=== PATIENT | female | born 1975 | race Caucasian/White ===

== ENCOUNTER 2021-09-19 08:34 | Outpatient (CLI) | payer BC, SELFPAY ==
[2021-09-19 09:16] LABS: Hematocrit 28.3 % (37.0-47.0); Hemoglobin 7.5 g/dL (12.0-15.0)
== END 2021-09-19 08:35 | disposition home or self-care (01) ==
LOC: ANHSURGERY 08:40
PROVIDERS: PCP Family Medicine; Visit Provider Student in an Organized Health Care Education/Training Program
DX: Z01.812 Encounter for preprocedural laboratory examination (principal); N92.0 Excessive and frequent menstruation with regular cycle
CPT/HCPCS: 36415; 85014; 85018

== ENCOUNTER 2021-09-23 00:15 | Day surgery (SDC) | payer BC, SELFPAY ==
[2021-09-17 14:37] VITALS: BMI 23.9
--- NOTE | 2021-09-17 14:47 | PC.NURSE ---
Report to the Outpatient Waiting Room, entrance under the green pavilion located off [facility], at time 11:00 on date 09/23/21. OR Time: 1:00. - You and your visitor will be asked a series of questions to screen for COVID 19 for your protection. - Only one visitor is allowed at this time. - The patient visitor is requested to leave or wait in car when not with patient. - A mask is required within the hospital. Patients may have clear liquids (water, carbonated beverages, clear teas, apple juice) until 3 hours prior to surgery (10:00) with a maximum of 20 ounces. - No food from midnight until time of surgery Take the following medications with a SIP of water the morning of surgery: NONE Medications to discontinue per physician: N/A Date to take last dose: N/A Please no make-up, nail venezuelan, hairspray, perfume, deodorant, or body powder the day of surgery. No jewelry (including any body piercings) or valuables the day of surgery, leave them at home. Please take a shower or bath the night before, or the morning of, surgery with an antibacterial soap. Wear comfortable, loose fitting clothing. - Jewelry must be removed prior to entering the operating room. Rings and piercings that are not removed may be cut off. - The hospital will not accept responsibility for valuables. - Please leave all valuables, including medications, at home the day of surgery. If you are going home after surgery, a licensed limo driver must drive you home. - NO public transportation without another adult. - We recommend that an adult stay with you for 24 hours following discharge. - We also recommend that you do not drive, make important decision, drink alcoholic beverages, or take any drugs that were not prescribed by your health care provider for at least 24 hours after your discharge time. Follow any additional instructions given to you from your surgeon. If you or anyone in your household have experienced Covid symptoms in the past week, please notify your surgeon or the nurse liaison at the phone number below for possible testing. Telephone instructions given to PT - KATE ROSSI and asked if any additional questions and then verbalized understanding. Patient advised to call surgeon office or pre surgery nurse liaison [phone] if any additional questions.
--- NOTE | 2021-09-23 08:00 | PM.IMHP ---
H&P: HPI History of Present Illness Date/Time: 09/23/21 08:00 Chief Complaint: Abnormal uterine bleeding Narrative: 46 yo who presents for hysteroscopy, D&C, endometrial ablation for abnormal uterine bleeding. Pt was complaining of heavy menses. Hgb found to be 7.5. She refused hormonal contraceptives and requested surgical management via ablation. Review of Systems Cardiovascular: Cardiovascular: Denies chest pain, Denies leg edema, Denies palpitations, Denies dyspnea and Denies dyspnea on exertion Respiratory: Respiratory: Denies cough, Denies dyspnea and Denies dyspnea on exertion Gastrointestinal: Gastrointestinal: Denies abdominal pain, Denies constipation, Denies diarrhea, Denies nausea and Denies vomiting Genitourinary: Genitourinary: Denies hematuria, Denies urinary frequency, Denies dysuria, Denies pelvic pain, Denies urinary incontinence and Denies vaginal discharge Neurologic: Reports system reviewed and no additional complaints, except as documented Psychiatric: Psychiatric: Reports no additional psychiatric complaints Endocrine: Endocrine: Denies palpitations [facility] Past Medical History Medical History Chronic insomnia Crohn's disease Labral tear of right hip joint Surgical History Surgical History History of delivery Social History Social History (Updated 03/16/20 @ 10:05 by Maria R Norman NP) Smoking status: Never smoker Alcohol intake: current Drinks per week: 1 Alcohol use details: One to two drinks per month Substance use: never Substance use type: does not use Living arrangements: with family Spiritual care concerns: No Meds Home Medications and Allergies Home Medications Medication Instructions Recorded Confirmed Type Low Dose Testosterone 1 applic transdermal DAILY 09/17/21 09/17/21 History Allergies Allergy/AdvReac Type Severity Reaction Status Date / Time erythromycin base AdvReac Nausea Verified 09/17/21 14:35 Exam Const: General: no acute distress Eyes: EOM: EOMs intact bilaterally Neck: Neck: supple Thyroid: thyroid normal Chest: Breast/axilla inspection: normal inspection of the breasts Breast/axilla palpation: normal palpation of the breasts, normal palpation of the axillae and no axillary lymphadenopathy Resp: Effort & Inspection: normal respiratory effort Auscultation: clear to auscultation bilaterally Cardio: Rate: regular rate Rhythm: regular rhythm GI: Inspection: non-distended GI Palp: Yes Soft to palpation, No Tenderness to palpation present (GI) and No Guarding due to palpation present (GI) Auscultation: normal bowel sounds : General: No bladder normal to palpation External Female Exam: normal external appearance Speculum Exam - Vagina: normal vaginal discharge and No vaginal bleeding Speculum Exam - Cervix: nontender Bimanual exam- vagina & uterus: No bladder normal to palpation and No Cervical tenderness present OB/external & speculum: No vaginal bleeding Skin: General skin exam: normal color and no rashes or lesions noted Neuro: Cognition (Neuro): normal cognition Speech: normal speech Extrem: General: normal to inspection and no edema Psych: Mental Status: mental status grossly normal Affect: normal affect Assessment and Plan Assessment and plan (1) Abnormal uterine bleeding (AUB): Code(s): N93.9 - Abnormal uterine and vaginal bleeding, unspecified Status: Acute Assessment and Plan: Pt having heavy menses hgb 7.5, will repeat prior to surgery pt declined hormonal contraceptives pelvic US shows normal myometrium and endometrial cavity plan for hysteroscopy, D&C, endometrial ablation
--- NOTE | 2021-09-23 08:03 | WPDHPUPDATE1 ---
History and Physical Update Update Date/Time: 09/23/21 08:03 History and Physical has been reviewed, including an updated exam of the patient. There are NO changes in the patient's condition. Risks, benefits, and alternatives have been discussed and questions answered. Patient agrees to proceed with procedure.
[2021-09-23 11:22] VITALS: BP 114/71; PULSE 79; RESP 16; TEMP 36.9; O2SAT 100
[2021-09-23] MEDS: LACTATED RINGERS 1,000 ML 30 ML IV CONT ×2 (12:00→13:58)
[2021-09-23 12:12] LABS: Hemoglobin 7.3 g/dL (12.0-15.0)
--- NOTE | 2021-09-23 12:31 | SUR.PREOP ---
per chaparro vincent rn talked with dr velasquez and aware of current H&H ,no orders given.
--- NOTE | 2021-09-23 12:34 | P.PNAN_ITS ---
Anes - Initial Pre Proc Eval Procedure: Operation Date: 09/23/21 13:00 Proposed Procedures p Hysteroscopy Dilation and Curettage, Summer Endometrial Ablation - Raman Ponce MD Date/Time: 09/23/21 12:34 Surgeon: Raman Ponce MD Pre Op Diagnosis: Heavy Bleeding Patient Data Age: 46 Gender: F Height: 1.6 m Weight: 65.1 kg Last Vital Signs Temp 36.9 C 09/23/21 11:22 Pulse 79 09/23/21 11:22 Resp 16 09/23/21 11:22 BP 114/71 09/23/21 11:22 Pulse Ox 100 09/23/21 11:22 O2 Del Method Room Air 09/23/21 11:22 Allergies Allergy/AdvReac Type Severity Reaction Status Date / Time erythromycin base AdvReac Nausea Verified 09/23/21 12:13 Home Medications Medication Instructions Recorded Confirmed Type Low Dose Testosterone 1 applic transdermal DAILY 09/17/21 09/17/21 History Laboratory Tests 09/23/21 11:56 Hgb 7.3 g/dL L g/dL (12.0-15.0) Hct 27.0 % L % (37.0-47.0) Patient hx anesthesia problems: none Family hx anesthesia problems: none Results Review: All pre-operative results and documents have been reviewed as part of the pre-op erative evaluation. [facility] Past Medical History Medical History Chronic insomnia Crohn's disease Labral tear of right hip joint Surgical History Surgical History History of delivery Social History Social History Smoking status: Never smoker Alcohol intake: current Drinks per week: 1 Alcohol use details: One to two drinks per month Substance use: never Substance use type: does not use Living arrangements: with family Spiritual care concerns: No Anes - Eval Final PreProcedure Day of Procedure 09/23/21 12:34 Heart: regular rate and rhythm Lungs: clear to auscultation Airway: Mallampati scale class II Neurological: alert and oriented Last oral intake: >/= 8 hours ASA classification: II Emergent: no Anesthetic plan: proceed Anesthesia type and monitoring: general GIVS and standard monitoring Results Review: All pre-operative results and documents have been reviewed as part of the pre- operative evaluation. Informed Consent: The patient's anesthetic plan and its attendant risks and benefits were discussed with the patient/family/POA. Questions were solicited and answers provided to the satisfaction of the patient/family/POA.
[2021-09-23] MEDS: LIDOCAINE HCL 1% PF 30 ML VIAL 10 ML INFILTRATE (13:14)
--- NOTE | 2021-09-23 13:43 | W.PM.PROC2 ---
Procedure Note - Detailed Date of Procedure 09/23/21 Pre-op Diagnosis Heavy Bleeding Post-op Diagnosis Same Procedure Performed paracervical block hysteroscopy dilation & curettage endometrial ablation Surgeon Raman Ponce MD Indications abnormal uterine bleeding Findings normal appearing intrauterine cavity. Normal tubal ostia bilaterally Description of Procedure Kiersten Mix presents for the above procedure for AUB. She was counseled as to the indications, risks, benefits, and alternatives to surgery, with the risks including bleeding, infection, damage to surrounding organs, VTE, and complications of anesthesia. Her verbal and written consent was obtained. PROCEDURE: The patient was taken to the OR and general anesthesia induced. She was prepped and draped in Lucas stirrups with support of the back and bilateral lower extremities. I/O catheterization performed of the bladder. The above findings were noted. Infiltration with 1% lidocaine at the 3 and 9 o'clock cervical positions was performed. A single tooth tenaculum was placed on the anterior lip of the cervix. The uterus sounded to 8.5 cm. The cervix was dilated with sequential Yvonne dilators. Hysteroscopy, using a normal saline medium, was performed and showed the above findings. Sharp uterine curettage was then performed and tissue placed on Telfa. The Summer device was set to a depth of 6 cm. The device was inserted into the uterus and deployed. Good fit was reassured by the device indicator. The cervical balloon was insufflated to ensure a good seal. Uterine integrity test was performed by the Summer device and was successful. The device was then activated. The entire ablation procedure lasted 120 seconds. The cervical balloon was desufflated and the device was removed from the uterus. The hysteroscope was re-introduced to ensure adequate tissue ablation. The tenaculum was removed and hemostasis was observed. The patient tolerated the procedure well. Sponge, lap, and needle counts were correct. The patient was taken to the recovery room in stable condition. Estimated Blood Loss 25 Urine Output 200 Drains No Packing No Pathology Yes (endometrial curettings ) Complications No immediate complications Condition Stable Disposition PACU
[2021-09-23 13:58] VITALS: BP 107/76; PULSE 61; RESP 20; O2SAT 100
[2021-09-23 14:25] VITALS: BP 117/80; PULSE 61; RESP 20
[2021-09-23] MEDS: oxyCODONE HCL (*CRX) 5 MG TAB IR PO (14:26)
[2021-09-23] MEDS: fentaNYL CITRATE INJ (*CRX) 100 MCG/2 ML VIAL 25 MCG IV PUSH ×2 (14:49→14:55)
[2021-09-23 14:55] VITALS: BP 132/64; PULSE 83; RESP 20
[2021-09-23] MEDS: KETOROLAC 15 MG/ML VIAL (*BKC) IV PUSH (15:17)
[2021-09-23 15:25] VITALS: BP 114/75; PULSE 68; RESP 20
[2021-09-23 15:45] VITALS: BP 104/71; PULSE 72; RESP 20
== END 2021-09-23 15:50 | disposition home or self-care (01) ==
PROVIDERS: PCP Family Medicine; Visit Provider Student in an Organized Health Care Education/Training Program
PROC: 0U5B8ZZ Destruction of Endometrium, Via Natural or Artificial Opening Endoscopic (ICD-10-PCS; CPT 58563; principal; 2021-09-23 13:00)
DX: N93.9 Abnormal uterine and vaginal bleeding, unspecified (principal); N92.0 Excessive and frequent menstruation with regular cycle
CPT/HCPCS: 58563; 36415; 85014; 85018; 88305; A9270; J1885; J2250; J2704; J3010; J7030; J7120

== ENCOUNTER 2021-10-17 16:49 | Outpatient (CLI) | payer BC, SELFPAY ==
--- NOTE | ~2021-10-17 | MM_ITS ---
EXAMINATION: MM screening frank BI w itzel HISTORY: Screening mammogram TECHNIQUE: Craniocaudal and mediolateral oblique 3-D tomosynthesis images were obtained and synthetic 2-D images were generated. CAD analysis was submitted and interpreted. COMPARISON: No prior mammogram is available for comparison at this institution. BREAST PARENCHYMAL COMPOSITION: The breasts are extremely dense, which lowers the sensitivity of mamm ography. FINDINGS: There is no suspicious mass, calcification, or architectural distortion to suggest malignan cy in either breast. IMPRESSION: 1. No mammographic evidence of malignancy. 2. Recommend routine screening mammography in one year. BI-RADS Category 1: Negative Reviewed, dictated and finalized at location A.
== END 2021-10-17 16:50 | disposition home or self-care (01) ==
PROVIDERS: PCP Family Medicine; Visit Provider Student in an Organized Health Care Education/Training Program
DX: Z12.31 Encounter for screening mammogram for malignant neoplasm of breast (principal)
CPT/HCPCS: 77063; 77067

== ENCOUNTER 2022-02-13 08:57 | Outpatient (CLI) | payer BC, SELFPAY ==
[2022-02-13 10:00] LABS: Basophils Absolute Auto 0.1 K/mm3 (0.0-0.1); Basophils Percent Auto 0.7 % (0.2-1.2); Eosinophils Absolute Auto 0.2 K/mm3 (0-0.3); Eosinophils Percent Auto 3.2 % (0-4.4); Hemoglobin 13.5 g/dL (12.0-15.0); Immature Granulocyte Absolute 0.01 K/mm3 (0.00-0.031); Immature Granulocyte Percent A 0.1 % (0-0.5); Lymphocytes Absolute Auto 1.14 K/mm3 (0.9-3.2); Lymphocytes Percent Auto 16.5 % (18.3-44.2); Mean Corpuscular HGB Conc 32.1 g/dl (32-36); Mean Corpuscular Hemoglobin 28.2 pg (26-34); Mean Corpuscular Volume 87.7 fl (80-100); Mean Platelet Volume 10.1 fl (7.4-10.4); Monocytes Absolute Auto 0.5 K/mm3 (0.1-0.6); Monocytes Percent Auto 7.2 % (2.6-8.5); Neutrophils Percent Auto 72.3 % (45.5-73.1); Platelet Count Result 408 k/mm3 (150-375); Red Blood Count 4.79 M/mm3 (4.2-5.4); Red Cell Distribution Width 14.2 % (11.5-14.5); White Blood Count 6.9 K/mm3 (4.5-10.0)
== END 2022-02-13 08:58 | disposition home or self-care (01) ==
PROVIDERS: PCP Family Medicine; Visit Provider Obstetrics & Gynecology
DX: N93.9 Abnormal uterine and vaginal bleeding, unspecified (principal); Z01.818 Encounter for other preprocedural examination
CPT/HCPCS: 36415; 85025; 86850; 86900; 86901

== ENCOUNTER 2022-02-21 01:20 | Day surgery (SDC) | payer BC, SELFPAY ==
[2022-02-07 08:12] VITALS: BMI 24.8
--- NOTE | 2022-02-07 08:13 | PC.NURSE ---
Report to the Outpatient Waiting Room, entrance under the green pavilion located off [facility], at time _0930_ on date _[id number]_. Planned Procedure Time: _1130_. Time changes happen often and if your time is changed the preop area will call you the afternoon before. - You and your visitor will be asked to self-screen and do not enter if you have any COVID symptoms. - Only one visitor is requested with a max of two and NO children visitors are allowed at this time. - The patient visitor may be requested to leave or wait in car when not with patient due to distancing restrictions. - A mask is optional within the hospital. Patients may have clear liquids (water, carbonated beverages, clear teas, apple juice) until 3 hours prior to surgery with a maximum of 20 ounces. - No food from midnight until time of surgery Take the following medications with a SIP of water the morning of surgery: ___None Medications to discontinue per physician Multivitamin and probiotic Date to take last [phone] Please no make-up, nail mohawk, hairspray, perfume, deodorant, or body powder the day of surgery. No jewelry (including any body piercings) or valuables the day of surgery, leave them at home. Please take a shower or bath the night before, or the morning of, surgery with an antibacterial soap. Wear comfortable, loose fitting clothing. - Jewelry must be removed prior to entering the operating room. Rings and piercings that are not removed may be cut off. - The hospital will not accept responsibility for valuables. - Please leave all valuables, including medications, at home the day of surgery. If you are going home after surgery, a licensed short haul driver must drive you home. - NO public transportation without another adult if you receive anesthesia. - We recommend that an adult stay with you for 24 hours following discharge. - We also recommend that you do not drive, make important decision, drink alcoholic beverages, or take any drugs that were not prescribed by your health care provider for at least 24 hours after your discharge time. Follow any additional instructions given to you from your surgeon. If you or anyone in your household have experienced Covid symptoms in the past week, please notify your surgeon or the nurse liaison at the phone number below for possible testing. Telephone instructions given to __Patient___and asked if any additional questions and then verbalized understanding. Patient advised to call surgeon office or pre surgery nurse liaison [phone] if any additional questions.
--- NOTE | 2022-02-19 07:51 | PM.IMHP ---
H&P: HPI History of Present Illness Date/Time: 02/19/22 07:51 Chief Complaint: Bleeding refractory to medical therapy/pelvic pain Narrative: This is a 46-year-old female status post ablation who continues to have heavy bleeding has been prolonged and uncomfortable. She also has an enlarged uterus. Risks and benefits including not exclusive of , aspiration pneumonia, bleeding, transfusion, perforation injury to bowel, bladder, ureters, or other internal organs with need for open laparotomy secondary to robotic hysterectomy bilateral salpingectomy reviewed. She had all questions answered. She received the [employer] handout entitled hysterectomy as well as the de [place]etta handout. She had all questions answered and asked to proceed PMFSH Past Medical History Medical History Chronic insomnia Crohn's disease Labral tear of right hip joint Surgical History Surgical History H/O prior ablation treatment (~09/2021) History of delivery Social History Social History Smoking status: Never smoker Alcohol intake: current Drinks per week: 1 Alcohol use details: One to two drinks per month Substance use: never Substance use type: does not use Lack of Transportation: No Lack of Food: Never True Current Housing: I Have Housing Concerned About Future Housing: No Difficulty Paying Gas/Electric Bills: No Difficulty Paying for Meds: No Currently Unemployed: No Education: Master's Degree or Higher Difficulty w/ Childcare or Family Care: No Spiritual care concerns: No Meds Home Medications and Allergies Home Medications Medication Instructions Recorded Confirmed Type acetaminophen 500 mg capsule 500 mg PO Q6H PRN pain #30 caps 09/23/21 02/18/22 Rx ibuprofen 600 mg tablet 600 mg PO Q6H PRN pain #30 tabs 09/23/21 02/18/22 Rx lactobacillus comb no.10 20 20,000 mmu cells PO DAILY 02/07/22 02/18/22 History billion cell capsule (Probiotic) multivitamin 1 tablet PO DAILY 02/07/22 02/18/22 History Low Dose Testosterone 1 applic transdermal 3XW 02/14/22 02/18/22 History Allergies Allergy/AdvReac Type Severity Reaction Status Date / Time erythromycin base AdvReac Nausea Verified 02/14/22 08:55 Exam Const: General: cooperative, healthy appearing, comfortable and average body habitus Orientation/consciousness: oriented to person, oriented to place and oriented to time HENMT: Head: normal to inspection Resp: Effort & Inspection: normal respiratory effort Cardio: Rate: regular rate Rhythm: regular rhythm Heart sounds: S1 normal heart sound present and S2 normal heart sound present GI: Inspection: normal to inspection : External Female Exam: normal external appearance Speculum Exam - Vagina: normal appearance of the vagina Speculum Exam - Cervix: normal appearance of the cervix and Cervical os open Bimanual exam- vagina & uterus: enlarged Bimanual Exam- Adnexa, other: normal adnexae Assessment and Plan Assessment and plan (1) Dysmenorrhea: Code(s): N94.6 - Dysmenorrhea, unspecified Status: Acute (2) Enlarged uterus: Code(s): N85.2 - Hypertrophy of uterus Status: Acute Plan Robotic total vaginal hysterectomy and bilateral salpingectomy
--- NOTE | 2022-02-20 12:09 | WPDANESEPPF ---
Anes - Initial Pre Proc Eval Procedure: Operation Date: 02/21/22 11:30 Proposed Procedures p Robotic Assisted Total Vaginal Hysterectomy with Bilateral Salpingectomy - Juan Dumont MD Date/Time: 02/20/22 12:09 Surgeon: Juan Dumont MD Pre Op Diagnosis: Prolong Uterine Bleed, Fail Ablat Enlarge Uterus Patient Data Age: 46 Gender: F Height: 1.6 m Weight: 63.6 kg Allergies Allergy/AdvReac Type Severity Reaction Status Date / Time erythromycin base AdvReac Nausea Verified 02/14/22 08:55 Home Medications Medication Instructions Recorded Confirmed Type acetaminophen 500 mg capsule 500 mg PO Q6H PRN pain #30 caps 09/23/21 02/21/22 Rx ibuprofen 600 mg tablet 600 mg PO Q6H PRN pain #30 tabs 09/23/21 02/21/22 Rx lactobacillus comb no.10 20 20,000 mmu cells PO DAILY 02/07/22 02/21/22 History billion cell capsule (Probiotic) multivitamin 1 tablet PO DAILY 02/07/22 02/21/22 History Low Dose Testosterone 1 applic transdermal 3XW 02/14/22 02/18/22 History hydrocodone 5 mg-acetaminophen 325 1 tablet PO Q4H PRN pain #30 tabs 02/21/22 Rx mg tablet Patient hx anesthesia problems: none Family hx anesthesia problems: none Results Review: All pre-operative results and documents have been reviewed as part of the pre-operative evaluation. [facility] Past Medical History Medical History (Updated 02/19/22 @ 07:53 by Juan Dumont MD) Chronic insomnia Crohn's disease Labral tear of right hip joint Surgical History Surgical History (Updated 02/20/22 @ 12:09 by Phillip Marquez DO) H/O prior ablation treatment (~09/2021) History of delivery History of tonsillectomy Social History Social History Smoking status: Never smoker Alcohol intake: current Drinks per week: 1 Alcohol use details: One to two drinks per month Substance use: never Substance use type: does not use Lack of Transportation: No Lack of Food: Never True Current Housing: I Have Housing Concerned About Future Housing: No Difficulty Paying Gas/Electric Bills: No Difficulty Paying for Meds: No Currently Unemployed: No Education: Master's Degree or Higher Difficulty w/ Childcare or Family Care: No Living arrangements: with family Spiritual care concerns: No Anes - Eval Final PreProcedure Day of Procedure 02/20/22 12:09 Patient weight: normal Heart: regular rate and rhythm Lungs: clear to auscultation and normal air movement Airway: Mallampati scale class II Neurological: alert and oriented Last oral intake: >/= 8 hours ASA classification: II Emergent: no Anesthetic plan: proceed Anesthesia type and monitoring: general ETT and standard monitoring Results Review: All pre-operative results and documents have been reviewed as part of the pre-operative evaluation. Informed Consent: The patient's anesthetic plan and its attendant risks and benefits were discussed with the patient/family/POA. Questions were solicited and answers provided to the satisfaction of the patient/family/POA.
[2022-02-21] VITALS (11 sets, daily range): BP systolic 90–110; BP diastolic 50–75; PULSE 56–85; RESP 11–16; TEMP 36.4–37.1; O2SAT 97–100
--- NOTE | 2022-02-21 06:17 | WPDHPUPDATE1 ---
History and Physical Update Update Date/Time: 02/21/22 06:17 History and Physical has been reviewed, including an updated exam of the patient. There are NO changes in the patient's condition. Risks, benefits, and alternatives have been discussed and questions answered. Patient agrees to proceed with procedure.
[2022-02-21] MEDS: ACETAMINOPHEN 500 MG TABLET 1000 MG PO (09:52)
[2022-02-21] MEDS: KETOROLAC 15 MG/ML VIAL (*BKC) IV PUSH (10:16)
[2022-02-21] MEDS: LACTATED RINGERS 1,000 ML 30 ML IV CONT ×3 (10:16→14:16)
[2022-02-21] MEDS: ceFAZolin 2 GM/D5W 50 ML 2 GM/50 ML BAG IVPB (10:45)
--- NOTE | 2022-02-21 12:20 | W.PM.PROC2 ---
Procedure Note - Detailed Date of Procedure 02/21/22 Pre-op Diagnosis Prolong Uterine Bleed, Fail Ablat Enlarge Uterus Post-op Diagnosis Other (Multiple adhesions) Procedure Performed robotic total hysterectomy salpingectomy with extensive lysis of Surgeon Juan Dumont MD Anesthesia General Indications is a 46-year-old female with continued heavy bleeding pelvic pain and findings imaging with enlarged uterus. Findings The uterus was completely adherent to the anterior abdominal wall. Multiple adhesions were seen the ovaries appeared within normal limits the tubes were normal. Description of Procedure Patient was prepped draped in normal sterile fashion placed in dorsal lithotomy position. Under excellent general trach anesthesia weighted speculum placed posterior fornix vagina. Anterior lip of the cervix grasped with a single-tooth tenaculum. The uterus was sounded to 12cm. Serial dilatation with fragmented dilators performed followed by passes the 10. LUCIANO and the 3. Cold cup. Next the 16 [place] catheter was placed in the bladder and bladder drained clear urine. Weighted speculum and single-tooth removed the gloves were changed. Supra umbilical incision made the Veress needle passed in the abdomen. Abdomen filled with CO2 gas to 15 made the 8mm trocar advanced the abdomen downside visualized under seen. Gas reattached the patient placed in Trendelenburg right left lateral quadrant incisions made 8mm trocars advanced under direct visualization assuring no injury. The right upper quadrant incision made the 8mm trocar advanced under direct visualization. The robot was docked. Attention was turned to the console. Multiple adhesions were seen anteriorly the uterus was difficult was difficult to see due to add omental adhesions these were sharply dissected until the uterus could be seen. The uterus was sharply adhesed to the anterior abdominal wall and using sharpDissection with cautery this was serially brought off the anterior abdominal. The left round ligament was then grasped, burned, cut. The right round ligament was grasped, cut, burned. The fallopian tube on the left was markedly adherent to the left lateral sidewall this was sharply dissected away and dissected away from the ovarian complex and left attached to uterine origin. The right fallopian tube was dissected away from the right ovary and the left attached to the uterine origin to be the removed with the specimen. Anteriorly space by spaced the uterus was from the anterior abdominal wall until what appeared to be the bladder could be seen. This involved 35minutes of dissection by going cell layer by cell layer. A bladder flap was then formed and the bladder portion laterally and caudally away from cervix and uterus. The utero-ovarian ligament on the left was skeletonized clamping burning cutting and conserving the left ovary. The right ovary was conserved by clamping burning and cutting the utero-ovarian ligament right and this was brought to the round ligament. The cardinal broad ligaments on the left were then serially skeletonized clamping burning cutting and 3 these down lateral edge to large tortuous uterine vessels could be seen laps were clamped, burned, cut. In like fashion the cardinal broad ligaments on the right were serially skeletonized clamping burning cutting and down the lateral edge of uterus and cervix to the uterine vessels could be seen right. These were individually clamped, burned, cut. A colpotomy incision was made the cervix uterus and tubes removed through the vagina. Hemostasis was assured. Vagina closed with continuous running 0V lock from lateral edge to lateral edge back to the midline. Irrigation undertaken to clear and hemostasis was assured. The robot was undocked. The gas removed from the abdomen. The incisions closed with 4-0 Monocryl and glue. The patient awakened went recovery in satisfactory condition. All sponge, ne
[2022-02-21] MEDS: fentaNYL CITRATE INJ (*CRX) 100 MCG/2 ML VIAL 25 MCG IV PUSH ×8 (12:55→14:06)
--- NOTE | 2022-02-21 14:30 | ADMGEN ---
This patient, Kiersten Mix, was admitted to OB 2nd Floor Room 292-00. Patient/family oriented to hospital policies and general routines including ID bracelet, bed and alarms, visiting hours, pain management, procedures, bathroom and other care routines, personal items, smoking policy, room service/diet, and visiting hours. Information on how to activate the Rapid Response Team has been discussed. Patient/Family are encouraged to report perceived risks to care and to ask questions if they do not understand what they are told or what they should do.
[2022-02-21] MEDS: DEXTROSE 5%/LACTATED RINGERS 1,000 ML 125 ML IV CONT ×2 (14:54→22:49)
[2022-02-21] MEDS: KETOROLAC 30 MG/ML VIAL (*BKC) IV PUSH ×2 (15:49→21:00)
[2022-02-21] MEDS: HYDROcodone/acetaminophen (*CRX) 10-325 MG TABLET 1 TAB PO ×3 (16:31→22:00)
[2022-02-21] MEDS: DOCUSATE SODIUM 100 MG CAPSULE PO (16:31)
[2022-02-21] MEDS: ONDANSETRON INJ 4 MG/2 ML VIAL IV PUSH (19:00)
[2022-02-21] MEDS: SIMETHICONE 80 MG TAB.CHEW PO (21:07)
[2022-02-22 00:20] VITALS: BP 95/58; PULSE 72; RESP 16; TEMP 36.8; O2SAT 98
[2022-02-22] MEDS: SIMETHICONE 80 MG TAB.CHEW PO ×2 (00:30→10:17)
[2022-02-22] MEDS: HYDROcodone/acetaminophen (*CRX) 10-325 MG TABLET 1 TAB PO ×3 (00:30→11:20)
[2022-02-22] MEDS: ONDANSETRON INJ 4 MG/2 ML VIAL IV PUSH ×2 (01:04→07:03)
[2022-02-22] MEDS: KETOROLAC 30 MG/ML VIAL (*BKC) IV PUSH ×2 (01:04→07:01)
[2022-02-22 04:30] VITALS: BP 100/58; PULSE 68; RESP 16; TEMP 36.8
[2022-02-22 04:54] LABS: Basophils Percent Auto 0.4 % (0.2-1.2); Eosinophils Absolute Auto 0.1 K/mm3 (0-0.3); Eosinophils Percent Auto 0.9 % (0-4.4); Hematocrit 32.3 % (37.0-47.0); Hemoglobin 10.5 g/dL (12.0-15.0); Immature Granulocyte Absolute 0.02 K/mm3 (0.00-0.031); Immature Granulocyte Percent A 0.2 % (0-0.5); Lymphocytes Absolute Auto 0.69 K/mm3 (0.9-3.2); Lymphocytes Percent Auto 8.1 % (18.3-44.2); Mean Corpuscular HGB Conc 32.5 g/dl (32-36); Mean Corpuscular Hemoglobin 28.7 pg (26-34); Mean Corpuscular Volume 88.3 fl (80-100); Mean Platelet Volume 10.1 fl (7.4-10.4); Monocytes Absolute Auto 0.7 K/mm3 (0.1-0.6); Neutrophils Percent Auto 82.4 % (45.5-73.1); Platelet Count Result 286 k/mm3 (150-375); Red Blood Count 3.66 M/mm3 (4.2-5.4); Red Cell Distribution Width 14.1 % (11.5-14.5); White Blood Count 8.5 K/mm3 (4.5-10.0)
[2022-02-22] MEDS: DEXTROSE 5%/LACTATED RINGERS 1,000 ML 125 ML IV CONT (06:59)
[2022-02-22 07:00] VITALS: BP 93/57; PULSE 74; RESP 18; TEMP 37.3; O2SAT 96
--- NOTE | 2022-02-22 09:43 | PM.GYNPNOP ---
WATER SYSTEMS ENGINEER - A/P Assessment and plan (1) Enlarged uterus: Code(s): N85.2 - Hypertrophy of uterus Status: Acute Assessment and Plan: A: POD#1, s/p robotic assisted TVHBS, doing well. P: Home to f/u 2 weeks in office. (2) Dysmenorrhea: Code(s): N94.6 - Dysmenorrhea, unspecified Status: Acute (3) Abnormal uterine bleeding (AUB): Code(s): N93.9 - Abnormal uterine and vaginal bleeding, unspecified Status: Acute Postoperative Procedures: Procedures Operation Date: 02/21/22 11:30 Actual Procedure Side Surgeon p Robotic Assisted Total Vaginal Hysterectomy with Bilateral Salpingectomy, Extensive Lysis of Adhesions Juan Dumont MD Postoperative day: 1 Time Spent With Patient Time with patient: less than 15 minutes WATER SYSTEMS ENGINEER- PN:Subj Post-Op Subjective Date/time seen: 02/22/22 09:43 Interval history: Pain OK. Tolerating diet. Voiding. Would like to go home. Exam Narrative: AVSS I/O OK ABD soft, nontender. Incisions c/d/i. EXT nontender WATER SYSTEMS ENGINEER - PN: Obj Data Vital Signs Vital Signs: Vital Signs - 24 hr 02/21/22 10:01 02/21/22 12:35 02/21/22 12:50 Temperature 37.1 C 36.4 C Pulse Rate 85 60 71 Respiratory Rate 16 11 L 12 Blood Pressure 110/71 97/62 L 98/69 L Pulse Oximetry 99 97 100 Oxygen Delivery Room Air Simple Face Mask Simple Face Mask Oxygen Flow Rate 6 6 02/21/22 13:05 02/21/22 13:10 02/21/22 13:20 Temperature Pulse Rate 66 56 L Respiratory Rate 14 12 Blood Pressure 96/65 L 98/63 L Pulse Oximetry 100 97 Oxygen Delivery Simple Face Mask Room Air Room Air Oxygen Flow Rate 6 02/21/22 13:35 02/21/22 13:50 02/21/22 14:05 Temperature Pulse Rate 66 57 L 65 Respiratory Rate 12 12 12 Blood Pressure 95/61 L 90/59 L 93/61 L Pulse Oximetry 98 97 99 Oxygen Delivery Room Air Room Air Room Air Oxygen Flow Rate 02/21/22 14:20 02/21/22 14:45 02/21/22 14:45 Temperature 36.5 C 36.7 C Pulse Rate 76 66 Respiratory Rate 14 16 Blood Pressure 96/63 L 98/50 L Pulse Oximetry 98 97 Oxygen Delivery Room Air Room Air Oxygen Flow Rate 02/21/22 19:05 02/21/22 19:05 02/22/22 00:20 Temperature 36.7 C 36.8 C Pulse Rate 84 72 Respiratory Rate 16 16 Blood Pressure 106/75 95/58 L Pulse Oximetry 99 98 Oxygen Delivery Room Air Oxygen Flow Rate 02/22/22 00:20 02/22/22 04:30 02/22/22 04:30 Temperature 36.8 C Pulse Rate 68 Respiratory Rate 16 Blood Pressure 100/58 L Pulse Oximetry Oxygen Delivery Room Air Room Air Oxygen Flow Rate 02/22/22 07:00 Temperature 37.3 C Pulse Rate 74 Respiratory Rate 18 Blood Pressure 93/57 L Pulse Oximetry 96 Oxygen Delivery Oxygen Flow Rate Intake/Output Intake/Output: Intake & Output 02/19/22 02/20/22 02/21/22 02/22/22 23:59 23:59 23:59 23:59 Intake Total 2800 1700 Output Total 484 1050 Balance 2316 650 Meds/Results Medications: Active Medications Generic Name Dose Route Start Last Admin Trade Name Freq PRN Reason Stop Dose Admin Hydrocodone Bitart/Acetaminophen 1 tab 02/21/22 14:26 Hydrocodone/Acetaminophen (*Crx) 5-325 Mg Tablet PO Q3H PRN Pain Rated 5 or Less Hydrocodone Bitart/Acetaminophen 1 tab 02/21/22 14:26 02/22/22 05:32 Hydrocodone/Acetaminophen (*Crx) 10-325 Mg Tablet PO 1 tab Q3H PRN Administration Pain Rated 6 or Greater Docusate Sodium 100 mg 02/21/22 17:00 02/21/22 16:31 Docusate Sodium 100 Mg Capsule PO 100 mg BID EMEKA Administration Enoxaparin Sodium 40 mg 02/22/22 09:00 Enoxaparin 40 Mg/0.4 Ml Syringe SUB-Q DAILY EMEKA Dextrose/Lactated Ringer's 1,000 mls @ 125 mls/hr 02/21/22 14:26 02/22/22 09:39 Dextrose 5%/Lactated Ringers IV CONT Infused .Q8H EMEKA Infusion Ibuprofen 600 mg 02/21/22 14:26 Ibuprofen 600 Mg Tablet PO Q6H PRN Cramping Ketorolac Tromethamine 30 mg 02/21/22 14:26 02/22/22 07:01 Ketorolac 30 Mg/Ml Vial (*Bk) IV
--- NOTE | 2022-02-22 09:44 | PM.DS ---
DS: Admitting Diagnosis Discharge Date 02/22/22 Admitting Diagnosis Pelvic pain Vaginal bleeding DS: Discharge Diagnosis Discharge Diagnosis (1) Enlarged uterus: Code(s): N85.2 - Hypertrophy of uterus Status: Acute (2) Dysmenorrhea: Code(s): N94.6 - Dysmenorrhea, unspecified Status: Acute (3) Abnormal uterine bleeding (AUB): Code(s): N93.9 - Abnormal uterine and vaginal bleeding, unspecified Status: Acute DS: Summary Hospital Course Hospital Course: Admitted on date of scheduled surgery. Did well postoperatively and was sent home on POD#1. Time Spent with Patient Time attestation: Total time spent providing and/or coordinating discharge services: DS: Data Data Completed and Pending Pending studies at discharge: Pending at discharge 02/21/22 11:19 Surgical [PTH] Routine Labs on day of discharge: Labs from last 24 hours 02/22/22 04:24 WBC 8.5 RBC 3.66 L Hgb 10.5 L D Hct 32.3 L MCV 88.3 MCH 28.7 MCHC 32.5 RDW 14.1 Plt Count 286 MPV 10.1 Immature Gran % (Auto) 0.2 Neut % (Auto) 82.4 H Lymph % (Auto) 8.1 L [place] % (Auto) 8.0 Eos % (Auto) 0.9 Baso % (Auto) 0.4 Lymph # (Auto) 0.69 L [place] # (Auto) 0.7 H Eos # (Auto) 0.1 Baso # (Auto) 0.0 Abs Immat Gran (auto) 0.02 Absolute Neuts (auto) 7.0 H Absolute Nucleated RBC 0.0 Nucleated RBC % 0.0 Discharge Plan Discharge Patient Disposition: Home, Self-Care Discharge Instructions: Nothing in vagina for six weeks. Call or return if temperature above 100.4? F, increased abdominal pain, increased vaginal bleeding or any new problems. Stand Alone Forms: General Discharge Instructions Follow-up/Referrals: Juan Keita MD [Physician] - 2 Weeks Discharge Medications: New hydrocodone-acetaminophen 5-325 mg tablet 1 tablet PO Q4H PRN (Reason: pain) Qty: 30 0RF Continued acetaminophen 500 mg capsule 500 mg PO Q6H PRN (Reason: pain) Qty: 30 0RF ibuprofen 600 mg tablet 600 mg PO Q6H PRN (Reason: pain) Qty: 30 0RF Low Dose Testosterone 1 applic transdermal 3XW multivitamin Tablet 1 tablet PO DAILY Probiotic 20 billion cell Capsule 20,000 mmu cells PO DAILY Rx Instructions: administer with a meal
[2022-02-22] MEDS: DOCUSATE SODIUM 100 MG CAPSULE PO (10:16)
[2022-02-22] MEDS: ENOXAPARIN 40 MG/0.4 ML SYRINGE SUB-Q (10:17)
--- NOTE | 2022-02-22 10:58 | P.PNAN_ITS ---
Anes - Prog Note Post-Op Date/Time: 02/22/22 10:58 Cardiovascular status: normal Respiratory status: normal Airway patency: baseline Mental status: baseline Post-Op hydration status: normal Vital Signs: Last Vital Signs Temp 37.3 C 02/22/22 07:00 Pulse 74 02/22/22 07:00 Resp 18 02/22/22 07:00 BP 93/57 L 02/22/22 07:00 Pulse Ox 96 02/22/22 07:00 O2 Del Method Room Air 02/22/22 04:30 O2 Flow Rate 6 02/21/22 13:05 Pain Score (VAS): 0 I/O: Intake & Output 02/21/22 02/22/22 02/22/22 23:59 07:59 15:59 Intake Total 1550 1400 300 Output Total 459 1050 Balance 1091 350 300 Laboratory Tests 02/22/22 04:24 02/22/22 04:24 WBC 8.5 RBC 3.66 L Hgb 10.5 L D Hct 32.3 L MCV 88.3 MCH 28.7 MCHC 32.5 RDW 14.1 Plt Count 286 MPV 10.1 Immature Gran % (Auto) 0.2 Neut % (Auto) 82.4 H Lymph % (Auto) 8.1 L [place] % (Auto) 8.0 Eos % (Auto) 0.9 Baso % (Auto) 0.4 Lymph # (Auto) 0.69 L [place] # (Auto) 0.7 H Eos # (Auto) 0.1 Baso # (Auto) 0.0 Abs Immat Gran (auto) 0.02 Absolute Neuts (auto) 7.0 H Absolute Nucleated RBC 0.0 Nucleated RBC % 0.0 Post-procedural complaints: nausea Patient Feedback: Patient satisfied with anesthetic care.
--- NOTE | 2022-02-22 10:59 | PC.NURSE ---
Luis Miguel Brar RN has looked over and approved patient's charting that Ann Clark, Student RN, has completed.
== END 2022-02-22 11:24 | disposition home or self-care (01) ==
LOC: ANHSURGERY 09:46 → ANHOB2 14:29
PROVIDERS: PCP Family Medicine; Visit Provider Obstetrics & Gynecology
PROC: (CPT 58552; principal; 2022-02-21 11:30)
DX: N93.9 Abnormal uterine and vaginal bleeding, unspecified (principal); N94.6 Dysmenorrhea, unspecified; N83.8 Other noninflammatory disorders of ovary, fallopian tube and broad ligament; N80.203 Endometriosis of bilateral fallopian tubes, unspecified depth
CPT/HCPCS: 58552; S2900; 36415; 85025; 88307; 99199; A9270; J0330; J0690; J1100; J1650; J1885; J2250; J2370; J2405; J2704; J2710; J3010; J7030; J7120; J7121

== ENCOUNTER 2022-05-14 11:30 | Outpatient (CLI) | payer BC, SELFPAY ==
[2022-05-20 10:20] LABS: Kit Draw Collected
== END 2022-05-14 11:31 | disposition home or self-care (01) ==
LOC: ANHGOSHLAB 11:31
PROVIDERS: PCP Family Medicine; Visit Provider Nurse Practitioner
DX: R53.83 Other fatigue (principal); R63.5 Abnormal weight gain
CPT/HCPCS: 36415

== ENCOUNTER 2022-05-15 12:41 | Outpatient (CLI) | payer BC, SELFPAY ==
--- NOTE | ~2022-05-15 | US_ITS ---
EXAMINATION: US thyroid DATE: 05/15/2022 12:53 INDICATION: Nontoxic goiter. TECHNIQUE: Multiple ultrasound images of the thyroid were obtained. COMPARISON: None. FINDINGS: The right thyroid lobe measures 4.5 x 2.0 x 1.9 cm. The left thyroid lobe measures 4.2 x 1.8 x 1.4 c m. In the right thyroid lobe, there is a 9 mm solid, hypoechoic, wider than tall nodule with periphe ral calcifications (TI-RADS TR4). IMPRESSION: 1. Small thyroid nodule, likely not clinically significant. No follow-up is needed. Reviewed, dictated and finalized at location A. IMPRESSION: 1. Small thyroid nodule, likely not clinically significant. No follow-up is nee ded.
== END 2022-05-15 12:42 ==
LOC: GOSHIMG 12:41
PROVIDERS: PCP Family Medicine; Visit Provider Nurse Practitioner
DX: E04.1 Nontoxic single thyroid nodule (principal)
CPT/HCPCS: 76536

== ENCOUNTER 2022-06-18 02:08 | Day surgery (SDC) | payer BC, SELFPAY ==
[2022-06-06 15:13] VITALS: BMI 26.5
--- NOTE | 2022-06-18 07:48 | WPDANESEPPF ---
Anes - Initial Pre Proc Eval Procedure: Operation Date: 06/18/22 10:30 Proposed Procedures p Screening Colonoscopy - Koby Ojeda MD Date/Time: 06/18/22 07:48 Surgeon: Kboy Ojeda MD Pre Op Diagnosis: neoplasm screening Patient Data Age: 46 Gender: F Height: 1.6 m Weight: 68 kg Allergies Allergy/AdvReac Type Severity Reaction Status Date / Time erythromycin base AdvReac Nausea Verified 06/18/22 09:22 Home Medications Medication Instructions Recorded Confirmed Type lactobacillus comb no.10 20 20,000 mmu cells PO DAILY 02/07/22 06/18/22 History billion cell capsule (Probiotic) multivitamin 1 tablet PO DAILY 02/07/22 06/18/22 History estradiol 0.5 mg tablet 0.5 mg PO DAILY 05/14/22 06/18/22 History omeprazole 40 mg capsule,delayed 40 mg PO DAILY #30 caps 05/29/22 06/18/22 Rx release sucralfate 1 gram tablet 1 g PO BID #90 tabs 05/29/22 06/18/22 Rx Patient hx anesthesia problems: none Family hx anesthesia problems: none Results Review: All pre-operative results and documents have been reviewed as part of the pre-operative evaluation. [facility] Past Medical History Medical History Chronic insomnia Crohn's disease Labral tear of right hip joint Surgical History Surgical History H/O prior ablation treatment (~09/2021) History of delivery History of tonsillectomy Social History Social History Smoking status: Never smoker Alcohol intake: current Drinks per week: 1 Alcohol use details: one or two month Substance use: never Substance use type: does not use Lack of Transportation: No Lack of Food: Never True Current Housing: I Have Housing Concerned About Future Housing: No Difficulty Paying Gas/Electric Bills: No Difficulty Paying for Meds: No Currently Unemployed: No Education: Master's Degree or Higher Difficulty w/ Childcare or Family Care: No Living arrangements: with family Spiritual care concerns: No Anes - Eval Final PreProcedure Day of Procedure 06/18/22 07:48 Patient weight: normal Heart: regular rate and rhythm Lungs: clear to auscultation and normal air movement Airway: Mallampati scale class II Neurological: alert and oriented Last oral intake: >/= 8 hours ASA classification: II Emergent: no Anesthetic plan: proceed Anesthesia type and monitoring: general GIVS and standard monitoring Results Review: All pre-operative results and documents have been reviewed as part of the pre-operative evaluation. Informed Consent: The patient's anesthetic plan and its attendant risks and benefits were discussed with the patient/family/POA. Questions were solicited and answers provided to the satisfaction of the patient/family/POA.
[2022-06-18 09:18] VITALS: BP 129/79; PULSE 66; RESP 16; TEMP 36.1; O2SAT 99; BMI 27.0
[2022-06-18] MEDS: LACTATED RINGERS 1,000 ML 150 ML IV CONT (09:28)
--- NOTE | 2022-06-18 09:36 | PM.HPGS ---
History of Present Illness History of Present Illness Consent: Risks, benefits, and alternatives have been discussed and questions answered. Patient agrees to proceed with procedure. Chief complaint: neoplasm screening Narrative: Kiersten Mix is a 46 year old female who was diagnosed with crohn's when had colonoscopy about 10 years ago, treated with steroids for few months. She is not on any medication, only diet change but last 2 months with intermittent abdominal pain. Omeprazole and carafate did not help Review of Systems Constitutional: Constitutional: Denies headache(s) and Denies weakness Eyes: Eyes: Denies blurry vision ENT: Reports Normal hearing present, Denies headache(s) and Denies neck pain Cardiovascular: Cardiovascular: Denies chest pain and Denies dyspnea Respiratory: Respiratory: Denies dyspnea Gastrointestinal: Gastrointestinal: Reports no additional gastrointestinal complaints Genitourinary: Genitourinary: Denies dysuria Musculoskeletal: Musculoskeletal: Denies neck pain Integumentary/Breasts: Skin/Breast: Denies dry skin Neurologic: Reports Normal hearing present, Denies headache(s) and Denies weakness Psychiatric: Psychiatric: Denies anxiety Endocrine: Endocrine: Denies change in body appearance Hematologic/Lymphatic: Hematologic/Lymphatic: Denies easy bleeding Allergic/Immunologic: Allergic/Immunologic: Denies urticaria PMFSH Past Medical History Medical History (Updated 06/18/22 @ 09:38 by Koby Ojeda MD) Chronic insomnia Colon cancer screening Crohn's disease Labral tear of right hip joint Lower abdominal pain Surgical History Surgical History H/O prior ablation treatment (~09/2021) History of delivery History of tonsillectomy Social History Social History Smoking status: Never smoker Alcohol intake: current Drinks per week: 1 Alcohol use details: one or two month Substance use: never Substance use type: does not use Lack of Transportation: No Lack of Food: Never True Current Housing: I Have Housing Concerned About Future Housing: No Difficulty Paying Gas/Electric Bills: No Difficulty Paying for Meds: No Currently Unemployed: No Education: Master's Degree or Higher Difficulty w/ Childcare or Family Care: No Living arrangements: with family Spiritual care concerns: No Meds Home Medications and Allergies Home Medications Medication Instructions Recorded Confirmed Type lactobacillus comb no.10 20 20,000 mmu cells PO DAILY 02/07/22 06/18/22 History billion cell capsule (Probiotic) multivitamin 1 tablet PO DAILY 02/07/22 06/18/22 History estradiol 0.5 mg tablet 0.5 mg PO DAILY 05/14/22 06/18/22 History omeprazole 40 mg capsule,delayed 40 mg PO DAILY #30 caps 05/29/22 06/18/22 Rx release sucralfate 1 gram tablet 1 g PO BID #90 tabs 05/29/22 06/18/22 Rx Allergies Allergy/AdvReac Type Severity Reaction Status Date / Time erythromycin base AdvReac Nausea Verified 06/18/22 09:22 Exam Const: General: comfortable and no acute distress HENMT: Face/Nose/Sinus: Normal nares present Eyes: General: appearance normal, both eyes and all related structures Neck: Neck: no JVD Resp: Auscultation: clear to auscultation bilaterally Cardio: Rate: regular rate Rhythm: regular rhythm GI: Inspection: non-distended GI Palp: Yes Soft to palpation Skin: General skin exam: normal color Neuro: General: gait normal Speech: normal speech Extrem: General: normal to inspection Psych: Mental Status: mental status grossly normal Assessment and Plan Assessment and plan (1) Lower abdominal pain: Code(s): R10.30 - Lower abdominal pain, unspecified Status: Acute Assessment and Plan: colonoscopy ? crohn's disease may need biopsies based on findings (2) Colon cancer scre
[2022-06-18 10:27] VITALS: BP 107/66; PULSE 77; RESP 24; O2SAT 98
[2022-06-18 10:37] VITALS: BP 104/71; PULSE 72; RESP 20; O2SAT 99
[2022-06-18 10:47] VITALS: BP 115/79; PULSE 64; RESP 22; O2SAT 99
== END 2022-06-18 11:05 | disposition home or self-care (01) ==
PROVIDERS: PCP Family Medicine; Visit Provider Internal Medicine Gastroenterology
PROC: 0DJD8ZZ Inspection of Lower Intestinal Tract, Via Natural or Artificial Opening Endoscopic (ICD-10-PCS; CPT 45378; principal; 2022-06-18 10:30)
DX: Z12.11 Encounter for screening for malignant neoplasm of colon (principal); K56.609 Unspecified intestinal obstruction, unspecified as to partial versus complete obstruction; K52.9 Noninfective gastroenteritis and colitis, unspecified; K64.8 Other hemorrhoids
CPT/HCPCS: 45380; 88305; J2704; J7120

== ENCOUNTER 2022-06-18 11:19 | Outpatient (CLI) | payer BC, SELFPAY ==
[2022-06-18 12:03] LABS: Hematocrit 40.7 % (37.0-47.0); Hemoglobin 12.8 g/dL (12.0-15.0); Mean Corpuscular HGB Conc 31.4 g/dl (32-36); Mean Corpuscular Hemoglobin 27.4 pg (26-34); Mean Platelet Volume 9.4 fl (7.4-10.4); Platelet Count Result 451 k/mm3 (150-375); Red Blood Count 4.68 M/mm3 (4.2-5.4); Red Cell Distribution Width 13.1 % (11.5-14.5); White Blood Count 6.6 K/mm3 (4.5-10.0)
[2022-06-18 12:16] LABS: Rheumatoid Factor < 12.0 IU/ML (<12)
[2022-06-18 12:17] LABS: Alanine Aminotransferase 26 U/L (6-35); Albumin Level 4.3 g/dL (3.5-5.1); Alkaline Phosphatase 135 U/L (38-126); Anion Gap 6 mmol/L (8-16); Aspartate Amino Transferase 21 U/L (14-36); Bilirubin,Total 0.5 mg/dL (0.2-1.3); Blood Urea Nitrogen 7 mg/dL (7-17); CRP 3.6 mg/dL (<1.0); Calcium 8.9 mg/dL (8.4-10.2); Carbon Dioxide 31 mmol/L (22-30); Chloride 102 mmol/L (98-107); Estimated Glomerular Filt Rate > 60; Glucose 92 mg/dL (65-110); Potassium 3.9 mmol/L (3.4-5.0); Sodium 139 mmol/L (137-145)
[2022-06-18 13:58] LABS: Hepatitis B Core IgM Result Negative (Negative)
[2022-06-18 14:11] LABS: Hepatitis B Surface Anti Res Negative
[2022-06-18 14:12] LABS: Hepatitis B Surface Antigen Negative (Negative)
[2022-06-18 14:39] LABS: Erythrocyte Sedimentation Rate 25 mm/hr (0-20)
[2022-06-20 16:49] LABS: NIL 0.03 IU/mL; Quantiferon TB Plus, 1T NEGATIVE (NEGATIVE); TB1-NIL <0.00 IU/mL; TB2-NIL <0.00 IU/mL
== END 2022-06-18 11:20 | disposition home or self-care (01) ==
PROVIDERS: PCP Family Medicine; Visit Provider Internal Medicine Gastroenterology
DX: R10.30 Lower abdominal pain, unspecified (principal); K50.90 Crohn's disease, unspecified, without complications
CPT/HCPCS: 36415; 80053; 85027; 85652; 86140; 86430; 86480; 86705; 86706; 87340

== ENCOUNTER 2022-06-23 07:45 | Outpatient (CLI) | payer BC, SELFPAY ==
--- NOTE | ~2022-06-23 | CT_ITS ---
EXAMINATION: CT abdomen pelvis w con DATE: 06/23/2022 08:11 INDICATION: Low abdominal pain. TECHNIQUE: Computed tomography (CT) of the abdomen and pelvis was performed with 100 mL Omnipaque 350 intravenous contrast. Automated exposure control and iterative reconstruction technique were employe d. The dose-length product was 472.46 mGy-cm. COMPARISON: None. FINDINGS: The visualized portions of the lung bases demonstrate minimal atelectasis. No pleural effus ion. The heart size is normal. No pericardial effusion. The liver demonstrates focal steatosis adjace nt to the fossa ligament. The gallbladder, spleen, pancreas, adrenal glands, and right kidney are nor mal. There is a 9 mm mass of fat in left kidney, consistent with an angiomyolipoma. There is a 5 mm c yst in left kidney. There is an umbilical hernia containing fat. There is wall thickening of the cecu m and 20 cm of terminal ileum. There are fistulas between adjacent loops of ileum and the sigmoid col on and bladder wall. The appendix is not visualized. There is a 14 x 11 mm abscess adjacent to the te rminal ileum. A short segment of the terminal ileum is dilated. There are no pathologically enlarged lymph nodes. There is physiologic fluid in the pelvis. There is mild lumbar spondylosis. IMPRESSION: 1. Crohn disease. Reviewed, dictated and finalized at location A. IMPRESSION: 1. Crohn disease.
== END 2022-06-23 07:46 | disposition home or self-care (01) ==
PROVIDERS: PCP Family Medicine; Visit Provider Internal Medicine Gastroenterology
DX: R10.30 Lower abdominal pain, unspecified (principal); K50.90 Crohn's disease, unspecified, without complications
CPT/HCPCS: 74177; Q9967

== ENCOUNTER 2022-06-24 09:21 | Outpatient (CLI) | payer BC, SELFPAY ==
--- NOTE | 2022-06-29 13:52 | WPDHOMESLEEP ---
Sleep Study - Home Unattended Date of Study: 06/24/22 Ordering Provider: Maria R Norman NP Interpreting Provider: Khushbu Harman MD [facility] Type: Watch PAT Height: 1.6 m Weight: 68.039 kg Body Mass Index: 26.5 Neck Circumference (inches): 13.5 Distant: 8 Reason for Sleep Study Hypersomnia Sleep History Kiersten Duke is a 46-year-old woman with episodes of waking during the middle of the night with her mind racing. She can not get back to sleep for 1-2 hours. This is been going on for longer than 2 years. These episodes occur 2-3 times per week. She has used short term sleep initiating medications which have not helped much. She does not awaken from sleep feeling short of breath. She does not awaken at night with heartburn, belching or coughing. She does not snore and other people do not tell her that she snores. She does not have trouble sleeping with a cold. She does not wake up gasping for breath at night. She rarely sweats excessively at night. She does not notice her heart pounding or beating irregularly at night. She does not fall asleep during the day, does not fall asleep involuntarily or while driving. She does not have loss of muscle tone with strong emotion. She occasionally has problems related to excessive daytime sleepiness. She works as an manager culinary. She does not feel paralyzed on waking or falling asleep. She does not have vivid dreamlike scenes upon awakening or falling asleep. She is not afraid to go to sleep. She does not have nightmares. She rarely remembers her dreams. She constantly has racing thoughts. She does not have feelings of sadness or depression. She frequently feels anxiety. She occasionally has muscular tension. She rarely notices parts of her body jerking. She does not kick at night. She does not have crawling or aching feelings in her legs. She has left-sided sciatic pain which bothers her at night. She does not have morning jaw pain and she does not grind her teeth at night. She occasionally is bothered by pain during the day. She rarely is awakened by pain at night. She rarely wakes up feeling stiff in the morning. She does not wake up with sore achy muscles. She rarely wakes up with pain in the neck and spine. Normal bedtime is 9:00 p.m. falling asleep within an hour and a half. Typically she wakes up 1-2 times during the night. When this happens she will tried 8 return to sleep. Sometimes she listens to a Sleep meditation podcast. Her wake time is 6:00 a.m.. On weekends, bedtime is later, 10:30 p.m. and wake time is 7:00 a.m.. She occasionally takes a nap in the afternoon or evening. A short nap lasting 10 or 15 minutes is not refreshing. She is drowsy in the morning for 2 hours. She feels better in the morning compared to other times of day. she reports a 12 lb weight gain in the last year. She has occasional problems with memory and concentration. Habits: Never smoked tobacco. No caffeine. Alcohol 1 or 2 beverages per month. No recreational substances. [facility] Past Medical History Medical History (Updated 06/29/22 @ 13:57 by Khushbu Harman MD) Chronic insomnia Colon cancer screening Crohn's disease Labral tear of right hip joint Lower abdominal pain Thyroid disease Surgical History Surgical History H/O prior ablation treatment (~09/2021) History of delivery History of tonsillectomy Social History Social History Smoking status: Never smoker Alcohol intake: current Drinks per week: 1 Alcohol use details: one or two month Substance use: never Substance use type: does not use Lack of Transportation: No Lack of Food: Never True Current Housing: I Have Housing Concerned About Future Housing: No Difficulty Paying Gas/Electric Bills: No Difficulty Paying for Meds: No Currently Unemployed: No Education: [employer]
[2022-06-29 16:10] VITALS: BMI 26.5
== END 2022-06-25 13:26 | disposition home or self-care (01) ==
LOC: ANHCSM 09:23
PROVIDERS: PCP Family Medicine; Visit Provider Nurse Practitioner
DX: R53.83 Other fatigue (principal); G47.10 Hypersomnia, unspecified; F51.04 Psychophysiologic insomnia
CPT/HCPCS: 95800

== ENCOUNTER 2022-07-01 07:58 | Outpatient (CLI) | payer BC, SELFPAY ==
--- NOTE | ~2022-07-01 | XR_ITS ---
EXAMINATION: XR small bowel follow through DATE: 07/01/2022 09:32 INDICATION: Low abdominal pain. Crohn disease. TECHNIQUE: Oral contrast was administered, and a time course of radiographs of the abdomen was obtain ed. Fluoroscopy of the small bowel was performed. Fluoroscopy exposure time was 0.4 minutes. The tota l number of images was 13. COMPARISON: CT abdomen and pelvis 06/23/2022 FINDINGS: There is fold thickening and intermittent stricture involving approximately 20 cm of the terminal ile um with fistulas between adjacent segments of ileum and involving the cecum, consistent with Crohn di sease. Transit time from the stomach to proximal colon was approximately 30 minutes. IMPRESSION: 1. Crohn disease. Reviewed, dictated and finalized at location A. IMPRESSION: 1. Crohn disease.
== END 2022-07-01 07:59 | disposition home or self-care (01) ==
PROVIDERS: PCP Family Medicine; Visit Provider Internal Medicine Gastroenterology
DX: R10.30 Lower abdominal pain, unspecified (principal); K50.90 Crohn's disease, unspecified, without complications
CPT/HCPCS: 74250

== ENCOUNTER 2022-09-16 07:38 | Outpatient (CLI) | payer BC, SELFPAY ==
--- NOTE | ~2022-09-16 | CT_ITS ---
CT of the Abdomen and Pelvis: Indication: Crohn's disease, abscess Technique: 2.5 mm axial scans were obtained through the abdomen and pelvis following intravenous adm inistration of 100 cc of Omnipaque 350. Dose reduction technique was used on this scan by utilizing a utomated exposure control and iterative reconstruction technique. The dose-length product (DLP) was 6 10.84 mGy-cm. COMPARISON: 06/23/2022 Findings: Scans through the lung bases are unremarkable. The liver, spleen, pancreas, gallbladder, adrenals and right kidney are within normal limits. Small l eft renal angiomyolipoma noted. No evidence of aortic aneurysm. No lymphadenopathy. There is wall thickening of the distal and terminal ileum, with surrounding inflammatory change, cons istent with history of Crohn's disease. Questionable enterocolonic fistula from distal ileum to sigmo id colon. There is mild distention of the distal ileum just proximal to the areas of wall thickening. No definite abscess identified. Images through the pelvis were performed. Urinary bladder unremarkable. No definite adnexal mass seen . Minimal pelvic ascites present. 3 cm cystic structure in the right lower quadrant probably represen ts an ovarian cyst with any somewhat laterally located right ovary (axial image 125). Impression: Wall thickening and inflammatory change of the distal and terminal ileum, consistent with history of Crohn's disease. No definite abscess. Questionable enterocolonic fistula from distal into sigmoid col on. Mild distention of distal ileum just proximal to the areas of wall thickening. 3 cm right ovarian cysts, as detailed above. Minimal pelvic ascites. Reviewed, dictated and finalized at location . Impression: Wall thickening and inflammatory change of the distal and terminal ileum, consi stent with history of Crohn's disease. No definite abscess. Questionable entero colonic fistula from distal into sigmoid colon. Mild distention of distal ileum just proximal to the areas of wall thickening. 3 cm right ovarian cysts, as detailed above. Minimal pelvic ascites.
== END 2022-09-16 07:39 | disposition home or self-care (01) ==
PROVIDERS: PCP Family Medicine; Visit Provider Nurse Practitioner
DX: K21.9 Gastro-esophageal reflux disease without esophagitis (principal); K50.814 Crohn's disease of both small and large intestine with abscess; R10.33 Periumbilical pain; N83.201 Unspecified ovarian cyst, right side
CPT/HCPCS: 74177; Q9967

== ENCOUNTER 2023-03-27 09:36 | Outpatient (CLI) | payer BC, SELFPAY ==
[2023-03-27 12:13] LABS: Basophils Percent Auto 0.7 % (0.2-1.2); Eosinophils Absolute Auto 0.1 K/mm3 (0-0.3); Hematocrit 43.4 % (37.0-47.0); Hemoglobin 13.8 g/dL (12.0-15.0); Immature Granulocyte Absolute 0.01 K/mm3 (0.00-0.031); Immature Granulocyte Percent A 0.2 % (0-0.5); Lymphocytes Absolute Auto 0.87 K/mm3 (0.9-3.2); Lymphocytes Percent Auto 15.7 % (18.3-44.2); Mean Corpuscular HGB Conc 31.8 g/dl (32-36); Mean Corpuscular Hemoglobin 28.5 pg (26-34); Mean Corpuscular Volume 89.5 fl (80-100); Mean Platelet Volume 10.7 fl (7.4-10.4); Monocytes Absolute Auto 0.5 K/mm3 (0.1-0.6); Monocytes Percent Auto 9.6 % (2.6-8.5); Neutrophils Percent Auto 71.8 % (45.5-73.1); Platelet Count Result 315 k/mm3 (150-375); Red Blood Count 4.85 M/mm3 (4.2-5.4); Red Cell Distribution Width 13.1 % (11.5-14.5); White Blood Count 5.5 K/mm3 (4.5-10.0)
[2023-03-27 12:29] LABS: Alanine Aminotransferase 35 U/L (6-35); Albumin Level 4.6 g/dL (3.5-5.1); Alkaline Phosphatase 82 U/L (38-126); Anion Gap 7 mmol/L (8-16); Aspartate Amino Transferase 62 U/L (14-36); Bilirubin,Total 0.6 mg/dL (0.2-1.3); Blood Urea Nitrogen 17 mg/dL (7-17); Calcium 9.8 mg/dL (8.4-10.2); Carbon Dioxide 32 mmol/L (22-30); Chloride 103 mmol/L (98-107); Cholesterol 179 mg/dL (0-200); Estimated Glomerular Filt Rate > 60; Glucose 92 mg/dL (65-110); HDL Direct 60 mg/dL; Potassium 4.4 mmol/L (3.4-5.0); Sodium 142 mmol/L (137-145); Triglycerides 56 mg/dL (<150)
[2023-03-27 12:47] LABS: LDL Cholesterol Direct 88 mg/dL
[2023-03-27 12:52] LABS: Hemoglobin A1C 5.8 % (<5.7)
[2023-03-27 13:44] LABS: Vitamin D 25 Hydroxy 58.9 ng/mL
== END 2023-03-27 09:37 | disposition home or self-care (01) ==
LOC: ANHGOSHLAB 09:37
PROVIDERS: PCP Nurse Practitioner Family; Visit Provider Nurse Practitioner Family
DX: K50.80 Crohn's disease of both small and large intestine without complications (principal); R53.83 Other fatigue; Z00.00 Encounter for general adult medical examination without abnormal findings; Z13.29 Encounter for screening for other suspected endocrine disorder; E55.9 Vitamin D deficiency, unspecified; E53.8 Deficiency of other specified B group vitamins; E78.5 Hyperlipidemia, unspecified; R73.03 Prediabetes
CPT/HCPCS: 36415; 80053; 80061; 82306; 82607; 83036; 84443; 85025

== ENCOUNTER 2023-05-06 08:34 | Outpatient (CLI) | payer BC, SELFPAY ==
[2023-05-06 15:29] LABS: Thyroid Stimulating Hormone Reflex 0.816 uIU/mL (0.465-4.68)
== END 2023-05-06 08:35 | disposition home or self-care (01) ==
LOC: ANHGOSHLAB 08:35
PROVIDERS: PCP Nurse Practitioner Family; Visit Provider Nurse Practitioner Family
DX: E06.3 Autoimmune thyroiditis (principal)
CPT/HCPCS: 36415; 84443

== ENCOUNTER 2023-05-08 09:50 | Outpatient (CLI) | payer BC, SELFPAY ==
--- NOTE | ~2023-05-08 | CT_ITS ---
CT of the Abdomen and Pelvis: Indication: Suprapubic pulling sensation Technique: 2.5 mm axial scans were obtained through the abdomen and pelvis following intravenous adm inistration of 100 cc of Omnipaque 350. Dose reduction technique was used on this scan by utilizing a utomated exposure control and iterative reconstruction technique. The dose-length product (DLP) was 5 28.03 mGy-cm. COMPARISON: 09/16/2022 Findings: Scans through the lung bases are unremarkable. The liver, spleen, pancreas, gallbladder, adrenals and kidneys are within normal limits. No evidence of aortic aneurysm. No lymphadenopathy. Probable mild wall thickening of several distal ileal loops, which appears improved from prior exam. No bowel obstruction evident. No abscess evident. Images through the pelvis were performed. Urinary bladder unremarkable. There is a stable cystic mass in the right lower quadrant, measuring 2.7 cm in diameter. No ascites. Stable mild infiltrative warren ges in the pelvic fat planes, nonspecific. Impression: Mild wall thickening of several distal ileal small bowel loops, which appears improved from prior exa m. Stable mild infiltrative changes in pelvic fat planes. Findings are presumably related to history of Crohn's disease. No bowel obstruction or abscess evident. Stable 2.7 cm right lower quadrant cystic mass, possibly adnexal cyst. Reviewed, dictated and finalized at location M. Impression: Mild wall thickening of several distal ileal small bowel loops, which appears i mproved from prior exam. Stable mild infiltrative changes in pelvic fat planes. Findings are presumably related to history of Crohn's disease. No bowel obstru ction or abscess evident. Stable 2.7 cm right lower quadrant cystic mass, possibly adnexal cyst.
== END 2023-05-08 09:51 | disposition home or self-care (01) ==
PROVIDERS: PCP Nurse Practitioner Family; Visit Provider Nurse Practitioner
DX: R10.2 Pelvic and perineal pain (principal); K50.814 Crohn's disease of both small and large intestine with abscess
CPT/HCPCS: 74177; Q9967

== ENCOUNTER 2023-05-20 14:39 | Outpatient (CLI) | payer BC, SELFPAY ==
[2023-05-20 22:07] LABS: T4 Thyroxine 9.71 ug/dL (5.53-11.0)
[2023-05-20 22:23] LABS: Thyroid Stimulating Hormone Reflex 0.858 uIU/mL (0.465-4.68)
[2023-05-23 02:46] LABS: Thyroid Peroxidase Antibodies 46 IU/mL (<9)
[2023-05-24 06:58] LABS: Insulin Level Total 22.7 uIU/mL (<=18.4)
[2023-05-24 12:05] LABS: Testosterone Total 14 ng/dL (2-45)
[2023-05-27 21:54] LABS: Free Insulin 19.8 uIU/mL (1.5-14.9)
== END 2023-05-20 14:40 | disposition home or self-care (01) ==
LOC: ANHGOSHLAB 14:40
PROVIDERS: PCP Family Medicine; Visit Provider Nurse Practitioner Family
DX: E06.3 Autoimmune thyroiditis (principal); R53.83 Other fatigue; R63.5 Abnormal weight gain
CPT/HCPCS: 36415; 83525; 83527; 84403; 84436; 84443; 86376

== ENCOUNTER 2023-10-09 14:59 | Outpatient (CLI) | payer BC, SELFPAY ==
[2023-10-09 18:56] LABS: Hematocrit 40.1 % (37.0-47.0); Hemoglobin 12.6 g/dL (12.0-15.0); Mean Corpuscular HGB Conc 31.4 g/dl (32-36); Mean Corpuscular Hemoglobin 28.9 pg (26-34); Mean Platelet Volume 10.5 fl (7.4-10.4); Platelet Count Result 323 k/mm3 (150-375); Red Blood Count 4.36 M/mm3 (4.2-5.4); Red Cell Distribution Width 12.4 % (11.5-14.5); White Blood Count 7.2 K/mm3 (4.5-10.0)
[2023-10-09 19:06] LABS: Alanine Aminotransferase 19 U/L (6-35); Albumin Level 4.2 g/dL (3.5-5.1); Alkaline Phosphatase 66 U/L (38-126); Anion Gap 7 mmol/L (4-12); Aspartate Amino Transferase 56 U/L (14-36); Bilirubin,Total 0.5 mg/dL (0.2-1.3); Blood Urea Nitrogen 11 mg/dL (7-17); CRP < 0.5 mg/dL (<1.0); Calcium 9.4 mg/dL (8.4-10.2); Carbon Dioxide 31 mmol/L (22-30); Chloride 99 mmol/L (98-107); Estimated Glomerular Filt Rate > 60; Glucose 109 mg/dL (65-110); Sodium 137 mmol/L (137-145)
[2023-10-09 19:50] LABS: Erythrocyte Sedimentation Rate 12 mm/hr (0-20)
== END 2023-10-09 15:00 | disposition home or self-care (01) ==
LOC: ANHGOSHLAB 15:00
PROVIDERS: PCP Family Medicine; Visit Provider Nurse Practitioner
DX: K50.814 Crohn's disease of both small and large intestine with abscess (principal)
CPT/HCPCS: 36415; 80053; 85027; 85652; 86140

== ENCOUNTER 2024-02-29 08:14 | Outpatient (CLI) | payer BC, SELFPAY ==
[2024-02-29 14:41] LABS: Alanine Aminotransferase 19 U/L (6-35); Albumin Level 4.1 g/dL (3.5-5.1); Alkaline Phosphatase 63 U/L (38-126); Anion Gap 4 mmol/L (4-12); Aspartate Amino Transferase 35 U/L (14-36); Bilirubin,Total 0.6 mg/dL (0.2-1.3); Blood Urea Nitrogen 11 mg/dL (7-17); Calcium 9.5 mg/dL (8.4-10.2); Carbon Dioxide 31 mmol/L (22-30); Chloride 104 mmol/L (98-107); Cholesterol 216 mg/dL (0-200); Estimated Glomerular Filt Rate > 60; Glucose 64 mg/dL (65-110); HDL Direct 65 mg/dL; Potassium 5.1 mmol/L (3.4-5.0); Sodium 139 mmol/L (137-145); Triglycerides 118 mg/dL (<150)
[2024-02-29 14:52] LABS: Free T4 Free Thyroxine 1.27 ng/dL (0.78-2.19); LDL Cholesterol Direct 109 mg/dL
[2024-03-02 08:37] LABS: Thyroid Peroxidase Antibodies 43 IU/mL (<9)
== END 2024-02-29 08:15 | disposition home or self-care (01) ==
LOC: ANHGOSHLAB 08:15
PROVIDERS: PCP Family Medicine; Visit Provider Nurse Practitioner Family
DX: E06.3 Autoimmune thyroiditis (principal); Z79.899 Other long term (current) drug therapy; Z13.220 Encounter for screening for lipoid disorders; E55.9 Vitamin D deficiency, unspecified
CPT/HCPCS: 36415; 80053; 80061; 82306; 84439; 84443; 86376

== ENCOUNTER 2024-05-23 15:33 | Outpatient (CLI) | payer BC, SELFPAY ==
--- OUTSIDE RECORDS SUMMARY | 2024-05-23 17:34 | XMS_ITS | Clinical Summary ---
Author Organization [facility] Address [address] [place] [address] Phone Care Team Providers Care Conche Operator Name Role Phone SERAFIN BOLANOS, ZHANNA Ewing Unavailable [phone] EVERETTE WINTER MD Primary Care Provider [phone] Reason for Visit and Chief Complaint ANNUAL CERTIFIED SCRUB TECH EXAM Problems Includes: Problems addressed during this encounter and other active Problems All Visits Onset Date Resolved Date Provider Condition S tatus Dysmenorrhea 02/02/2017 ZHANNA BETANCOURT MD Activ e Last Documented On 02/02/2017 8:51AM ; [facility] Note: 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 ZHANNA BETANCOURT MD Active Last Documented On 3 7:56AM ; [facility] PAP SMEAR CERVIX W LGSIL 05/20/2012 ZHANNA PAEZ MD Active Last Documented On 3 7:56AM ; [facility] Plan of Treatment No Plan of Treatment Recorded Assessments Includes: Assessments from this encounter No Assessments Recorded Medical Equipment - Implanted Devices Includes: Current Devices No Medical Equipment Recorded Medications Includes: Medications discussed during this encounter and other current Medications Current Medications (continue as prescribed) Lunesta 3MG Oral Tablet 02/02/2017 Provider: Diagnosis: Last Documented On 7 8:06AM By PATIENCE HUDSON ; [facility] Daily Multiple Plus Iron Tablet 05/25/2015 Provi simran: Diagnosis: Last Documented On 6 8:28AM By PATIENCE HUDSON ; [facility] SM Fish Oil 1000 MG Capsule, conventional 05/25/2015 Provider: Diagnosis: qid Last Documented On 6 8:28AM By PATIENCE HUDSON ; [facility] Vitamin C 500 MG Tablet 05/25/2015 Provider: Diagnosis: Last Documented On 6 8:29AM By PATIENCE HUDSON ; [facility] Tylenol 325 MG Tablet 05/25/2015 Provider: Diagnosis: as needed Last Documented On 6 8:30AM By PATIENCE HUDSON ; [facility] Daily Value Multivitamin OR TABS 03/25/2012 Provider : Diagnosis: 1QD Last Documented On 03/25/2012 8:10AM By CLAYTON CARTER LPN ; [facility] Medications Administered Includes: Administered Medications from this encounter No Administered Medications Recorded Results Includes: Results discussed during this encounter No Results Recorded For Specified Dates History of Present Illness Includes: History of Present Illness from this encounter No History of Present Illness Recorded Social History No Social History Recorded - Smoking Status Unknown Medical History Includes: Medical History addressed during this encounter No Medical History Recorded Family History Includes: Family History addressed during this encounter No Family History Recorded Review of Systems Includes: Review of Systems from this encounter No Review of Systems Recorded Mental Status Includes: Mental Status from this encounter No Mental Status Recorded Functional Status Includes: Functional Status from this encounter No Functional Status Recorded Physical Exam Includes: Physical Exam from this encounter No Physical Exam Recorded Allergies Includes: Active Allergies Substance Type Reaction Onset Date Resolved Date Statu s Tomatoes Allergy 05/25/2015 Active Last Documented On 9 3:46PM ; [facility] Peppers Allergy 05/25/2015 Active Last Documented On 9 3:46PM ; [facility] Insurance Includes: Active Insurance Policies Plan Name Member ID Group # Subscriber Relationship Effect jimmie Dates 1 - [facility] [id number] MARCOS ROSSI Clinical Notes Includes: Clinical Notes from this encounter No Clinical Notes Recorded
--- OUTSIDE RECORDS SUMMARY | 2024-05-23 17:34 | XMS_ITS | Clinical Summary ---
Author Organization [facility] Address [address] [place] [address] Phone Care Team Providers Care Ep Tech Name Role Phone Unavailable Primary Care Provider Unavailabl e Medications azithromycin (ZITHROMAX) 250 mg tablet TAKE 2 TABLETS BY MOUTH A SINGLE DOSE ON DAY 1, THEN TAKE 1 TABLET ONCE DAILY ON DAYS 2 THRU 5. 6 Tablet 07/24/2023 11:23 AM CDT 4 Active semaglutide, weight loss, (Wegovy) 2.4 mg/0.75 mL Pen Injector Inject 0.75 mL (2.4 mg) by subcutaneous injection every 7 days. 3 mL 4 02/11/2024 12:13 PM DEVELOPMENT TEAM LEAD 4 Active FLUoxetine (PROzac) 20 mg capsule Take 1 Capsule (20 mg) by mouth daily. 90 Capsule 02/26/2024 7:41 PM DEVELOPMENT TEAM LEAD 5 Active omeprazole (PriLOSEC) 20 mg Capsule, Delayed Release(E.C.) Take 1 Capsule (20 mg) by mouth daily. 90 Capsule 02/26/2024 7:41 PM DEVELOPMENT TEAM LEAD 5 Active tirzepatide (Mounjaro) 2.5 mg/0.5 mL Pen Injector Inject 0.5 mL (2.5 mg) by subcutaneous injection every 7 days. 2 mL 5 Active traZODone (DESYREL) 50 mg tablet Take 1 Tablet (50 mg) by mouth nightly as needed for sleep. 90 Tablet 1 03/31/2024 3:13 PM DEVELOPMENT TEAM LEAD 5 Active predniSONE (DELTASONE) 5 mg tablet Take 8 tablets by mouth daily for 7 days, decreasing by 1 tablet every 7 days. (8 tablets, then 7, 6, 5, 4, 3, 2, 1) 252 Tablet 04/20/2024 7:25 PM DEVELOPMENT TEAM LEAD Active Encounters Date Type Department Care Team Description 05/04/2024 External Device Data [facility] Provider, Abstract 04/26/2024 External Device Data [facility] Provider, Abstract 04/26/2024 External Device Data [facility] Provider, Abstract 04/23/2024 External Device Data [facility] Provider, Abstract 04/22/2024 External Device Data [facility] Provider, Abstract 04/19/2024 External Device Data [facility] Provider, Abstract 04/05/2024 External Device Data [facility] Provider, Abstract 03/09/2024 External Device Data [facility] Provider, Abstract 03/08/2024 External Device Data [facility] Provider, Abstract 03/01/2024 External Device Data [facility] Provider, Abstract from Last 3 Months Social History Tobacco Use Types Packs/Day Years Used Date Smoking Tobacco: Never Assessed Comments Unknown Sex and Gender Information Value Date Recorded Sex Assigned at Not on file Legal Sex Female 12:14 PM CDT Gender Identity Not on file Sexual Orientation Not on file Plan of Treatment Health Maintenance Due Date Last Done Comments DTAP/TDAP/TD VACCINES (1 - Tdap) 1992 HEPATITIS B VACCINES (1 of 3 - 19+ 3-dose series) 04/1992 HPV/Cotest (21-29) 1994 PAP SMEAR 1994 CERVICAL CANCER SCREENING 09/19/2003 HPV/Cotest (30-65) 09/19/2003 PAP SMEAR 09/19/2003 BREAST CANCER SCREENING 2013 COLORECTAL SCREENING 2018 Colorectal Cancer Screening 2018 FIT-DNA Q 3 years 2018 FIT/FOBT Q 1 year 2018 Flex Sig/CT Colonography Q 5 years 2018 INFLUENZA VACCINE (#1) 2023 ZOSTER VACCINE (1 of 2) 09/19/2023 Insurance RX [facility]
--- OUTSIDE RECORDS SUMMARY | 2024-05-23 17:34 | XMS_ITS ---
Care Plan - [facility] Created on: May 23, 2024 KATE ROSSI : 1975 Sex: Female Author Organization [facility] Address [address] [place] [address] Phone Care Team Providers Care Director Hematology Name Role Phone SERAFIN BOLANOS, ZHANNA Ewing Unavailable [phone] MAGGY BOLANOS, EVERETTE Sutherland Primary Care Provider [phone]
--- OUTSIDE RECORDS SUMMARY | 2024-05-23 17:34 | XMS_ITS | Clinical Summary ---
Author Organization [facility] Address [address] [place] [address] Phone Care Team Providers Care Wash Oil Pump Operator Name Role Phone SERAFIN BOLANOS, ZHANNA Ewing Unavailable [phone] EVERETTE WINTER MD Primary Care Provider [phone] Reason for Visit and Chief Complaint The Chief Complaint is: Repap Problems Includes: Problems addressed during this encounter and other active Problems All Visits Onset Date Resolved Date Provider Condition S tatus Dysmenorrhea 02/02/2017 ZHANNA BETANCOURT MD Activ e Last Documented On 02/02/2017 8:51AM ; [facility] Note: 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 ZHANNA BETANCOURT MD Active Last Documented On 3 7:56AM ; [facility] PAP SMEAR CERVIX W LGSIL 05/20/2012 ZHANNA PAEZ MD Active Last Documented On 3 7:56AM ; [facility] Plan of Treatment No Plan of Treatment Recorded Assessments Includes: Assessments from this encounter Findings - Cervical Pap smear was satisfactory but lacked endocervical / transformation zone - Last Documented On 05/10/2018 4:28PM ; [facility] Medical Equipment - Implanted Devices Includes: Current Devices No Medical Equipment Recorded Medications Includes: Medications discussed during this encounter and other current Medications Current Medications (continue as prescribed) Lunesta 3MG Oral Tablet 02/02/2017 Provider: Diagnosis: Last Documented On 7 8:06AM By PATIENCE HUDSON ; [facility] Daily Multiple Plus Iron Tablet 05/25/2015 Provi simran: Diagnosis: Last Documented On 6 8:28AM By PATIENCE HUDSON ; [facility] SM Fish Oil 1000 MG Capsule, conventional 05/25/2015 Provider: Diagnosis: qid Last Documented On 6 8:28AM By PATIENCE HUDSON ; [facility] Vitamin C 500 MG Tablet 05/25/2015 Provider: Diagnosis: Last Documented On 6 8:29AM By PATIENCE HUDSON ; [facility] Tylenol 325 MG Tablet 05/25/2015 Provider: Diagnosis: as needed Last Documented On 6 8:30AM By PATIENCE HUDSON ; [facility] Daily Value Multivitamin OR TABS 03/25/2012 Provider : Diagnosis: 1QD Last Documented On 03/25/2012 8:10AM By CLAYTON CARTER LPN ; [facility] Medications Administered Includes: Administered Medications from this encounter No Administered Medications Recorded Vital Signs Includes: Vital Signs from this encounter Vital Name 05/10/2018 03:45P Blood Pressure Sitting (mmHg) 112/60 Height (in) 62.5 Weight (lb) 137 Body Mass Index (kg/m2) 24.7 Body Surface Area (m2) 1.6 Last Documented: On 05/10/2018 3:46PM ; [facility] Results Includes: Results discussed during this encounter No Results Recorded For Specified Dates History of Present Illness Includes: History of Present Illness from this encounter MICHELLE MIX is a 42 year old female. Discussed that pap was normal except for no endocervical cells present. There was HR HPV present. She previously had abn'l pap in 2012 and had colp with bx showing MICH I and it resolved on its own. Options for management are discussed and pt expresses understanding and wants to repeat at this time. Social History Description Last Updated Alcohol use socially, maybe once a month 02/02/2017 Last Documented On 9 3:41PM ; [facility] Marital history 02/02/2017 Last Documented On 9 3:41PM ; [facility] Sexually active with 1 partners in the l ast year 1 05/25/2015 Last Documented On 9 3:41PM ; [facility] Sexually active 12/07/2012 Last Documented On 9 3:41PM ; [facility] Non-smoker 04/14/2012 Last Documented On 9 3:41PM ; [facility] Smoking Status Unknown Procedures and Surgical History Surgical History Last Updated Previous colposcopy 3 with MICH I in the biopsy and the ECC negative 02/02/2017 Last Documented On 9 3:41PM ; [facility] Surgical / procedural histor y incisional hernia w/endometrosis 11-09-[address] Gomez at [facility] (no mesh used) 03/28/2013 Last Documented On 9 3:41PM ; [facility] Medical History Includes: Medical History addressed during this encounter Description Last Updated LMP: 04/26/2018 05/10/2018 Last Documented On 9 4:28PM ; [facility] Last mammogram date: 04/10/2018 9 Last Documented On 9 4:28PM ; [facility] Last pap smear date 03/23/2018 05/10/2018 Last Documented On 9 4:28PM ; [facility] Result: normal 02/02/2017 Last Documented On 9 3:41PM ; [facility] section x 3 05/25/2015 Last Documented On 9 3:41PM ; [facility] Sexually active 05/25/2015 Last Documented On 9 3:41PM ; [facility] A colonoscopy was performed 2009 016 Last Documented On 9 3:41PM ; [facility] History of a screening mammogram was per formed 201003/29/2014 Last Documented On 9 3:41PM ; [facility] Crohn's disease -- dx'd in 2008 ---manag es with diet 03/25/2012 Last Documented On 9 3:41PM ; [facility] Result: normal 03/25/2012 Last Documented On 9 3:41PM ; [facility] Partner with vasectomy 03/25/2012 Last Documented On 9 3:41PM ; [facility] IUD Mirena IUD placed april 2011 and it fell out 6 weeks later ([facility]) 03/25/2012 Last Documented On 9 3:41PM ; [facility] Aborta 1 03/25/2012 Last Documented On 9 3:41PM ; [facility] 4 03/25/2012 Last Documented On 9 3:41PM ; [facility] Para 3 03/25/2012 Last Documented On 9 3:41PM ; [facility] Family History Includes: Family History addressed during this encounter Description Last Updated Maternal history of diabetes mellitus mo m 05/25/2015 Last Documented On 9 3:41PM ; [facility] Maternal history of hypertension mom 09/2015 Last Documented On 9 3:41PM ; [facility] Spouse name: Marcos Mix 12/07/2012 Last Documented On 9 3:41PM ; [facility] Family history of diabetes mellitus mom 12/07/2012 Last Documented On 9 3:41PM ; [facility] Family history of hypertension mom 12/07 Last Documented On 9 3:41PM ; [facility] Family history of cancer negative for br east, uterine, ovarian, colon 03/25/2012 Last Documented On 9 3:41PM ; [facility] Review of Systems Includes: Review of Systems from this encounter No Review of Systems Recorded Mental Status Includes: Mental Status from this encounter No Mental Status Recorded Functional Status Includes: Functional Status from this encounter No Functional Status Recorded Physical Exam Includes: Physical Exam from this encounter Allergies Includes: Active Allergies Substance Type Reaction Onset Date Resolved Date Statu s Tomatoes Allergy 05/25/2015 Active Last Documented On 9 3:46PM ; [facility] Peppers Allergy 05/25/2015 Active Last Documented On 9 3:46PM ; [facility] Encounters Encounter Provider Location Date Check-In Time Check-Out Time Diagnosis RE-PAP ZHANNA BETANCOURT MD [facility] [employer]PERVIS[employer] 05/11/19 19 3:36PM 4:16PM Cerv Pap Smear Satisfactory But Lacking Endocerv / Transformation Zone Insurance Includes: Active Insurance Policies Plan Name Member ID Group # Subscriber Relationship Effect jimmie Dates 1 - [facility] [id number] MARCOS MIX Clinical Notes Includes: Clinical Notes from this encounter No Clinical Notes Recorded
--- OUTSIDE RECORDS SUMMARY | 2024-05-23 17:34 | XMS_ITS | Clinical Summary ---
Author Organization [facility] Address [address] [place] [address] Care Team Providers Care Restaurant Worker Name Role Phone Pawel Montoya MD Unavailable Source Comments [facility],non-owned Affiliates and Associated Physician Practices is amultiple site organization consisting of ambulatory clinics and hospital sitesin [place], [place], [place] and [place]. This disclosure is being madepursuant to the Care Everywhere program and may not contain all information available regarding this patient. Last updated 17.[facility] Allergies Active Allergy Reactions Criticality Noted Date Comments Erythromycin GI Discomfort Low 03/31/2011 GI distress Medications * Be aware that medications may not be up to date on this document. Alwaysverify current medications with the patient. Medication Sig Dispensed Refills Start Date End Date Status melatonin 3 MG tablet Take 1 Tab by mouth at bedtime. 30 Tab 1 04/12/2013 Active multivitamin daily (THERAGRAN) tablet Take 1 Tab by mouth daily with food. Active piroxicam (FELDENE) 20 MG capsuleIndications:Sc iatica of left side,Right foot pain Take 1 Cap by mouth daily with dinner. 30 Cap 0 10/19/2013 Active zolpidem (AMBIEN) 5 MG tablet Take 1 Tab by mouth nightly as needed. INSOMNIA 30 Tab 0 05/11/2014 Active mupirocin (BACTROBAN) 2 % ointmentIndications:I mpetigo Apply to affected area 3 times daily 22 g 07/21/2017 Active Active Problems Problem Noted Date Diagnosed Date Annual physical exam 10/19/2013 Sciatica of left side 10/19/2013 Right foot pain 10/19/2013 Irregular periods/menstrual cycles 10/19/2013 Overview (10/19/2013): Varying between 23-30 days. Sore throat 06/08/2013 Submandibular lymphadenopathy 06/08/2013 Insomnia 04/12/2013 Mood disorder 03/31/2011 Crohn's disease 03/31/2011 Immunizations Name Administration Dates Next Due TDAP (7yrs+) 08/31/2012 Family History Medical History Relation Name Comments Hypertension Father Diabetes Maternal Grandmother Diabetes Mother Hypercholesterolemia Mother Hypertension Mother Cancer Paternal Grandfather Lung ca ncer Relation Name Status Comments Father Alive obese Maternal Grandmother Mother Alive DM Paternal Grandfather Social History Tobacco Use Types Packs/Day Years Used Date Smoking Tobacco: Never Smokeless Tobacco: Never Alcohol Use Standard Drinks/Week Comments Yes 0.8 (1 standard drink = 0.6 oz p ure alcohol) rare alcohol intake Sex and Gender Information Value Date Recorded Sex Assigned at Not on file Gender Identity Not on file Sexual Orientation Not on file Last Filed Vital Signs Vital Sign Reading Time Taken Comments Blood Pressure 106/72 07/21/2017 2:19 PM CDT Pulse 78 07/21/2017 2:19 PM CDT Temperature 37.4 C (99.3 F) 07/21/2017 2:19 PM CDT Respiratory Rate 16 10/19/2013 9:13 AM CDT Oxygen Saturation 99% 11/09/2012 11:30 AM CDT Inhaled Oxygen Concentration - - Weight 59 kg (130 lb) 07/21/2017 2:19 PM CDT Height 160 cm (5' 3 ) 07/21/2017 2:19 PM CDT Body Mass Index 23.03 07/21/2017 2:19 PM CDT Plan of Treatment Health Maintenance Due Date Last Done Comments COLOGUARD (AGES 45-75) - COL ON CA SCREENING 1973 COLON MONITORING 1973 COLONOSCOPY - COLON CA SCREENING 1973 CT COLONOGRAPHY - COLON CA SCREENING 1973 Colorectal Cancer Screening 1973 FIT - COLON CA SCREENING 1973 FLEX SIG - COLON CA SCREENING 1973 HIV SCREENING 1988 HEPATITIS C SCREENING 09/14/1991 HEPATITIS B VACCINE (1 of 3 - 19+ 3-dose series) 1992 PAP SMEAR 09/17/2011 09/16/2010, 09/16/2010 MAMMOGRAM 04/07/2012 04/07/2011 LIPID TESTING 10/19/2018 10/19/2013 DTAP/TDAP/TD VACCINES (2 - T d or Tdap) 08/31/2022 08/31/2012 PNEUMOCOCCAL VACCINE 50+ (1 of 1 - PCV) 09/19/2023 ZOSTER VACCINE (1 of 2) 09/19/2023 COVID-19 VACCINE (1 - 2023-2 5 season) 2023 DEPRESSION SCREENING 02/17/2024 INFLUENZA VACCINE (Season Ended) 2024 HIB VACCINE Aged Out No longer eligi ble based on patient's age to complete this topic HPV VACCINE Aged Out No longer eligi ble based on patient's age to complete this topic MENINGOCOCCAL (Group B) VACCINE SHARED DECISION-MAKING Aged Out No longer eligible based on patient's age to complete this topic MENINGOCOCCAL GROUPS A/C/Y/W VACCINE Aged Out No longer eligible b ased on patient's age to complete this topic PNEUMOCOCCAL VACCINE Aged Out No long er eligible based on patient's age to complete this topic Procedures Procedure Name Priority Date/Time Associated Diagnosis Comments LIPID PROFILE W TCHOL/HDL Routine 10/19/2013 10:16 AM CDT Annual physical exam MAMMO BILAT SCREENING Routine 04/07/2011 2:02 PM PHYSIOGNOMIST Screening for breast cancer from Last 3 Months or Most Recently Relevant to Health Maintenance Results * LIPID PROFILE W TCHOL/HDL (PO REF LAB) (10/19/2013 10:16 AM CDT) Cholesterol 157 100 - 199 mg/dL [facility] ACCOUNT BILL Triglycerides 52 0 - 149 mg/dL [facility] ACCOUNT BILL HDL Cholesterol 57 >39 mg/dL [facility] ACCOUNT BILL Comment: According to ATP-III Guidelines, HDL-C >59 mg/dL is considered a negative risk factor for CHD. VLDL Calculated 10 5 - 40 mg/dL [facility] ACCOUNT BILL LDL Calculated 90 0 - 99 mg/dL [facility] ACCOUNT BILL Comment NOT NEEDED [facility] ACCOUNT BILL Comment:Ancillary determined the test is not needed Cholesterol/HDL Ratio 2.8 0.0 - 4.4 ratio units [facility] ACCOUNT BILL BLOOD SPECIMEN / Unknown 10/19/2013 10:16 AM CDT 10/19/2013 12:41 PM CDT Narrative Resulting Agency Comment [facility] [place] [id number] [facility] [id number] Tommy Marr DO LAB - CHEMISTRY ORD ERABLES [facility] ACCOUNT BILL * MAMMO SCREENING DIGITAL IMAGE BILAT (04/07/2011 2:02 PM PHYSIOGNOMIST) Anatomical Region Laterality Modality Breast Bilateral Mammography 04/07/2011 2:24 PM PHYSIOGNOMIST Narrative 04/07/2011 2:53 PM PHYSIOGNOMIST DIGITAL BILATERAL SCREENING MAMMOGRAMS WITH CAD CORRELATION DATE: 04/07/2011 PERTINENT HISTORY: Routine screening. Baseline TECHNIQUE: Bilateral craniocaudad (CC) and mediolateral oblique (MLO) views. These images were interpreted with the aid of the iCAD Second Look. TECHNOLOGIST: RT Magen(R)(M). TISSUE DENSITY: Dense, which lowers the sensitivity of mammography. FINDINGS: No discrete abnormality. ASSESSMENT: Negative, BIRADS 1. RECOMMENDATIONS: Routine follow-up per national guidelines. The above findings should be correlated with physical examination. A relatively nonspecific study should not preclude additional evaluation if suspicious findings are present clinically. An [employer]ified Facility Procedure Note Rober Muñoz MD - 04/07/2011 DIGITAL BILATERAL SCREENING MAMMOGRAMS WITH CAD CORRELATION DATE: 04/07/2011 PERTINENT HISTORY: Routine screening. Baseline TECHNIQUE: Bilateral craniocaudad (CC) and mediolateral oblique (MLO) views. These images were interpreted with the aid of the iCAD Second Look. TECHNOLOGIST: RT Magen(R)(M). TISSUE DENSITY: Dense, which lowers the sensitivity of mammography. FINDINGS: No discrete abnormality. ASSESSMENT: Negative, BIRADS 1. RECOMMENDATIONS: Routine follow-up per national guidelines. The above findings should be correlated with physical examination. A relatively nonspecific study should not preclude additional evaluation if suspicious findings are present clinically. An [employer] [facility] Matthew Adrian DO MAMMO ORDERABLES from Last 3 Months or Most Recently Relevant to Health Maintenance Care Teams Restaurant Worker Relationship Specialty Start Date End Date Pawel Montoya MD [address] [facility] [address] [id number] Obstetrics and Gynecology 10/19/13
--- OUTSIDE RECORDS SUMMARY | 2024-05-23 17:34 | XMS_ITS ---
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 ZHANNA BETANCOURT MD Active Last Documented On 3 7:56AM ; [facility] PAP SMEAR CERVIX W LGSIL 05/20/2012 ZHANNA PAEZ MD Active Last Documented On 3 7:56AM ; [facility] Plan of Treatment Findings Encounter Date She will let us know if she has other problems in the meantime ANNUAL SOFT IRON INSPECTOR EXAM with ZHANNA BETANCOURT MD 03/23/2018 Last Documented On 9 8:29AM ; [facility] Ordered follow-up visit 1 ye ar or as needed ANNUAL SOFT IRON INSPECTOR EXAM with ZHANNA BETANCOURT MD 03/23/2018 Last Documented On 9 8:29AM ; [facility] She will let us know if she has other problems in the mean time MANAGER DOCUMENT CONTROL EXAM with ZHANNA BETANCOURT MD 02/02/2017 Last Documented On 7 8:52AM ; [facility] Follow-up for re-examination for 3 months with a BP check and on OCP's MANAGER DOCUMENT CONTROL EXAM with ZHANNA BETANCOURT MD 02/02/2017 Last Documented On 7 8:52AM ; [facility] Ordered follow-up visit 1 ye ar or as needed MANAGER DOCUMENT CONTROL EXAM with ZHANNA BETANCOURT MD 02/02/2017 Last Documented On 7 8:52AM ; [facility] Ordered patient to call if paz gatica develops MANAGER DOCUMENT CONTROL EXAM with ZHANNA BETANCOURT MD 02/02/2017 Last Documented On 7 8:52AM ; [facility] She will keep a menstrual diary MANAGER DOCUMENT CONTROL EXAM with KIARA BETANCOURT MD 02/02/2017 Last Documented On 7 8:52AM ; [facility] She will let us know if she has other problems in the meantime ANNUAL SOFT IRON INSPECTOR EXAM with ZHANNA BETANCOURT MD 05/25/2015 Last Documented On 6 8:51AM ; [facility] Ordered follow-up visit 1 ye ar or as needed ANNUAL SOFT IRON INSPECTOR EXAM with ZHANNA BETANCOURT MD 05/25/2015 Last Documented On 6 8:51AM ; [facility] She will let us know if she has other problems in the meantime MANAGER DOCUMENT CONTROL EXAM with ZHANNA BETANCOURT MD 03/29/2014 Last Documented On 5 4:25PM ; [facility] Ordered follow-up visit 1 ye ar or as needed MANAGER DOCUMENT CONTROL EXAM with ZHANNA BETANCOURT MD 03/29/2014 Last Documented On 5 4:25PM ; [facility] Instructions to patient Instructions for patient : B reast Self Exam discussed Last Documented On 9 8:14AM ; [facility] Instructions for patient : B reast Self Exam discussed Last Documented On 7 8:20AM ; [facility] Instructions for patient : B reast Self Exam discussed Last Documented On 6 8:35AM ; [facility] Instructions for patient : B reast Self Exam discussed Last Documented On 5 4:03PM ; [facility] Instructions for patient : B reast Self Exam discussed and technique reviewed Last Documented On 4 3:07PM ; [facility] Instructions for patient : B reast Self Exam discussed and technique reviewed Last Documented On 3 8:23AM ; [facility] Education and Decision Aids were provided during visit for: STD screening offered and de clined Last Documented On 9 8:14AM ; [facility] Bone Mineral Density Screeni ng guidelines reviewed Last Documented On 9 8:14AM ; [facility] Patient Education: Daily valery cium and vitamin D Last Documented On 9 8:14AM ; [facility] Patient Education: weight be aring exercise Last Documented On 9 8:14AM ; [facility] Colonoscopy screening guidel gael discussed Last Documented On 9 8:14AM ; [facility] STD screening offered and de clined Last Documented On 7 8:20AM ; [facility] Bone Mineral Density Screeni ng guidelines reviewed Last Documented On 7 8:20AM ; [facility] Colonoscopy screening guidel gael discussed Last Documented On 7 8:20AM ; [facility] She will keep a menstrual di dale Last Documented On 7 8:28AM ; [facility] STD screening offered and de clined Last Documented On 6 8:35AM ; [facility] Bone Mineral Density Screeni ng guidelines reviewed Last Documented On 6 8:35AM ; [facility] Colonoscopy screening guidel gael discussed Last Documented On 6 8:35AM ; [facility] STD screening offered and de clined Last Documented On 5 4:03PM ; [facility] INFORMED CONSENT DISCUSSION: Colposcopy was discussed in detail including risk of post procedure bleeding and infection. Patient is not to have anything in the vagnina-- no douches, tampons, tub baths, sex--- till all the discharge is done following the procedure. Patient expressed understanding of the above and consented to the procedure Last Documented On 3 12:22PM ; [facility] Assessments Includes: Assessments for all patient encounters Findings Encounter Date Cervical Pap smear was satis factory but lacked endocervical / transformation zone RE-PAP with ZHANNA BETANCOURT MD 05/10/2018 Last Documented On 9 4:28PM ; [facility] Fibrocystic disease of breast ANNUAL SOFT IRON INSPECTOR EXAM wi ZHANNA BETANCOURT MD 03/23/2018 Last Documented On 9 8:29AM ; [facility] NORMAL FEMALE EXAM ANNUAL SOFT IRON INSPECTOR EXAM with ZHANNA CAMPOS MD 03/23/2018 Last Documented On 9 8:29AM ; [facility] Screening Malig. Neoplasm Rectum ANNUAL SOFT IRON INSPECTOR EXAM with ZHANNA BETANCOURT MD 03/23/2018 Last Documented On 9 8:29AM ; [facility] Dysmenorrhea MANAGER DOCUMENT CONTROL EXAM with ZHANNA BETANCOURT MD 02/02/2017 Last Documented On 7 8:52AM ; [facility] Fibrocystic disease of breast MANAGER DOCUMENT CONTROL EXAM with ZHANNA BETANCOURT MD 02/02/2017 Last Documented On 7 8:52AM ; [facility] NORMAL FEMALE EXAM MANAGER DOCUMENT CONTROL EXAM with ZHANNA BETANCOURT MD 02/02/2017 Last Documented On 7 8:52AM ; [facility] Screening Malig. Neoplasm Rectum MANAGER DOCUMENT CONTROL EXAM with Lisa BETANCOURT MD 02/02/2017 Last Documented On 7 8:52AM ; [facility] Fibrocystic disease of breast ANNUAL SOFT IRON INSPECTOR EXAM wi ZHANNA BETANCOURT MD 05/25/2015 Last Documented On 6 8:51AM ; [facility] NORMAL FEMALE EXAM ANNUAL SOFT IRON INSPECTOR EXAM with ZHANNA CAMPOS MD 05/25/2015 Last Documented On 6 8:51AM ; [facility] Screening Malig. Neoplasm Rectum ANNUAL SOFT IRON INSPECTOR EXAM with ZHANNA BETANCOURT MD 05/25/2015 Last Documented On 6 8:51AM ; [facility] Breast fibrocystic disease MANAGER DOCUMENT CONTROL EXAM with ZHANNA GARCIA MD 03/29/2014 Last Documented On 5 4:25PM ; [facility] NORMAL FEMALE EXAM MANAGER DOCUMENT CONTROL EXAM with ZHANNA BETANCOURT MD 03/29/2014 Last Documented On 5 4:25PM ; [facility] Screening Malig. Neoplasm Rectum MANAGER DOCUMENT CONTROL EXAM with Lisa BETANCOURT MD 03/29/2014 Last Documented On 5 4:25PM ; [facility] Assessment of cervical Pap s mear: low grade squamous intraepithelial lesion MANAGER DOCUMENT CONTROL EXAM with ZHANNA BETANCOURT MD 03/28/2013 Last Documented On 4 3:19PM ; [facility] Breast fibrocystic disease MANAGER DOCUMENT CONTROL EXAM with ZHANNA GARCIA MD 03/28/2013 Last Documented On 4 3:19PM ; [facility] NORMAL FEMALE EXAM MANAGER DOCUMENT CONTROL EXAM with ZHANNA BETANCOURT MD 03/28/2013 Last Documented On 4 3:19PM ; [facility] Cervical dysplasia--mild (MICH I) PAP SMEAR ONLY with ZHANNA BETANCOURT MD 12/07/2012 Last Documented On 3 4:59PM ; [facility] Cervical dysplasia--mild (MICH I) RE-PAP with ZHANNA BETANCOURT MD 09/01/2012 Last Documented On 3 3:10PM ; [facility] Cervical dysplasia--mild (MICH I) 3 WK CK-UP with ZHANNA BETANCOURT MD 05/20/2012 Last Documented On 3 8:21AM ; [facility] Cervical Pap smear: low grad e squamous intraepithelial lesion COLPOSCOPY with ZHANNA BETANCOURT MD 04/14/2012 Last Documented On 3 12:23PM ; [facility] Breast fibrocystic disease PROBLEM VISIT with KIARA BETANCOURT MD 03/25/2012 Last Documented On 3 8:42AM ; [facility] Incisional hernia PROBLEM VISIT with ZHANNA PAEZ MD 03/25/2012 Last Documented On 3 8:42AM ; [facility] NORMAL FEMALE EXAM PROBLEM VISIT with ZHANNA RAI MD 03/25/2012 Last Documented On 3 8:42AM ; [facility] Instructions Includes: Instructions for all patient encounters Instructions to patient Instructions for patient : B reast Self Exam discussed Last Documented On 9 8:14AM ; [facility] Instructions for patient : B reast Self Exam discussed Last Documented On 7 8:20AM ; [facility] Instructions for patient : B reast Self Exam discussed Last Documented On 6 8:35AM ; [facility] Instructions for patient : B reast Self Exam discussed Last Documented On 5 4:03PM ; [facility] Instructions for patient : B reast Self Exam discussed and technique reviewed Last Documented On 4 3:07PM ; [facility] Instructions for patient : B reast Self Exam discussed and technique reviewed Last Documented On 3 8:23AM ; [facility] Education and Decision Aids were provided during visit for: STD screening offered and de clined Last Documented On 9 8:14AM ; [facility] Bone Mineral Density Screeni ng guidelines reviewed Last Documented On 9 8:14AM ; [facility] Patient Education: Daily valery cium and vitamin D Last Documented On 9 8:14AM ; [facility] Patient Education: weight be aring exercise Last Documented On 9 8:14AM ; [facility] Colonoscopy screening guidel gael discussed Last Documented On 9 8:14AM ; [facility] STD screening offered and de clined Last Documented On 7 8:20AM ; [facility] Bone Mineral Density Screeni ng guidelines reviewed Last Documented On 7 8:20AM ; [facility] Colonoscopy screening guidel gael discussed Last Documented On 7 8:20AM ; [facility] She will keep a menstrual di dale Last Documented On 7 8:28AM ; [facility] STD screening offered and de clined Last Documented On 6 8:35AM ; [facility] Bone Mineral Density Screeni ng guidelines reviewed Last Documented On 6 8:35AM ; [facility] Colonoscopy screening guidel gael discussed Last Documented On 6 8:35AM ; [facility] STD screening offered and de clined Last Documented On 5 4:03PM ; [facility] INFORMED CONSENT DISCUSSION: Colposcopy was discussed in detail including risk of post procedure bleeding and infection. Patient is not to have anything in the vagnina-- no douches, tampons, tub baths, sex--- till all the discharge is done following the procedure. Patient expressed understanding of the above and consented to the procedure Last Documented On 3 12:22PM ; [facility] Medical Equipment - Implanted Devices Includes: Current and historical Devices No Medical Equipment Recorded Medications Includes: Current and historical Medications Current Medications (continue as prescribed) Lunesta 3MG Oral Tablet 02/02/2017 Provider: Diagnosis: Last Documented On 7 8:06AM By PATIENCE HUDSON ; [facility] Daily Multiple Plus Iron Tablet 05/25/2015 Provi simran: Diagnosis: Last Documented On 6 8:28AM By PATIENCE HUDSON ; [facility] SM Fish Oil 1000 MG Capsule, conventional 05/25/2015 Provider: Diagnosis: qid Last Documented On 6 8:28AM By PATIENCE HUDSON ; [facility] Vitamin C 500 MG Tablet 05/25/2015 Provider: Diagnosis: Last Documented On 6 8:29AM By PATIENCE HUDSON ; [facility] Tylenol 325 MG Tablet 05/25/2015 Provider: Diagnosis: as needed Last Documented On 6 8:30AM By PATIENCE HUDSON ; [facility] Daily Value Multivitamin OR TABS 03/25/2012 Provider : Diagnosis: 1QD Last Documented On 03/25/2012 8:10AM By CLAYTON CARTER LPN ; [facility] Past Medications on file Lo Loestrin Fe 1 MG-10 MCG /10 MCG Oral Tablet 02/02/2017 - 03/23/2018 Provider: ZHANNA Stevens Diagnosis: Dysmenorrhea, unspecified One tablet daily Last Documented On 9 8:05AM By JOHN RIDLEY LPN ; [facility] Ambien CR 6.25 MG Tablet, controlled-release 6 - 02/02/2017 Provider: Diagnosis: Last Documented On 7 8:05AM By PATIENCE HUDSON ; [facility] Doxycycline Hyclate 100 MG Capsule, conventional 05/25/2015 - 02/02/2017 Provider: Diagnosis: Last Documented On 7 8:05AM By PATIENCE HUDSON ; [facility] DULoxetine HCl 60 MG Capsule , delayed-release particles 05/25/2015 - 02/02/2017 Provider: Diagnosis: Last Documented On 7 8:05AM By PATIENCE HUDSON ; [facility] Medications Administered Includes: Administered Medications in patient's chart No Administered Medications Recorded Results Includes: Results from 05/24/2023 through 05/23/2024 No Results Recorded For Specified Dates History of Present Illness History of Present Illness not supported for this document type No History of Present Illness Recorded Social History Description Last Updated Able to walk 03/23/2018 Last Documented On 9 8:29AM ; [facility] Smoking status : Never smoker 03/23/2018 Last Documented On 9 8:29AM ; [facility] Alcohol use socially, maybe once a month 02/02/2017 Last Documented On 7 8:52AM ; [facility] Exercising regularly 02/02/2017 Last Documented On 7 8:52AM ; [facility] Marital history 02/02/2017 Last Documented On 7 8:52AM ; [facility] Not using drugs 02/02/2017 Last Documented On 7 8:52AM ; [facility] Sexually active with 1 partners in the l ast year 1 05/25/2015 Last Documented On 6 8:51AM ; [facility] Social history unchanged 05/25/2015 Last Documented On 6 8:51AM ; [facility] Sexually active 12/07/2012 Last Documented On 3 4:59PM ; [facility] In monogamous relationship 04/14/2012 Last Documented On 3 12:23PM ; [facility] Non-smoker 04/14/2012 Last Documented On 3 12:23PM ; [facility] Procedures and Surgical History Surgical History Last Updated Previous colposcopy 3 with MICH I in the biopsy and the ECC negative 02/02/2017 Last Documented On 7 8:52AM ; [facility] Surgical / procedural histor y incisional hernia w/endometrosis 11-09-[address] Gomez at [facility] (no mesh used) 03/28/2013 Last Documented On 4 3:19PM ; [facility] Medical History Includes: Medical History in patient's chart Description Last Updated LMP: 04/26/2018 05/10/2018 Last Documented On 9 4:28PM ; [facility] Last mammogram date: 04/10/2018 9 Last Documented On 9 4:28PM ; [facility] Last pap smear date 03/23/2018 05/10/2018 Last Documented On 9 4:28PM ; [facility] History of Pap smear done 05/25/2015 ---A SCUS with pos HR HPV DNA 02/02/2017 Last Documented On 7 8:52AM ; [facility] Result: normal 02/02/2017 Last Documented On 7 8:52AM ; [facility] section x 3 05/25/2015 Last Documented On 6 8:51AM ; [facility] PRIMARY CARE PROVIDER : Haresh Stout 09/2015 Last Documented On 6 8:51AM ; [facility] Sexually active 05/25/2015 Last Documented On 6 8:51AM ; [facility] A colonoscopy was performed 2009 016 Last Documented On 6 8:51AM ; [facility] Not using contraception 05/25/2015 Last Documented On 6 8:51AM ; [facility] History of a screening mammogram was per formed 201003/29/2014 Last Documented On 5 4:25PM ; [facility] Result: abnormal LGSIL 04/14/2012 Last Documented On 3 12:23PM ; [facility] Crohn's disease -- dx'd in 2008 ---manag es with diet 03/25/2012 Last Documented On 3 8:42AM ; [facility] Result: normal 03/25/2012 Last Documented On 3 8:42AM ; [facility] Partner with vasectomy 03/25/2012 Last Documented On 3 8:42AM ; [facility] IUD Mirena IUD placed april 2011 and it fell out 6 weeks later ([facility]) 03/25/2012 Last Documented On 3 8:42AM ; [facility] Aborta 1 03/25/2012 Last Documented On 3 8:42AM ; [facility] 4 03/25/2012 Last Documented On 3 8:42AM ; [facility] Para 3 03/25/2012 Last Documented On 3 8:42AM ; [facility] Family History Includes: Family History in patient's chart Description Last Updated Maternal history of diabetes mellitus mo m 05/25/2015 Last Documented On 6 8:51AM ; [facility] Maternal history of hypertension mom 09/2015 Last Documented On 6 8:51AM ; [facility] Spouse name: Marcos Mix 12/07/2012 Last Documented On 3 4:59PM ; [facility] Family history of diabetes mellitus mom 12/07/2012 Last Documented On 3 4:59PM ; [facility] Family history of hypertension mom 12/07 Last Documented On 3 4:59PM ; [facility] Family history of cancer negative for br east, uterine, ovarian, colon 03/25/2012 Last Documented On 3 8:42AM ; [facility] Review of Systems Review of Systems not supported for this document type No Review of Systems Recorded Mental Status No Mental Status Recorded Functional Status No Functional Status Recorded Physical Exam Physical Exam not supported for this document type No Physical Exam Recorded Allergies Includes: Active, inactive, and resolved Allergies Substance Type Reaction Onset Date Resolved Date Statu s Tomatoes Allergy 05/25/2015 Active Last Documented On 9 3:46PM ; [facility] Peppers Allergy 05/25/2015 Active Last Documented On 9 3:46PM ; [facility] Insurance Includes: Active Insurance Policies Plan Name Member ID Group # Subscriber Relationship Effect jimmie Dates 1 - [facility] [id number] MARCOS MIX Clinical Notes Includes: Signed Clinical Notes starting from 03/07/2022 No Clinical Notes Recorded
--- OUTSIDE RECORDS SUMMARY | 2024-05-23 17:34 | XMS_ITS | Clinical Summary ---
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 Gender Identity Not on file Sexual Orientation Not on file Plan of Treatment Health Maintenance Due Date Last Done Comments Hepatitis C Virus (HCV) Screening 1973 TdaP Immunization 1973 Hepatitis B Immunization (1 of 3 - 19+ 3-dose series) 1992 Colonoscopy 2018 Colorectal Cancer Screening 2018 Cologuard 09/19/2023 Immunochemical Fecal Occult Blood 09/19/2023 Pneumococcal Immunization (5 0+ years) (1 of 1 - PCV) 09/19/2023 Zoster Immunization (1 of 2) 09/19/2023 Influenza Immunization (#1) 2023 SARS-COV-2 Immunization (2023- season) 2023 11/16/2020, 05/15/2020, 04/16/2020 Respiratory Syncytial Virus (RSV) Immunization (Adult) (1 - 1-dose 75+ series) 2048 Discussion re Starting/Frequency of Mammograms Discontinued 04/10/2018, 10/08/2015 Mammogram Discontinued 04/10/2018, 10/08/2015 Meningococcal Immunization (ACWY) Aged Out No longer eligible based on patient's age to complete this topic Rotavirus Immunization Aged Out No lo nger eligible based on patient's age to complete this topic Procedures Procedure Name Priority Date/Time Associated Diagnosis Comments [facility] SCREENING BILATERAL DIGITAL W CAD W VENKAT Routine 04/10/2018 11:40 AM INDUSTRIAL MACHINE OPERATOR Encounter for screening mammogram for malignant neoplasm of breast from Last 3 Months or Most Recently Relevant to Health Maintenance Results * [facility] SCREENING BILATERAL DIGITAL W CAD W VENKAT (04/10/2018 11:40 AM INDUSTRIAL MACHINE OPERATOR) Anatomical Region Laterality Modality breast Bilateral Mammography 04/10/2018 11:1 9 AM INDUSTRIAL MACHINE OPERATOR Narrative 04/12/2018 12:56 PM INDUSTRIAL MACHINE OPERATOR - [facility] SCREENING BILATERAL DIGITAL W CAD W VENKAT BILATERAL DIGITAL SCREENING MAMMOGRAM 3D/2D WITH CAD WITH MEDIOLATERAL OBLIQUE CRANIOCAUDAL: 04/10/2018 The study was acquired using digital technology and interpreted from soft copy. Current study was also evaluated with ICAD version 7.2. CLINICAL: Routine screening. Patient has no complaints. No personal history of cancer. No family history of breast cancer. COMPARISONS: Comparison is made to exams dated: 10/08/2015 [facility] and 04/07/2011 [facility]. BREAST TISSUE:The tissue of both breasts is extremely dense, which lowers the sensitivity of mammography. FINDINGS: No significant masses, calcifications, or other findings are seen in either breast. There has been no significant interval change. IMPRESSION: BI-RAD 1 NEGATIVE There is no mammographic evidence of malignancy. A 1 year screening mammogram is recommended. The patient has been or will be contacted. The patient will be entered into a reminder system with a target due date of 1 year for her next screening exam. Electronically signed by: Susy lopez/liat:04/12/2018 12:28:43 Manager Simulation: Esperanza QUINTEROS(Juan)(Jarrett), [facility] letter sent: Normal Exam Reading location: [place] BI-RADS: 1 Negative Procedure Note Susy Stratton MD - 04/12/2018 - [facility] SCREENING BILATERAL DIGITAL W CAD W VENKAT BILATERAL DIGITAL SCREENING MAMMOGRAM 3D/2D WITH CAD WITH MEDIOLATERAL OBLIQUE CRANIOCAUDAL: 04/10/2018 The study was acquired using digital technology and interpreted from soft copy. Current study was also evaluated with ICAD version 7.2. CLINICAL: Routine screening. Patient has no complaints. No personal history of cancer. No family history of breast cancer. COMPARISONS: Comparison is made to exams dated: 10/08/2015 [facility] and 04/07/2011 [facility]. BREAST TISSUE:The tissue of both breasts is extremely dense, which lowers the sensitivity of mammography. FINDINGS: No significant masses, calcifications, or other findings are seen in either breast. There has been no significant interval change. IMPRESSION: BI-RAD 1 NEGATIVE There is no mammographic evidence of malignancy. A 1 year screening mammogram is recommended. The patient has been or will be contacted. The patient will be entered into a reminder system with a target due date of 1 year for her next screening exam. Electronically signed by: Susy lopez/liat:04/12/2018 12:28:43 Manager Simulation: Esperanza QUINTEROS(R)(M), [facility] letter sent: Normal Exam Reading location: [place] BI-RADS: 1 Negative Pawel Montoya MD IMG MAMMO ORDERABLES Final Res ult from Last 3 Months or Most Recently Relevant to Health Maintenance Insurance [facility] Care Teams Heel Buffer Relationship Specialty Start Date End Date Kieran Stout DO [id number] [id number] PCP - General Family Medicine 08/21/15
--- OUTSIDE RECORDS SUMMARY | 2024-05-23 17:34 | XMS_ITS | Clinical Summary ---
Author Organization [facility] Address [address] [place] [address] Phone Care Team Providers Care Kitchen Bath Designer Name Role Phone SERAFIN BOLANOS, ZHANNA Ewing Unavailable [phone] EVERETTE WINTER MD Primary Care Provider [phone] Reason for Visit and Chief Complaint RE-PAP Problems Includes: Problems addressed during this encounter and other active Problems All Visits Onset Date Resolved Date Provider Condition S tatus Dysmenorrhea 02/02/2017 ZHANNA BETANCOURT MD Activ e Last Documented On 02/02/2017 8:51AM ; [facility] Note: 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 ZHANNA BETANCOURT MD Active Last Documented On 3 7:56AM ; [facility] PAP SMEAR CERVIX W LGSIL 05/20/2012 ZHANNA PAEZ MD Active Last Documented On 3 7:56AM ; [facility] Plan of Treatment No Plan of Treatment Recorded Assessments Includes: Assessments from this encounter No Assessments Recorded Medical Equipment - Implanted Devices Includes: Current Devices No Medical Equipment Recorded Medications Includes: Medications discussed during this encounter and other current Medications Current Medications (continue as prescribed) Lunesta 3MG Oral Tablet 02/02/2017 Provider: Diagnosis: Last Documented On 7 8:06AM By PATIENCE HUDSON ; [facility] Daily Multiple Plus Iron Tablet 05/25/2015 Provi simran: Diagnosis: Last Documented On 6 8:28AM By PATIENCE HUDSON ; [facility] SM Fish Oil 1000 MG Capsule, conventional 05/25/2015 Provider: Diagnosis: qid Last Documented On 6 8:28AM By PATIENCE HUDSON ; [facility] Vitamin C 500 MG Tablet 05/25/2015 Provider: Diagnosis: Last Documented On 6 8:29AM By PATIENCE HUDSON ; [facility] Tylenol 325 MG Tablet 05/25/2015 Provider: Diagnosis: as needed Last Documented On 6 8:30AM By PATIENCE HUDSON ; [facility] Daily Value Multivitamin OR TABS 03/25/2012 Provider : Diagnosis: 1QD Last Documented On 03/25/2012 8:10AM By CLAYTON CARTER LPN ; [facility] Medications Administered Includes: Administered Medications from [...] Active Last Documented On 9 3:46PM ; [facility] Peppers Allergy 05/25/2015 Active Last Documented On 9 3:46PM ; [facility] Insurance Includes: Active Insurance Policies Plan Name Member ID Group # Subscriber Relationship Effect jimmie Dates 1 - [facility] [id number] MARCOS ROSSI Clinical Notes Includes: Clinical Notes from this encounter No Clinical Notes Recorded
--- OUTSIDE RECORDS SUMMARY | 2024-05-23 17:35 | XMS_ITS | Clinical Summary ---
Author Organization [facility] Address [address] [place] [address] Phone Care Team Providers Care Pipe Production Worker Name Role Phone SERAFIN BOLANOS, ZHANNA Ewing Unavailable [phone] EVERETTE STOUT MD Primary Care Provider [phone] Reason for Visit and Chief Complaint The Chief Complaint is: WWE Problems Includes: Problems addressed during this encounter and other active Problems All Visits Onset Date Resolved Date Provider Condition S tatus Dysmenorrhea 02/02/2017 ZHANNA BETANCOURT MD Activ e Last Documented On 02/02/2017 8:51AM ; [facility] Note: 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 - Last Documented On 03/23/2018 8:29AM ; [facility] Instructions to patient Instructions for patient : B reast Self Exam discussed Last Documented On 9 8:14AM ; [facility] Education and Decision Aids were provided during visit for: STD screening offered and de clined Last Documented On 9 8:14AM ; [facility] Bone Mineral Density Screeni ng guidelines reviewed Last Documented On 9 8:14AM ; [facility] Patient Education: Daily valery cium and vitamin D Last Documented On 9 8:14AM ; [facility] Patient Education: weight be aring exercise Last Documented On 9 8:14AM ; [facility] Colonoscopy screening guidel gael discussed Last Documented On 9 8:14AM ; [facility] Assessments Includes: Assessments from this encounter Findings - Fibrocystic disease of breast - Last Documented On 03/23/2018 8:29AM ; [facility] - NORMAL FEMALE EXAM - Last Documented On 03/23/2018 8:29AM ; [facility] - Screening Malig. Neoplasm Rectum - Last Documented On 03/23/2018 8:29AM ; [facility] Instructions Includes: Instructions from this encounter Instructions to patient Instructions for patient : B reast Self Exam discussed Last Documented On 9 8:14AM ; [facility] Education and Decision Aids were provided during visit for: STD screening offered and de clined Last Documented On 9 8:14AM ; [facility] Bone Mineral Density Screeni ng guidelines reviewed Last Documented On 9 8:14AM ; [facility] Patient Education: Daily valery cium and vitamin D Last Documented On 9 8:14AM ; [facility] Patient Education: weight be aring exercise Last Documented On 9 8:14AM ; [facility] Colonoscopy screening guidel gael discussed Last Documented On 9 8:14AM ; [facility] Medical Equipment - Implanted Devices Includes: Current Devices No Medical Equipment Recorded Medications Includes: Medications discussed during this encounter and other current Medications Discontinued / Stopped on this date ZHANNA BETANCOURT MD on 02/02/2017 Lo Loestrin Fe 1 MG-10 MCG / 10 MCG Oral Tablet Provider: ZHANNA BETANCOURT MD Diagnosis: Dysmenorrhea, un specified Last Documented On 9 8:05AM By JOHN RIDLEY LPN ; [facility] Current Medications (continue as prescribed) Lunesta 3MG Oral Tablet 02/02/2017 Provider: Diagnosis: Last Documented On 7 8:06AM By PATIENCE HUDSON ; [facility] Daily Multiple Plus Iron Tablet 05/25/2015 Provi simran: Diagnosis: Last Documented On 6 8:28AM By PATIENCE HUDSON ; [facility] SM Fish Oil 1000 MG Capsule, conventional 05/25/2015 Provider: Diagnosis: qid Last Documented On 6 8:28AM By PATIENCE HUDSON ; [facility] Vitamin C 500 MG Tablet [...] Vital Signs from this encounter Vital Name 03/23/2018 07:57A Blood Pressure Sitting (mmHg) 110/64 Height (in) 63.25 Weight (lb) 137 Body Mass Index (kg/m2) 24.1 Body Surface Area (m2) 1.7 Last Documented: On 03/23/2018 8:03AM ; [facility] Results Includes: Results discussed during this encounter No Results Recorded For Specified Dates History of Present Illness Includes: History of Present Illness from this encounter MICHELLE MIX is a 42 year old female. - PRIMARY CARE PROVIDER : is Dr Stout. Pt tried OCP's to control her flow last year. She had BTB: 'periods were 20 days long' and successive months did not lessen in flow. She is back to not doing anything. She has 6 days of flow and it is not as heavy. In her heaviest 24 hours she uses 6-8 items per 24 hours for 2-3 days of that flow. She takes tylenol or ibuprofen an it helps. She will continue with this management. Social History Description Last Updated Able to walk 03/23/2018 Last Documented On 9 8:29AM ; [facility] Smoking status : Never smoker 03/23/2018 Last Documented On 9 8:29AM ; [facility] Alcohol use socially, maybe once a month 02/02/2017 Last Documented On 9 7:51AM ; [facility] Marital history 02/02/2017 Last Documented On 9 7:51AM ; [facility] Sexually active with 1 partners in the l ast year 1 05/25/2015 Last Documented On 9 7:51AM ; [facility] Social history unchanged 05/25/2015 Last Documented On 9 7:51AM ; [facility] Sexually active 12/07/2012 Last Documented On 9 7:51AM ; [facility] Non-smoker 04/14/2012 Last Documented On 9 7:51AM ; [facility] Procedures and Surgical History Includes: Procedures from this encounter Procedures Code Diagnosis Performing Provider Service L ocation Service Date discharge medications reconciled with current medication list 1111F Last Documented On 9 8:04AM ; [facility] Clinical summary provided to patient Last Documented On 9 8:14AM ; [facility] cervical Pap smear 65610 Last Documented On 9 8:14AM ; [facility] FIT Test-Fecal Occult negative 41890 Last Documented On 9 8:14AM ; [facility] Surgical History Last Updated Previous colposcopy 3 with MICH I in the biopsy and the ECC negative 02/02/2017 Last Documented On 9 7:51AM ; [facility] Surgical / procedural histor y incisional hernia w/endometrosis 11-09-[address] Gomez at [facility] (no mesh used) 03/28/2013 Last Documented On 9 7:51AM ; [facility] Medical History Includes: Medical History addressed during this encounter Description Last Updated Last mammogram date: 10/08/2015 9 Last Documented On 9 7:51AM ; [facility] LMP: 03/04/2018 03/23/2018 Last Documented On 9 8:29AM ; [facility] Last pap smear date 03/04/2017 03/23/2018 Last Documented On 9 8:29AM ; [facility] History of Pap smear done 05/25/2015 ---A SCUS with pos HR HPV DNA 02/02/2017 Last Documented On 9 7:51AM ; [facility] Result: normal 02/02/2017 Last Documented On 9 7:51AM ; [facility] section x 3 05/25/2015 Last Documented On 9 7:51AM ; [facility] Sexually active 05/25/2015 Last Documented On 9 7:51AM ; [facility] A colonoscopy was performed 2009 016 Last Documented On 9 7:51AM ; [facility] History of a screening mammogram was per formed 201003/29/2014 Last Documented On 9 7:51AM ; [facility] Crohn's disease -- dx'd in 2008 ---manag es with diet 03/25/2012 Last Documented On 9 7:51AM ; [facility] Result: normal 03/25/2012 Last Documented On 9 7:51AM ; [facility] Partner with vasectomy 03/25/2012 Last Documented On 9 7:51AM ; [facility] IUD Mirena IUD placed april 2011 and it fell out 6 weeks later ([facility]) 03/25/2012 Last Documented On 9 7:51AM ; [facility] Aborta 1 03/25/2012 Last Documented On 9 7:51AM ; [facility] 4 03/25/2012 Last Documented On 9 7:51AM ; [facility] Para 3 03/25/2012 Last Documented On 9 7:51AM ; [facility] Family History Includes: Family History addressed during this encounter Description Last Updated Maternal history of diabetes mellitus mo m 05/25/2015 Last Documented On 9 7:51AM ; [facility] Maternal history of hypertension mom 09/2015 Last Documented On 9 7:51AM ; [facility] Spouse name: Marcos Mix 12/07/2012 Last Documented On 9 7:51AM ; [facility] Family history of diabetes mellitus mom 12/07/2012 Last Documented On 9 7:51AM ; [facility] Family history of hypertension mom 12/07 Last Documented On 9 7:51AM ; [facility] Family history of cancer negative for br east, uterine, ovarian, colon 03/25/2012 Last Documented On 9 7:51AM ; [facility] Review of Systems Includes: Review of Systems from this encounter Gastrointestinal: No nausea, no vomiting, and no hematochezia. Genitourinary: No change in urinary frequency and no feelings of urinary urgency. No urinary loss of control and no incontinence. No dysuria, no stress incontinence, does not feel like bladder is falling out, no vaginal itching or burning, and no vaginal pain during intercourse. No vaginal dryness and no unexplained vaginal bleeding. Musculoskeletal: No arthralgias and no localized joint swelling. Psychological: No anxiety, no depression, and no sleep disturbances. Mental Status Includes: Mental Status from this encounter Description No anxiety Functional Status Includes: Functional Status from this encounter No Functional Status Recorded Physical Exam Includes: Physical Exam from this encounter Allergies Includes: Active Allergies Substance Type Reaction Onset Date Resolved Date Statu s Tomatoes Allergy 05/25/2015 Active Last Documented On 9 3:46PM ; [facility] Peppers Allergy 05/25/2015 Active Last Documented On 9 3:46PM ; [facility] Encounters Encounter Provider Location Date Check-In Time Check-Out Time Diagnosis ANNUAL MANUAL WINDER EXAM ZHANNA BETANCOURT MD [facility] TRANSIT VEHICLE INSPECTOR 03/23/19 19 7:46AM 8:32AM Breast Fibrocystic Disease,Screeni ng Dexter. Neoplasm Rectum,Normal Female Exam Insurance Includes: Active Insurance Policies Plan Name Member ID Group # Subscriber Relationship Effect jimmie Dates 1 - [facility] [id number] MARCOS MIX Clinical Notes Includes: Clinical Notes from this encounter No Clinical Notes Recorded
--- OUTSIDE RECORDS SUMMARY | 2024-05-23 17:35 | XMS_ITS | Clinical Summary ---
Author Organization [facility] Address [address] [place] [address] Phone Care Team Providers Care Collections Assistant Name Role Phone SERAFIN BOLANOS, ZHANNA Ewing Unavailable [phone] EVERETTE WINTER MD Primary Care Provider [phone] Reason for Visit and Chief Complaint NO SHOW Problems Includes: Problems addressed during this encounter and other active Problems All Visits Onset Date Resolved Date Provider Condition S tatus Dysmenorrhea 02/02/2017 ZHANNA BETANCOURT MD Activ e Last Documented On 02/02/2017 8:51AM ; [facility] Note: 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 ZHANNA BETANCOURT MD Active Last Documented On 3 7:56AM ; [facility] PAP SMEAR CERVIX W LGSIL 05/20/2012 ZHANNA PAEZ MD Active Last Documented On 3 7:56AM ; [facility] Plan of Treatment No Plan of Treatment Recorded Assessments Includes: Assessments from this encounter No Assessments Recorded Medical Equipment - Implanted Devices Includes: Current Devices No Medical Equipment Recorded Medications Includes: Medications discussed during this encounter and other current Medications Current Medications (continue as prescribed) Lunesta 3MG Oral Tablet 02/02/2017 Provider: Diagnosis: Last Documented On 7 8:06AM By PATIENCE HUDSON ; [facility] Daily Multiple Plus Iron Tablet 05/25/2015 Provi simran: Diagnosis: Last Documented On 6 8:28AM By PATIENCE HUDSON ; [facility] SM Fish Oil 1000 MG Capsule, conventional 05/25/2015 Provider: Diagnosis: qid Last Documented On 6 8:28AM By PATIENCE HUDSON ; [facility] Vitamin C 500 MG Tablet 05/25/2015 Provider: Diagnosis: Last Documented On 6 8:29AM By PATIENCE HUDSON ; [facility] Tylenol 325 MG Tablet 05/25/2015 Provider: Diagnosis: as needed Last Documented On 6 8:30AM By PATIENCE HUDSON ; [facility] Daily Value Multivitamin OR TABS 03/25/2012 Provider : Diagnosis: 1QD Last Documented On 03/25/2012 8:10AM By CLAYTON CARTER LPN ; [facility] Medications Administered Includes: Administered Medications from this [...] Active Last Documented On 9 3:46PM ; [facility] Peppers Allergy 05/25/2015 Active Last Documented On 9 3:46PM ; [facility] Insurance Includes: Active Insurance Policies Plan Name Member ID Group # Subscriber Relationship Effect jimmie Dates 1 - [facility] [id number] MARCOS ROSSI Clinical Notes Includes: Clinical Notes from this encounter No Clinical Notes Recorded
[2024-05-23 19:57] LABS: Hemoglobin 12.2 g/dL (12.0-15.0); Mean Corpuscular HGB Conc 30.5 g/dl (32-36); Mean Corpuscular Hemoglobin 28.9 pg (26-34); Mean Corpuscular Volume 94.8 fl (80-100); Platelet Count Result 361 k/mm3 (150-375); Red Blood Count 4.22 M/mm3 (4.2-5.4); Red Cell Distribution Width 13.1 % (11.5-14.5)
[2024-05-23 20:29] LABS: Alanine Aminotransferase 24 U/L (6-35); Albumin Level 3.9 g/dL (3.5-5.1); Alkaline Phosphatase 73 U/L (38-126); Anion Gap 6 mmol/L (4-12); Aspartate Amino Transferase 22 U/L (14-36); Bilirubin,Total 0.2 mg/dL (0.2-1.3); Blood Urea Nitrogen 15 mg/dL (7-17); CRP 1.1 mg/dL (<1.0); Calcium 9.3 mg/dL (8.4-10.2); Carbon Dioxide 34 mmol/L (22-30); Chloride 97 mmol/L (98-107); Estimated Glomerular Filt Rate > 60; Glucose 90 mg/dL (65-110); Potassium 4.7 mmol/L (3.4-5.0); Sodium 137 mmol/L (137-145)
[2024-05-23 20:42] LABS: Erythrocyte Sedimentation Rate 14 mm/hr (0-20)
[2024-05-23 21:30] LABS: Folic Acid 17.4 ng/mL (2.76->20)
[2024-05-23 22:05] LABS: Iron 68 ug/dL (37-170)
[2024-05-23 22:20] LABS: Percent Iron Saturation 15 % (20-50)
[2024-05-23 22:40] LABS: Ferritin 8.16 ng/mL (11.1-264)
[2024-05-24] LABS: Hepatitis B Surface Antigen Negative (Negative)
[2024-05-24 00:17] LABS: Hepatitis B Surface Anti Res Negative
[2024-05-24 10:19] LABS: Hepatitis B Core Ab Total NON-REACTIVE (NON-REACTIVE)
== END 2024-05-23 15:34 | disposition home or self-care (01) ==
LOC: ANHGOSHLAB 15:34
PROVIDERS: PCP Family Medicine; Visit Provider Nurse Practitioner
DX: K50.919 Crohn's disease, unspecified, with unspecified complications (principal); R10.30 Lower abdominal pain, unspecified
CPT/HCPCS: 36415; 80053; 82607; 82652; 82728; 82746; 83540; 83550; 85027; 85652; 86140; 86704; 86706; 87340

== ENCOUNTER 2024-06-06 01:35 | Day surgery (SDC) | payer BC, SELFPAY ==
[2024-05-27 13:30] VITALS: BMI 27.6
--- OUTSIDE RECORDS SUMMARY | 2024-06-06 01:38 | XMS_ITS | Clinical Summary ---
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 Gender Identity Not on file Sexual Orientation [...] Procedure Name Priority Date/Time Associated Diagnosis Comments [facility] SCREENING BILATERAL DIGITAL W CAD W VENKAT Routine 04/10/2018 11:40 AM ECONOMIC ANALYSIS DIRECTOR Encounter for screening mammogram for malignant neoplasm of breast from Last 3 Months or Most Recently Relevant to Health Maintenance Results * [facility] SCREENING BILATERAL DIGITAL W CAD W VENKAT (04/10/2018 11:40 AM ECONOMIC ANALYSIS DIRECTOR) Anatomical Region Laterality Modality breast Bilateral Mammography 04/10/2018 11:1 9 AM ECONOMIC ANALYSIS DIRECTOR Narrative 04/12/2018 12:56 PM ECONOMIC ANALYSIS DIRECTOR - [facility] SCREENING BILATERAL DIGITAL W CAD W [...] Comparison is made to exams dated: 10/08/2015 [facility] and 04/07/2011 [facility] BREAST TISSUE:The [...] exam. Electronically signed by: Susy lopez/liat:04/12/2018 12:28:43 Brick And Block Mason: Esperanza QUINTEROS(Juan)(Jarrett), [facility] letter sent: Normal Exam Reading location: YOUNG BI-RADS: 1 Negative Procedure Note Susy Stratton MD - 04/12/2018 - [facility] SCREENING BILATERAL DIGITAL W CAD W [...] Comparison is made to exams dated: 10/08/2015 [facility] and 04/07/2011 [facility]. BREAST TISSUE:The [...] exam. Electronically signed by: Susy lopez/liat:04/12/2018 12:28:43 Brick And Block Mason: Esperanza QUINTEROS(R)(M), [facility] letter sent: Normal Exam Reading location: YOUNG BI-RADS: 1 Negative Pawel Montoya MD IMG MAMMO ORDERABLES Final Res ult from Last 3 Months or Most Recently Relevant to Health Maintenance Insurance [facility] Care Teams Duct Layer Relationship Specialty Start Date End Date Kieran Stout DO [address] [id number] PCP - General Family Medicine 08/21/15
--- OUTSIDE RECORDS SUMMARY | 2024-06-06 01:38 | XMS_ITS | Clinical Summary ---
Author Organization [facility] Address [address] [place] [address] Phone Care Team Providers Care Shoe Stamper Name Role Phone SERAFIN BOLANOS, ZHANNA Ewing Unavailable [phone] EVERETTE WINTER MD Primary Care Provider [phone] Reason for Visit and Chief Complaint The Chief Complaint is: Repap Problems Includes: Problems addressed during this encounter and other active Problems All Visits Onset Date Resolved Date Provider Condition S tatus Dysmenorrhea 02/02/2017 ZHANNA BETANCOURT MD Activ e Last Documented On 02/02/2017 8:51AM ; [facility] Note: 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 ZHANNA BETANCOURT MD Active Last Documented On 3 7:56AM ; [facility] PAP SMEAR CERVIX W LGSIL 05/20/2012 ZHANNA PAEZ MD Active Last Documented On 3 7:56AM ; [facility] Plan of Treatment No Plan of Treatment Recorded Assessments Includes: Assessments from this encounter Findings - Cervical Pap smear was satisfactory but lacked endocervical / transformation zone - Last Documented On 05/10/2018 4:28PM ; [facility] Medical Equipment - Implanted Devices Includes: Current Devices No Medical Equipment Recorded Medications Includes: Medications discussed during this encounter and other current Medications Current Medications (continue as prescribed) Lunesta 3MG Oral Tablet 02/02/2017 Provider: Diagnosis: Last Documented On 7 8:06AM By PATIENCE HUDSON ; [facility] Daily Multiple Plus Iron Tablet 05/25/2015 Provi simran: Diagnosis: Last Documented On 6 8:28AM By PATIENCE HUDSON ; [facility] SM Fish Oil 1000 MG Capsule, conventional 05/25/2015 Provider: Diagnosis: qid Last Documented On 6 8:28AM By PATIENCE HUDSON ; [facility] Vitamin C 500 MG Tablet 05/25/2015 Provider: Diagnosis: Last Documented On 6 8:29AM By PATIENCE HUDSON ; [facility] Tylenol 325 MG Tablet 05/25/2015 Provider: Diagnosis: as needed Last Documented On 6 8:30AM By PATIENCE HUDSON ; [facility] Daily Value Multivitamin OR TABS 03/25/2012 Provider : Diagnosis: 1QD Last Documented On 03/25/2012 8:10AM By CLAYTON CARTER LPN ; [facility] Medications Administered Includes: Administered Medications from this encounter No Administered Medications Recorded Vital Signs Includes: Vital Signs from this encounter Vital Name 05/10/2018 03:45P Blood Pressure Sitting (mmHg) 112/60 Height (in) 62.5 Weight (lb) 137 Body Mass Index (kg/m2) 24.7 Body Surface Area (m2) 1.6 Last Documented: On 05/10/2018 3:46PM ; [facility] Results Includes: Results discussed during this encounter [...] 02/02/2017 Last Documented On 9 3:41PM ; [facility] Marital history 02/02/2017 Last Documented On 9 3:41PM ; [facility] Sexually active with 1 partners in the l ast year 1 05/25/2015 Last Documented On 9 3:41PM ; [facility] Sexually active 12/07/2012 Last Documented On 9 3:41PM ; [facility] Non-smoker 04/14/2012 Last Documented On 9 3:41PM ; [facility] Smoking Status Unknown Procedures and Surgical History Surgical History Last Updated Previous colposcopy 3 with MICH I in the biopsy and the ECC negative 02/02/2017 Last Documented On 9 3:41PM ; [facility] Surgical / procedural histor y incisional hernia w/endometrosis 11-09-[address] Gomez at [facility] (no mesh used) 03/28/2013 Last Documented On 9 3:41PM ; [facility] Medical History Includes: Medical History addressed during this encounter Description Last Updated LMP: 04/26/2018 05/10/2018 Last Documented On 9 4:28PM ; [facility] Last mammogram date: 04/10/2018 9 Last Documented On 9 4:28PM ; [facility] Last pap smear date 03/23/2018 05/10/2018 Last Documented On 9 4:28PM ; [facility] Result: normal 02/02/2017 Last Documented On 9 3:41PM ; [facility] section x 3 05/25/2015 Last Documented On 9 3:41PM ; [facility] Sexually active 05/25/2015 Last Documented On 9 3:41PM ; [facility] A colonoscopy was performed 2009 016 Last Documented On 9 3:41PM ; [facility] History of a screening mammogram was per formed 201003/29/2014 Last Documented On 9 3:41PM ; [facility] Crohn's disease -- dx'd in 2008 ---manag es with diet 03/25/2012 Last Documented On 9 3:41PM ; [facility] Result: normal 03/25/2012 Last Documented On 9 3:41PM ; [facility] Partner with vasectomy 03/25/2012 Last Documented On 9 3:41PM ; [facility] IUD Mirena IUD placed april 2011 and it fell out 6 weeks later ([facility]) 03/25/2012 Last Documented On 9 3:41PM ; [facility] Aborta 1 03/25/2012 Last Documented On 9 3:41PM ; [facility] 4 03/25/2012 Last Documented On 9 3:41PM ; [facility] Para 3 03/25/2012 Last Documented On 9 3:41PM ; [facility] Family History Includes: Family History addressed during this encounter Description Last Updated Maternal history of diabetes mellitus mo m 05/25/2015 Last Documented On 9 3:41PM ; [facility] Maternal history of hypertension mom 09/2015 Last Documented On 9 3:41PM ; [facility] Spouse name: Marcos Mix 12/07/2012 Last Documented On 9 3:41PM ; [facility] Family history of diabetes mellitus mom 12/07/2012 Last Documented On 9 3:41PM ; [facility] Family history of hypertension mom 12/07 Last Documented On 9 3:41PM ; [facility] Family history of cancer negative for br east, uterine, ovarian, colon 03/25/2012 Last Documented On 9 3:41PM ; [facility] Review of Systems Includes: Review of Systems [...] Documented On 9 3:46PM ; [facility] Peppers Allergy 05/25/2015 Active Last Documented On 9 3:46PM ; [facility] Encounters Encounter Provider Location Date Check-In Time Check-Out Time Diagnosis RE-PAP ZHANNA BETANCOURT MD [facility] ANALYST SALES 05/11/19 19 3:36PM 4:16PM Cerv Pap Smear Satisfactory But Lacking Endocerv / Transformation Zone Insurance Includes: Active Insurance Policies Plan Name Member ID Group # Subscriber Relationship Effect jimmie Dates 1 - [facility] [id number] MARCOS MIX Clinical Notes Includes: Clinical Notes from this encounter No Clinical Notes Recorded
--- OUTSIDE RECORDS SUMMARY | 2024-06-06 01:38 | XMS_ITS | Clinical Summary ---
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 ZHANNA BETANCOURT MD Active Last Documented On 3 7:56AM ; [facility] PAP SMEAR CERVIX W LGSIL 05/20/2012 ZHANNA PAEZ MD Active Last Documented On 3 7:56AM ; [facility] Plan of Treatment No Plan of Treatment Recorded Assessments Includes: Assessments from this encounter No Assessments Recorded Medical Equipment - Implanted Devices Includes: Current Devices No Medical Equipment Recorded Medications Includes: Medications discussed during this encounter and other current Medications Current Medications (continue as prescribed) Lunesta 3MG Oral Tablet 02/02/2017 Provider: Diagnosis: Last Documented On 7 8:06AM By PATIENCE HUDSON ; [facility] Daily Multiple Plus Iron Tablet 05/25/2015 Provi simran: Diagnosis: Last Documented On 6 8:28AM By PATIENCE HUDSON ; [facility] SM Fish Oil 1000 MG Capsule, conventional 05/25/2015 Provider: Diagnosis: qid Last Documented On 6 8:28AM By PATIENCE HUDSON ; [facility] Vitamin C 500 MG Tablet 05/25/2015 Provider: Diagnosis: Last Documented On 6 8:29AM By PATIENCE HUDSON ; [facility] Tylenol 325 MG Tablet 05/25/2015 Provider: Diagnosis: as needed Last Documented On 6 8:30AM By PATIENCE HUDSON ; [facility] Daily Value Multivitamin OR TABS 03/25/2012 Provider : Diagnosis: 1QD Last Documented On 03/25/2012 8:10AM By CLAYTON CARTER LPN ; [facility] Medications Administered Includes: Administered Medications from this [...] Active Last Documented On 9 3:46PM ; [facility] Peppers Allergy 05/25/2015 Active Last Documented On 9 3:46PM ; [facility] Insurance Includes: Active Insurance Policies Plan Name Member ID Group # Subscriber Relationship Effect jimmie Dates 1 - [facility] [id number] MARCOS ROSSI Clinical Notes Includes: Clinical Notes from this encounter No Clinical Notes Recorded
--- OUTSIDE RECORDS SUMMARY | 2024-06-06 01:38 | XMS_ITS | Clinical Summary ---
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 ZHANNA BETANCOURT MD Active Last Documented On 3 7:56AM ; [facility] PAP SMEAR CERVIX W LGSIL 05/20/2012 ZHANNA PAEZ MD Active Last Documented On 3 7:56AM ; [facility] Plan of Treatment No Plan of Treatment Recorded Assessments Includes: Assessments from this encounter No Assessments Recorded Medical Equipment - Implanted Devices Includes: Current Devices No Medical Equipment Recorded Medications Includes: Medications discussed during this encounter and other current Medications Current Medications (continue as prescribed) Lunesta 3MG Oral Tablet 02/02/2017 Provider: Diagnosis: Last Documented On 7 8:06AM By PATIENCE HUDSON ; [facility] Daily Multiple Plus Iron Tablet 05/25/2015 Provi simran: Diagnosis: Last Documented On 6 8:28AM By PATIENCE HUDSON ; [facility] SM Fish Oil 1000 MG Capsule, conventional 05/25/2015 Provider: Diagnosis: qid Last Documented On 6 8:28AM By PATIENCE HUDSON ; [facility] Vitamin C 500 MG Tablet 05/25/2015 Provider: Diagnosis: Last Documented On 6 8:29AM By PATIENCE HUDSON ; [facility] Tylenol 325 MG Tablet 05/25/2015 Provider: Diagnosis: as needed Last Documented On 6 8:30AM By PATIENCE HUDSON ; [facility] Daily Value Multivitamin OR TABS 03/25/2012 Provider : Diagnosis: 1QD Last Documented On 03/25/2012 8:10AM By CLAYTON CARTER LPN ; [facility] Medications Administered Includes: Administered Medications from [...] Active Last Documented On 9 3:46PM ; [facility] Peppers Allergy 05/25/2015 Active Last Documented On 9 3:46PM ; [facility] Insurance Includes: Active Insurance Policies Plan Name Member ID Group # Subscriber Relationship Effect jimmie Dates 1 - [facility] [id number] MARCOS ROSSI Clinical Notes Includes: Clinical Notes from this encounter No Clinical Notes Recorded
--- OUTSIDE RECORDS SUMMARY | 2024-06-06 01:38 | XMS_ITS | Clinical Summary ---
Author Organization [facility] Address [address] [place] [address] Phone Care Team Providers Care Dye House Worker Name Role Phone Unavailable Primary Care Provider [...] days. 3 mL 4 02/11/2024 12:13 PM SCREEN PRINTING LOADER UNLOADER 4 Active FLUoxetine (PROzac) 20 mg capsule Take 1 Capsule (20 mg) by mouth daily. 90 Capsule 02/26/2024 7:41 PM SCREEN PRINTING LOADER UNLOADER 5 Active omeprazole (PriLOSEC) 20 mg Capsule, Delayed Release(E.C.) Take 1 Capsule (20 mg) by mouth daily. 90 Capsule 02/26/2024 7:41 PM SCREEN PRINTING LOADER UNLOADER 5 Active tirzepatide (Mounjaro) 2.5 mg/0.5 mL Pen Injector Inject 0.5 mL (2.5 mg) by subcutaneous injection every 7 days. 2 mL 5 Active traZODone (DESYREL) 50 mg tablet Take 1 Tablet (50 mg) by mouth nightly as needed for sleep. 90 Tablet 1 03/31/2024 3:13 PM SCREEN PRINTING LOADER UNLOADER 5 Active predniSONE (DELTASONE) 5 mg tablet Take 8 tablets by mouth daily for 7 days, decreasing by 1 tablet every 7 days. (8 tablets, then 7, 6, 5, 4, 3, 2, 1) 252 Tablet 04/20/2024 7:25 PM SCREEN PRINTING LOADER UNLOADER Active Encounters Date Type Department Care Team Description 05/31/2024 External Device Data [facility] Provider, Abstract 05/04/2024 External Device Data [facility] Provider, [...] (1 of 2) 09/19/2023 Insurance RX [facility] [id number]
--- OUTSIDE RECORDS SUMMARY | 2024-06-06 01:38 | XMS_ITS | Clinical Summary ---
Author Organization [facility] Address [address] [place] [address] Phone Care Team Providers Care Sonar Technician Name Role Phone SERAFIN BOLANOS, ZHANNA Ewing Unavailable [phone] EVERETTE STOUT MD Primary Care Provider [phone] Reason for Visit and Chief Complaint The Chief Complaint is: WWE Problems Includes: Problems addressed during this encounter and other active Problems All Visits Onset Date Resolved Date Provider Condition S tatus Dysmenorrhea 02/02/2017 ZHANNA BETANCOURT MD Activ e Last Documented On 02/02/2017 8:51AM ; [facility] Note: 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 - Last Documented On 03/23/2018 8:29AM ; [facility] Instructions to patient Instructions for patient : B reast Self Exam discussed Last Documented On 9 8:14AM ; [facility] Education and Decision Aids were provided during visit for: STD screening offered and de clined Last Documented On 9 8:14AM ; [facility] Bone Mineral Density Screeni ng guidelines reviewed Last Documented On 9 8:14AM ; [facility] Patient Education: Daily valery cium and vitamin D Last Documented On 9 8:14AM ; [facility] Patient Education: weight be aring exercise Last Documented On 9 8:14AM ; [facility] Colonoscopy screening guidel gael discussed Last Documented On 9 8:14AM ; [facility] Assessments Includes: Assessments from this encounter Findings - Fibrocystic disease of breast - Last Documented On 03/23/2018 8:29AM ; [facility] - NORMAL FEMALE EXAM - Last Documented On 03/23/2018 8:29AM ; [facility] - Screening Malig. Neoplasm Rectum - Last Documented On 03/23/2018 8:29AM ; [facility] Instructions Includes: Instructions from this encounter Instructions to patient Instructions for patient : B reast Self Exam discussed Last Documented On 9 8:14AM ; [facility] Education and Decision Aids were provided during visit for: STD screening offered and de clined Last Documented On 9 8:14AM ; [facility] Bone Mineral Density Screeni ng guidelines reviewed Last Documented On 9 8:14AM ; [facility] Patient Education: Daily valery cium and vitamin D Last Documented On 9 8:14AM ; [facility] Patient Education: weight be aring exercise Last Documented On 9 8:14AM ; [facility] Colonoscopy screening guidel gael discussed Last Documented On 9 8:14AM ; [facility] Medical Equipment - Implanted Devices Includes: Current Devices No Medical Equipment Recorded Medications Includes: Medications discussed during this encounter and other current Medications Discontinued / Stopped on this date ZHANNA BETANCOURT MD on 02/02/2017 Lo Loestrin Fe 1 MG-10 MCG / 10 MCG Oral Tablet Provider: ZHANNA BETANCOURT MD Diagnosis: Dysmenorrhea, un specified Last Documented On 9 8:05AM By JOHN RIDLEY LPN ; [facility] Current Medications (continue as prescribed) Lunesta 3MG Oral Tablet 02/02/2017 Provider: Diagnosis: Last Documented On 7 8:06AM By PATIENCE HUDSON ; [facility] Daily Multiple Plus Iron Tablet 05/25/2015 Provi simran: Diagnosis: Last Documented On 6 8:28AM By PATIENCE HUDSON ; [facility] SM Fish Oil 1000 MG Capsule, conventional 05/25/2015 Provider: Diagnosis: qid Last Documented On 6 8:28AM By PATIENCE HUDSON ; [facility] Vitamin C 500 MG Tablet 05/25/2015 Provider: Diagnosis: Last Documented On 6 8:29AM By PATIENCE HUDSON ; [facility] Tylenol 325 MG Tablet 05/25/2015 Provider: Diagnosis: as needed Last Documented On 6 8:30AM By PATIENCE HUDSON ; [facility] Daily Value Multivitamin OR TABS 03/25/2012 Provider : Diagnosis: 1QD Last Documented On 03/25/2012 8:10AM By CLAYTON CARTER LPN ; [facility] Medications Administered Includes: Administered Medications from this encounter No Administered Medications Recorded Vital Signs Includes: Vital Signs from this encounter Vital Name 03/23/2018 07:57A Blood Pressure Sitting (mmHg) 110/64 Height (in) 63.25 Weight (lb) 137 Body Mass Index (kg/m2) 24.1 Body Surface Area (m2) 1.7 Last Documented: On 03/23/2018 8:03AM ; [facility] Results Includes: Results discussed during this encounter [...] 03/23/2018 Last Documented On 9 8:29AM ; [facility] Smoking status : Never smoker 03/23/2018 Last Documented On 9 8:29AM ; [facility] Alcohol use socially, maybe once a month 02/02/2017 Last Documented On 9 7:51AM ; [facility] Marital history 02/02/2017 Last Documented On 9 7:51AM ; [facility] Sexually active with 1 partners in the l ast year 1 05/25/2015 Last Documented On 9 7:51AM ; [facility] Social history unchanged 05/25/2015 Last Documented On 9 7:51AM ; [facility] Sexually active 12/07/2012 Last Documented On 9 7:51AM ; [facility] Non-smoker 04/14/2012 Last Documented On 9 7:51AM ; [facility] Procedures and Surgical History Includes: Procedures from this encounter Procedures Code Diagnosis Performing Provider Service L ocation Service Date discharge medications reconciled with current medication list 1111F Last Documented On 9 8:04AM ; [facility] Clinical summary provided to patient Last Documented On 9 8:14AM ; [facility] cervical Pap smear 75074 Last Documented On 9 8:14AM ; [facility] FIT Test-Fecal Occult negative 01649 Last Documented On 9 8:14AM ; [facility] Surgical History Last Updated Previous colposcopy 3 with MICH I in the biopsy and the ECC negative 02/02/2017 Last Documented On 9 7:51AM ; [facility] Surgical / procedural histor y incisional hernia w/endometrosis 11-09-[address] Gomez at [facility] (no mesh used) 03/28/2013 Last Documented On 9 7:51AM ; [facility] Medical History Includes: Medical History addressed during this encounter Description Last Updated Last mammogram date: 10/08/2015 9 Last Documented On 9 7:51AM ; [facility] LMP: 03/04/2018 03/23/2018 Last Documented On 9 8:29AM ; [facility] Last pap smear date 03/04/2017 03/23/2018 Last Documented On 9 8:29AM ; [facility] History of Pap smear done 05/25/2015 ---A SCUS with pos HR HPV DNA 02/02/2017 Last Documented On 9 7:51AM ; [facility] Result: normal 02/02/2017 Last Documented On 9 7:51AM ; [facility] section x 3 05/25/2015 Last Documented On 9 7:51AM ; [facility] Sexually active 05/25/2015 Last Documented On 9 7:51AM ; [facility] A colonoscopy was performed 2009 016 Last Documented On 9 7:51AM ; [facility] History of a screening mammogram was per formed 201003/29/2014 Last Documented On 9 7:51AM ; [facility] Crohn's disease -- dx'd in 2008 ---manag es with diet 03/25/2012 Last Documented On 9 7:51AM ; [facility] Result: normal 03/25/2012 Last Documented On 9 7:51AM ; [facility] Partner with vasectomy 03/25/2012 Last Documented On 9 7:51AM ; [facility] IUD Mirena IUD placed april 2011 and it fell out 6 weeks later ([facility]) 03/25/2012 Last Documented On 9 7:51AM ; [facility] Aborta 1 03/25/2012 Last Documented On 9 7:51AM ; [facility] 4 03/25/2012 Last Documented On 9 7:51AM ; [facility] Para 3 03/25/2012 Last Documented On 9 7:51AM ; [facility] Family History Includes: Family History addressed during this encounter Description Last Updated Maternal history of diabetes mellitus mo m 05/25/2015 Last Documented On 9 7:51AM ; [facility] Maternal history of hypertension mom 09/2015 Last Documented On 9 7:51AM ; [facility] Spouse name: Marcos Mix 12/07/2012 Last Documented On 9 7:51AM ; [facility] Family history of diabetes mellitus mom 12/07/2012 Last Documented On 9 7:51AM ; [facility] Family history of hypertension mom 12/07 Last Documented On 9 7:51AM ; [facility] Family history of cancer negative for br east, uterine, ovarian, colon 03/25/2012 Last Documented On 9 7:51AM ; [facility] Review of Systems Includes: Review of Systems [...] Active Last Documented On 9 3:46PM ; [facility] Peppers Allergy 05/25/2015 Active Last Documented On 9 3:46PM ; [facility] Encounters Encounter Provider Location Date Check-In Time Check-Out Time Diagnosis ANNUAL TANKROOM TENDER EXAM ZHANNA BETANCOURT MD [facility] [employer] 03/23/19 19 7:46AM 8:32AM Breast Fibrocystic Disease,Screeni ng Dexter. Neoplasm Rectum,Normal Female Exam Insurance Includes: Active Insurance Policies Plan Name Member ID Group # Subscriber Relationship Effect jimmie Dates 1 - [facility] [id number] MARCOS MIX Clinical Notes Includes: Clinical Notes from this encounter No Clinical Notes Recorded
--- OUTSIDE RECORDS SUMMARY | 2024-06-06 01:38 | XMS_ITS ---
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 ZHANNA BETANCOURT MD Active Last Documented On 3 7:56AM ; [facility] PAP SMEAR CERVIX W LGSIL 05/20/2012 ZHANNA PAEZ MD Active Last Documented On 3 7:56AM ; [facility] Plan of Treatment Findings Encounter Date She will let us know if she has other problems in the meantime ANNUAL PUMP TECHNICIAN EXAM with ZHANNA BETANCOURT MD 03/23/2018 Last Documented On 9 8:29AM ; [facility] Ordered follow-up visit 1 ye ar or as needed ANNUAL PUMP TECHNICIAN EXAM with ZHANNA BETANCOURT MD 03/23/2018 Last Documented On 9 8:29AM ; [facility] She will let us know if she has other problems in the mean time PRODUCTION PLANNING SUPERVISOR EXAM with ZHANNA BETANCOURT MD 02/02/2017 Last Documented On 7 8:52AM ; [facility] Follow-up for re-examination for 3 months with a BP check and on OCP's PRODUCTION PLANNING SUPERVISOR EXAM with ZHANNA BETANCOURT MD 02/02/2017 Last Documented On 7 8:52AM ; [facility] Ordered follow-up visit 1 ye ar or as needed PRODUCTION PLANNING SUPERVISOR EXAM with ZHANNA BETANCOURT MD 02/02/2017 Last Documented On 7 8:52AM ; [facility] Ordered patient to call if paz gatica develops PRODUCTION PLANNING SUPERVISOR EXAM with ZHANNA BETANCOURT MD 02/02/2017 Last Documented On 7 8:52AM ; [facility] She will keep a menstrual diary PRODUCTION PLANNING SUPERVISOR EXAM with KIARA BETANCOURT MD 02/02/2017 Last Documented On 7 8:52AM ; [facility] She will let us know if she has other problems in the meantime ANNUAL PUMP TECHNICIAN EXAM with ZHANNA BETANCOURT MD 05/25/2015 Last Documented On 6 8:51AM ; [facility] Ordered follow-up visit 1 ye ar or as needed ANNUAL PUMP TECHNICIAN EXAM with ZHANNA BETANCOURT MD 05/25/2015 Last Documented On 6 8:51AM ; [facility] She will let us know if she has other problems in the meantime PRODUCTION PLANNING SUPERVISOR EXAM with ZHANNA BETANCOURT MD 03/29/2014 Last Documented On 5 4:25PM ; [facility] Ordered follow-up visit 1 ye ar or as needed PRODUCTION PLANNING SUPERVISOR EXAM with ZHANNA BETANCOURT MD 03/29/2014 Last Documented On 5 4:25PM ; [facility] Instructions to patient Instructions for patient : B reast Self Exam discussed Last Documented On 9 8:14AM ; [facility] Instructions for patient : B reast Self Exam discussed Last Documented On 7 8:20AM ; [facility] Instructions for patient : B reast Self Exam discussed Last Documented On 6 8:35AM ; [facility] Instructions for patient : B reast Self Exam discussed Last Documented On 5 4:03PM ; [facility] Instructions for patient : B reast Self Exam discussed and technique reviewed Last Documented On 4 3:07PM ; [facility] Instructions for patient : B reast Self Exam discussed and technique reviewed Last Documented On 3 8:23AM ; [facility] Education and Decision Aids were provided during visit for: STD screening offered and de clined Last Documented On 9 8:14AM ; [facility] Bone Mineral Density Screeni ng guidelines reviewed Last Documented On 9 8:14AM ; [facility] Patient Education: Daily valery cium and vitamin D Last Documented On 9 8:14AM ; [facility] Patient Education: weight be aring exercise Last Documented On 9 8:14AM ; [facility] Colonoscopy screening guidel gael discussed Last Documented On 9 8:14AM ; [facility] STD screening offered and de clined Last Documented On 7 8:20AM ; [facility] Bone Mineral Density Screeni ng guidelines reviewed Last Documented On 7 8:20AM ; [facility] Colonoscopy screening guidel gael discussed Last Documented On 7 8:20AM ; [facility] She will keep a menstrual di dale Last Documented On 7 8:28AM ; [facility] STD screening offered and de clined Last Documented On 6 8:35AM ; [facility] Bone Mineral Density Screeni ng guidelines reviewed Last Documented On 6 8:35AM ; [facility] Colonoscopy screening guidel gael discussed Last Documented On 6 8:35AM ; [facility] STD screening offered and de clined Last Documented On 5 4:03PM ; [facility] INFORMED CONSENT DISCUSSION: Colposcopy was discussed in detail including risk of post procedure bleeding and infection. Patient is not to have anything in the vagnina-- no douches, tampons, tub baths, sex--- till all the discharge is done following the procedure. Patient expressed understanding of the above and consented to the procedure Last Documented On 3 12:22PM ; [facility] Assessments Includes: Assessments for all patient encounters Findings Encounter Date Cervical Pap smear was satis factory but lacked endocervical / transformation zone RE-PAP with ZHANNA BETANCOURT MD 05/10/2018 Last Documented On 9 4:28PM ; [facility] Fibrocystic disease of breast ANNUAL PUMP TECHNICIAN EXAM wi ZHANNA BETANCOURT MD 03/23/2018 Last Documented On 9 8:29AM ; [facility] NORMAL FEMALE EXAM ANNUAL PUMP TECHNICIAN EXAM with ZHANNA CAMPOS MD 03/23/2018 Last Documented On 9 8:29AM ; [facility] Screening Malig. Neoplasm Rectum ANNUAL PUMP TECHNICIAN EXAM with ZHANNA BETANCOURT MD 03/23/2018 Last Documented On 9 8:29AM ; [facility] Dysmenorrhea PRODUCTION PLANNING SUPERVISOR EXAM with ZHANNA BETANCOURT MD 02/02/2017 Last Documented On 7 8:52AM ; [facility] Fibrocystic disease of breast PRODUCTION PLANNING SUPERVISOR EXAM with ZHANNA BETANCOURT MD 02/02/2017 Last Documented On 7 8:52AM ; [facility] NORMAL FEMALE EXAM PRODUCTION PLANNING SUPERVISOR EXAM with ZHANNA BETANCOURT MD 02/02/2017 Last Documented On 7 8:52AM ; [facility] Screening Malig. Neoplasm Rectum PRODUCTION PLANNING SUPERVISOR EXAM with Lisa BETANCOURT MD 02/02/2017 Last Documented On 7 8:52AM ; [facility] Fibrocystic disease of breast ANNUAL PUMP TECHNICIAN EXAM wi ZHANNA BETANCOURT MD 05/25/2015 Last Documented On 6 8:51AM ; [facility] NORMAL FEMALE EXAM ANNUAL PUMP TECHNICIAN EXAM with ZHANNA CAMPOS MD 05/25/2015 Last Documented On 6 8:51AM ; [facility] Screening Malig. Neoplasm Rectum ANNUAL PUMP TECHNICIAN EXAM with ZHANNA BETANCOURT MD 05/25/2015 Last Documented On 6 8:51AM ; [facility] Breast fibrocystic disease PRODUCTION PLANNING SUPERVISOR EXAM with ZHANNA GARCIA MD 03/29/2014 Last Documented On 5 4:25PM ; [facility] NORMAL FEMALE EXAM PRODUCTION PLANNING SUPERVISOR EXAM with ZHANNA BETANCOURT MD 03/29/2014 Last Documented On 5 4:25PM ; [facility] Screening Malig. Neoplasm Rectum PRODUCTION PLANNING SUPERVISOR EXAM with Lisa BETANCOURT MD 03/29/2014 Last Documented On 5 4:25PM ; [facility] Assessment of cervical Pap s mear: low grade squamous intraepithelial lesion PRODUCTION PLANNING SUPERVISOR EXAM with ZHANNA BETANCOURT MD 03/28/2013 Last Documented On 4 3:19PM ; [facility] Breast fibrocystic disease PRODUCTION PLANNING SUPERVISOR EXAM with ZHANNA GARCIA MD 03/28/2013 Last Documented On 4 3:19PM ; [facility] NORMAL FEMALE EXAM PRODUCTION PLANNING SUPERVISOR EXAM with ZHANNA BETANCOURT MD 03/28/2013 Last Documented On 4 3:19PM ; [facility] Cervical dysplasia--mild (MICH I) PAP SMEAR ONLY with ZHANNA BETANCOURT MD 12/07/2012 Last Documented On 3 4:59PM ; [facility] Cervical dysplasia--mild (MICH I) RE-PAP with ZHANNA BETANCOURT MD 09/01/2012 Last Documented On 3 3:10PM ; [facility] Cervical dysplasia--mild (MICH I) 3 WK CK-UP with ZHANNA BETANCOURT MD 05/20/2012 Last Documented On 3 8:21AM ; [facility] Cervical Pap smear: low grad e squamous intraepithelial lesion COLPOSCOPY with ZHANNA BETANCOURT MD 04/14/2012 Last Documented On 3 12:23PM ; [facility] Breast fibrocystic disease PROBLEM VISIT with KIARA BETANCOURT MD 03/25/2012 Last Documented On 3 8:42AM ; [facility] Incisional hernia PROBLEM VISIT with ZHANNA PAEZ MD 03/25/2012 Last Documented On 3 8:42AM ; [facility] NORMAL FEMALE EXAM PROBLEM VISIT with ZHANNA RAI MD 03/25/2012 Last Documented On 3 8:42AM ; [facility] Instructions Includes: Instructions for all patient encounters Instructions to patient Instructions for patient : B reast Self Exam discussed Last Documented On 9 8:14AM ; [facility] Instructions for patient : B reast Self Exam discussed Last Documented On 7 8:20AM ; [facility] Instructions for patient : B reast Self Exam discussed Last Documented On 6 8:35AM ; [facility] Instructions for patient : B reast Self Exam discussed Last Documented On 5 4:03PM ; [facility] Instructions for patient : B reast Self Exam discussed and technique reviewed Last Documented On 4 3:07PM ; [facility] Instructions for patient : B reast Self Exam discussed and technique reviewed Last Documented On 3 8:23AM ; [facility] Education and Decision Aids were provided during visit for: STD screening offered and de clined Last Documented On 9 8:14AM ; [facility] Bone Mineral Density Screeni ng guidelines reviewed Last Documented On 9 8:14AM ; [facility] Patient Education: Daily valery cium and vitamin D Last Documented On 9 8:14AM ; [facility] Patient Education: weight be aring exercise Last Documented On 9 8:14AM ; [facility] Colonoscopy screening guidel gael discussed Last Documented On 9 8:14AM ; [facility] STD screening offered and de clined Last Documented On 7 8:20AM ; [facility] Bone Mineral Density Screeni ng guidelines reviewed Last Documented On 7 8:20AM ; [facility] Colonoscopy screening guidel gael discussed Last Documented On 7 8:20AM ; [facility] She will keep a menstrual di dale Last Documented On 7 8:28AM ; [facility] STD screening offered and de clined Last Documented On 6 8:35AM ; [facility] Bone Mineral Density Screeni ng guidelines reviewed Last Documented On 6 8:35AM ; [facility] Colonoscopy screening guidel gael discussed Last Documented On 6 8:35AM ; [facility] STD screening offered and de clined Last Documented On 5 4:03PM ; [facility] INFORMED CONSENT DISCUSSION: Colposcopy was discussed in detail including risk of post procedure bleeding and infection. Patient is not to have anything in the vagnina-- no douches, tampons, tub baths, sex--- till all the discharge is done following the procedure. Patient expressed understanding of the above and consented to the procedure Last Documented On 3 12:22PM ; [facility] Medical Equipment - Implanted Devices Includes: Current and historical Devices No Medical Equipment Recorded Medications Includes: Current and historical Medications Current Medications (continue as prescribed) Lunesta 3MG Oral Tablet 02/02/2017 Provider: Diagnosis: Last Documented On 7 8:06AM By PATIENCE HUDSON ; [facility] Daily Multiple Plus Iron Tablet 05/25/2015 Provi simran: Diagnosis: Last Documented On 6 8:28AM By PATIENCE HUDSON ; [facility] SM Fish Oil 1000 MG Capsule, conventional 05/25/2015 Provider: Diagnosis: qid Last Documented On 6 8:28AM By PATIENCE HUDSON ; [facility] Vitamin C 500 MG Tablet 05/25/2015 Provider: Diagnosis: Last Documented On 6 8:29AM By PATIENCE HUDSON ; [facility] Tylenol 325 MG Tablet 05/25/2015 Provider: Diagnosis: as needed Last Documented On 6 8:30AM By PATIENCE HUDSON ; [facility] Daily Value Multivitamin OR TABS 03/25/2012 Provider : Diagnosis: 1QD Last Documented On 03/25/2012 8:10AM By CLAYTON CARTER LPN ; [facility] Past Medications on file Lo Loestrin Fe 1 MG-10 MCG /10 MCG Oral Tablet 02/02/2017 - 03/23/2018 Provider: ZHANNA Stevens Diagnosis: Dysmenorrhea, unspecified One tablet daily Last Documented On 9 8:05AM By JOHN RIDLEY LPN ; [facility] Ambien CR 6.25 MG Tablet, controlled-release 6 - 02/02/2017 Provider: Diagnosis: Last Documented On 7 8:05AM By PATIENCE HUDSON ; [facility] Doxycycline Hyclate 100 MG Capsule, conventional 05/25/2015 - 02/02/2017 Provider: Diagnosis: Last Documented On 7 8:05AM By PATIENCE HUDSON ; [facility] DULoxetine HCl 60 MG Capsule , delayed-release particles 05/25/2015 - 02/02/2017 Provider: Diagnosis: Last Documented On 7 8:05AM By PATIENCE HUDSON ; [facility] Medications Administered Includes: Administered Medications in patient's chart No Administered Medications Recorded Results Includes: Results from 06/07/2023 through 06/06/2024 No Results Recorded For Specified Dates History of Present Illness History of Present Illness not supported for this document type No History of Present Illness Recorded Social History Description Last Updated Able to walk 03/23/2018 Last Documented On 9 8:29AM ; [facility] Smoking status : Never smoker 03/23/2018 Last Documented On 9 8:29AM ; [facility] Alcohol use socially, maybe once a month 02/02/2017 Last Documented On 7 8:52AM ; [facility] Exercising regularly 02/02/2017 Last Documented On 7 8:52AM ; [facility] Marital history 02/02/2017 Last Documented On 7 8:52AM ; [facility] Not using drugs 02/02/2017 Last Documented On 7 8:52AM ; [facility] Sexually active with 1 partners in the l ast year 1 05/25/2015 Last Documented On 6 8:51AM ; [facility] Social history unchanged 05/25/2015 Last Documented On 6 8:51AM ; [facility] Sexually active 12/07/2012 Last Documented On 3 4:59PM ; [facility] In monogamous relationship 04/14/2012 Last Documented On 3 12:23PM ; [facility] Non-smoker 04/14/2012 Last Documented On 3 12:23PM ; [facility] Procedures and Surgical History Surgical History Last Updated Previous colposcopy 3 with MICH I in the biopsy and the ECC negative 02/02/2017 Last Documented On 7 8:52AM ; [facility] Surgical / procedural histor y incisional hernia w/endometrosis 11-09-[address] Gomez at [facility] (no mesh used) 03/28/2013 Last Documented On 4 3:19PM ; [facility] Medical History Includes: Medical History in patient's chart Description Last Updated LMP: 04/26/2018 05/10/2018 Last Documented On 9 4:28PM ; [facility] Last mammogram date: 04/10/2018 9 Last Documented On 9 4:28PM ; [facility] Last pap smear date 03/23/2018 05/10/2018 Last Documented On 9 4:28PM ; [facility] History of Pap smear done 05/25/2015 ---A SCUS with pos HR HPV DNA 02/02/2017 Last Documented On 7 8:52AM ; [facility] Result: normal 02/02/2017 Last Documented On 7 8:52AM ; [facility] section x 3 05/25/2015 Last Documented On 6 8:51AM ; [facility] PRIMARY CARE PROVIDER : Haresh Stout 09/2015 Last Documented On 6 8:51AM ; [facility] Sexually active 05/25/2015 Last Documented On 6 8:51AM ; [facility] A colonoscopy was performed 2009 016 Last Documented On 6 8:51AM ; [facility] Not using contraception 05/25/2015 Last Documented On 6 8:51AM ; [facility] History of a screening mammogram was per formed 201003/29/2014 Last Documented On 5 4:25PM ; [facility] Result: abnormal LGSIL 04/14/2012 Last Documented On 3 12:23PM ; [facility] Crohn's disease -- dx'd in 2008 ---manag es with diet 03/25/2012 Last Documented On 3 8:42AM ; [facility] Result: normal 03/25/2012 Last Documented On 3 8:42AM ; [facility] Partner with vasectomy 03/25/2012 Last Documented On 3 8:42AM ; [facility] IUD Mirena IUD placed april 2011 and it fell out 6 weeks later ([facility]) 03/25/2012 Last Documented On 3 8:42AM ; [facility] Aborta 1 03/25/2012 Last Documented On 3 8:42AM ; [facility] 4 03/25/2012 Last Documented On 3 8:42AM ; [facility] Para 3 03/25/2012 Last Documented On 3 8:42AM ; [facility] Family History Includes: Family History in patient's chart Description Last Updated Maternal history of diabetes mellitus mo m 05/25/2015 Last Documented On 6 8:51AM ; [facility] Maternal history of hypertension mom 09/2015 Last Documented On 6 8:51AM ; [facility] Spouse name: Marcos Mix 12/07/2012 Last Documented On 3 4:59PM ; [facility] Family history of diabetes mellitus mom 12/07/2012 Last Documented On 3 4:59PM ; [facility] Family history of hypertension mom 12/07 Last Documented On 3 4:59PM ; [facility] Family history of cancer negative for br east, uterine, ovarian, colon 03/25/2012 Last Documented On 3 8:42AM ; [facility] Review of Systems Review of Systems not [...] Active Last Documented On 9 3:46PM ; [facility] Peppers Allergy 05/25/2015 Active Last Documented On 9 3:46PM ; [facility] Insurance Includes: Active Insurance Policies Plan Name Member ID Group # Subscriber Relationship Effect jimmie Dates 1 - [facility] [id number] MARCOS MIX Clinical Notes Includes: Signed Clinical Notes starting from 03/07/2022 No Clinical Notes Recorded
--- OUTSIDE RECORDS SUMMARY | 2024-06-06 01:38 | XMS_ITS | Clinical Summary ---
Author Organization [facility] [employer] Address [address] [place] [address] Care Team Providers Care Manufacturing Engineer Name Role Phone Pawel Montoya MD Unavailable Source Comments [facility] [employer],non-owned Affiliates and Associated Physician Practices is amultiple site organization consisting of ambulatory clinics and hospital sitesin [place], [place], [place] and [place]. This disclosure is being madepursuant to the Care Everywhere program and may not contain all information available regarding this patient. Last updated 17.[facility] [employer] [facility] Allergies Active Allergy Reactions Criticality Noted Date Comments Erythromycin GI Discomfort Low 03/31/2011 GI distress Medications * Be aware that medications may not be up to date on this document. Alwaysverify current medications with the patient. melatonin 3 MG tablet Take 1 Tab by mouth at bedtime. 30 Tab 1 04/12/2013 Active multivitamin daily (THERAGRAN) tablet Take 1 Tab by mouth daily with food. Active piroxicam (FELDENE) 20 MG capsuleIndicati ons:Sciatica of left side,Right foot pain Take 1 Cap by mouth daily with dinner. 30 Cap 0 10/19/2013 Active zolpidem (AMBIEN) 5 MG tablet Take 1 Tab by mouth nightly as needed. INSOMNIA 30 Tab 0 05/11/2014 Active mupirocin (BACTROBAN) 2 % ointmentIndicat ions:Impetigo Apply to affected area 3 times daily 22 g 07/21/2017 Active Active Problems Problem Noted Date Diagnosed Date Annual physical exam 10/19/2013 Sciatica of left side 10/19/2013 Right foot pain 10/19/2013 Irregular periods/menstrual cycles 10/19/2013 Overview (10/19/2013): Varying between 23-30 days. 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 Not on file No t on file Last Filed Vital Signs Vital [...] MAMMO BILAT SCREENING Routine 04/07/2011 2:02 PM DISTRIBUTOR ADVERTISING MATERIAL Screening for breast cancer from Last 3 [...] PM CDT Narrative Resulting Agency Comment [facility] [address] [facility] [id number] Tommy Marr DO LAB - CHEMISTRY ORDERABLES Final Result [facility] ACCOUNT BILL [address] [place] [address] * MAMMO SCREENING DIGITAL IMAGE BILAT (04/07/2011 2:02 PM DISTRIBUTOR ADVERTISING MATERIAL) Anatomical Region Laterality Modality Breast Bilateral Mammography 04/07/2011 2:24 PM DISTRIBUTOR ADVERTISING MATERIAL Narrative 04/07/2011 2:53 PM DISTRIBUTOR ADVERTISING MATERIAL DIGITAL BILATERAL SCREENING MAMMOGRAMS WITH CAD CORRELATION [...] if suspicious findings are present clinically. An [employer] Certified Facility Procedure Note [...] if suspicious findings are present clinically. An [employer] Certified Facility Matthew Adrian DO MAMMO ORDERABLES Final Result from Last 3 Months or Most Recently Relevant to Health Maintenance Insurance ANTHEM ANTHEM Care Teams Manufacturing Engineer Relationship Specialty Start Date End Date Pawel Montoya MD [address] [facility] [address] [id number] Obstetrics and Gynecology 10/19/13
--- OUTSIDE RECORDS SUMMARY | 2024-06-06 01:38 | XMS_ITS ---
Care Plan - [facility] Created on: June 06, 2024 KATE ROSSI : 1975 Sex: Female Author Organization [facility] Address [address] [place] [address] Phone Care Team Providers Care Crepe Laminator Operator Name Role Phone SERAFIN BOLANOS, ZHANNA Ewing Unavailable [phone] MAGGY BOLANOS, EVERETTE Sutherland Primary Care Provider [phone]
--- OUTSIDE RECORDS SUMMARY | 2024-06-06 01:38 | XMS_ITS | Clinical Summary ---
Author Organization [facility] Address [address] [place] [address] Phone Care Team Providers Care Car Top Bolter Name Role Phone SERAFIN BOLANOS, ZHANNA Ewing Unavailable [phone] EVERETTE WINTER MD Primary Care Provider [phone] Reason for Visit and Chief Complaint ANNUAL FASHION ADVISER EXAM Problems Includes: Problems addressed during this encounter and other active Problems All Visits Onset Date Resolved Date Provider Condition S tatus Dysmenorrhea 02/02/2017 ZHANNA BETANCOURT MD Activ e Last Documented On 02/02/2017 8:51AM ; [facility] Note: 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 ZHANNA BETANCOURT MD Active Last Documented On 3 7:56AM ; [facility] PAP SMEAR CERVIX W LGSIL 05/20/2012 ZHANNA PAEZ MD Active Last Documented On 3 7:56AM ; [facility] Plan of Treatment No Plan of Treatment Recorded Assessments Includes: Assessments from this encounter No Assessments Recorded Medical Equipment - Implanted Devices Includes: Current Devices No Medical Equipment Recorded Medications Includes: Medications discussed during this encounter and other current Medications Current Medications (continue as prescribed) Lunesta 3MG Oral Tablet 02/02/2017 Provider: Diagnosis: Last Documented On 7 8:06AM By PATIENCE HUDSON ; [facility] Daily Multiple Plus Iron Tablet 05/25/2015 Provi simran: Diagnosis: Last Documented On 6 8:28AM By PATIENCE HUDSON ; [facility] SM Fish Oil 1000 MG Capsule, conventional 05/25/2015 Provider: Diagnosis: qid Last Documented On 6 8:28AM By PATIENCE HUDSON ; [facility] Vitamin C 500 MG Tablet 05/25/2015 Provider: Diagnosis: Last Documented On 6 8:29AM By PATIENCE HUDSON ; [facility] Tylenol 325 MG Tablet 05/25/2015 Provider: Diagnosis: as needed Last Documented On 6 8:30AM By PATIENCE HUDSON ; [facility] Daily Value Multivitamin OR TABS 03/25/2012 Provider : Diagnosis: 1QD Last Documented On 03/25/2012 8:10AM By CLAYTON CARTER LPN ; [facility] Medications Administered Includes: Administered Medications from [...] Active Last Documented On 9 3:46PM ; [facility] Peppers Allergy 05/25/2015 Active Last Documented On 9 3:46PM ; [facility] Insurance Includes: Active Insurance Policies Plan Name Member ID Group # Subscriber Relationship Effect jimmie Dates 1 - [facility] [id number] MARCOS ROSSI Clinical Notes Includes: Clinical Notes from this encounter No Clinical Notes Recorded
[2024-06-06 07:47] VITALS: BP 120/85; PULSE 90; RESP 18; TEMP 36.7; O2SAT 99
--- NOTE | 2024-06-06 08:01 | P.PNAN_ITS ---
Anes - Initial Pre Proc Eval Procedure: Operation Date: 06/06/24 09:00 Proposed Procedures p Esophagogastroduodenoscopy & Colonoscopy - Koby Ojeda MD Date/Time: 06/06/24 08:01 Surgeon: Koby Ojeda MD Pre Op Diagnosis: Crohn disease Patient Data Age: 48 Gender: F Height: 1.6 m Weight: 71 kg Last Vital Signs Temp 36.7 C 06/06/24 07:47 Pulse 90 06/06/24 07:47 Resp 18 06/06/24 07:47 BP 120/85 06/06/24 07:47 Pulse Ox 99 06/06/24 07:47 O2 Del Method Room Air 06/06/24 07:47 Allergies Allergy/AdvReac Type Severity Reaction Status Date / Time erythromycin base AdvReac Nausea Verified 06/06/24 07:46 Home Medications ?Medication ?Instructions ?Recorded ?Confirmed ?Type lactobacillus comb no.10 20 20,000 mmu cells PO DAILY 02/07/22 06/06/24 History billion cell capsule (Probiotic) multivitamin 1 tablet PO DAILY 02/07/22 05/27/24 History levothyroxine 25 mcg tablet 25 mcg PO DAILY #30 tabs 08/25/23 06/06/24 Rx (Synthroid) conjugated estrogens 1.25 mg 1.25 mg PO DAILY #90 tabs 02/26/24 06/06/24 Rx tablet (Premarin) fluoxetine 20 mg capsule 20 mg PO DAILY #90 caps 02/26/24 06/06/24 Rx omeprazole 20 mg capsule,delayed 20 mg PO DAILY #90 caps 02/26/24 06/06/24 Rx release trazodone 50 mg tablet 50 mg PO QHS PRN sleep #90 tabs 03/18/24 05/27/24 Rx prednisone 5 mg tablet 5 mg PO DIRECTED #252 tabs 04/20/24 06/06/24 Rx Entyvio 300 mg intravenous See Rx Instructions .Route 05/03/24 05/27/24 Rx solution (vedolizumab) .COMPLEX #1 ea Patient hx anesthesia problems: none Family hx anesthesia problems: none Results Review: All pre-operative results and documents have been reviewed as part of the pre- operative evaluation. [facility] Past Medical History Medical History Insulin resistance syndrome Weight gain Suprapubic pain Ligia's disease Anxiety Stricture of small intestine Periumbilical pain Crohn's disease of ileum with fistula Crohn's disease of both small and large intestine with abscess Crohn's disease of both small and large intestine Thyroid disease Colon cancer screening Enlarged uterus Labral tear of right hip joint Chronic insomnia Crohn's disease Surgical History Surgical History Hx of abdominal hysterectomy (~02/2022) Feb 2022 History of tonsillectomy H/O prior ablation treatment (~09/2021) History of delivery Social History Social History Smoking status: Never smoker Alcohol intake: current Drinks per week: 1 Alcohol use details: one or two month Substance use: never Substance use type: does not use Lack of Transportation: No Lack of Food: Never True Current Housing: I Have Housing Concerned About Future Housing: No Difficulty Paying Gas/Electric Bills: No Difficulty Paying for Meds: No Currently Unemployed: No Education: Master's Degree or Higher Difficulty w/ Childcare or Family Care: No Living arrangements: with family Spiritual care concerns: No Anes - Eval Final PreProcedure Day of Procedure 06/06/24 08:01 Patient weight: overweight Heart: regular rate and rhythm Lungs: clear to auscultation Airway: Mallampati scale class II Neurological: alert and oriented Last oral intake: >/= 8 hours ASA classification: III Emergent: no Anesthetic plan: proceed Anesthesia type and monitoring: general GIVS and standard monitoring Results Review: All pre-operative results and documents have been reviewed as part of the pre- operative evaluation. Informed Consent: The patient's anesthetic plan and its attendant risks and benefits were discussed with the patient/family/POA. Questions were solicited and answers provided to the satisfaction of the patient/family/POA.
[2024-06-06] MEDS: LACTATED RINGERS 1,000 ML 150 ML IV CONT (08:02)
--- NOTE | 2024-06-06 08:34 | PM.HPGS ---
History of Present Illness History of Present Illness Consent: Risks, benefits, and alternatives have been discussed and questions answered. Patient agrees to proceed with procedure. Chief complaint: Crohn disease Narrative: Kiersten Mix is a 48 year old female here for colonoscopy, last one 06/2023 (noted stricture in ascending and unable to reach TI). she has history of Crohn's disease with complications of abscess, ascending colon stricture and fistula diagnosed about 11 years ago. Last SBFT also noted stricture TI. Started on entyvio for 13 months and doing much better, lately had flare and on prednisone taper. Also had GERD but recently better, no recent EGD. Review of Systems Review of Systems: All systems reviewed & are unremarkable except as noted in HPI and below PMFSH Past Medical History Medical History Insulin resistance syndrome Weight gain Suprapubic pain Ligia's disease Anxiety Stricture of small intestine Periumbilical pain Crohn's disease of ileum with fistula Crohn's disease of both small and large intestine with abscess Crohn's disease of both small and large intestine Thyroid disease Colon cancer screening Enlarged uterus Labral tear of right hip joint Chronic insomnia Crohn's disease Surgical History Surgical History Hx of abdominal hysterectomy (~02/2022) Feb 2022 History of tonsillectomy H/O prior ablation treatment (~09/2021) History of delivery Social History Social History Smoking status: Never smoker Alcohol intake: current Drinks per week: 1 Alcohol use details: one or two month Substance use: never Substance use type: does not use Lack of Transportation: No Lack of Food: Never True Current Housing: I Have Housing Concerned About Future Housing: No Difficulty Paying Gas/Electric Bills: No Difficulty Paying for Meds: No Currently Unemployed: No Education: Master's Degree or Higher Difficulty w/ Childcare or Family Care: No Living arrangements: with family Spiritual care concerns: No Meds Home Medications and Allergies Home Medications ?Medication ?Instructions ?Recorded ?Confirmed ?Type lactobacillus comb no.10 20 20,000 mmu cells PO DAILY 02/07/22 06/06/24 History billion cell capsule (Probiotic) multivitamin 1 tablet PO DAILY 02/07/22 05/27/24 History levothyroxine 25 mcg tablet 25 mcg PO DAILY #30 tabs 08/25/23 06/06/24 Rx (Synthroid) conjugated estrogens 1.25 mg 1.25 mg PO DAILY #90 tabs 02/26/24 06/06/24 Rx tablet (Premarin) fluoxetine 20 mg capsule 20 mg PO DAILY #90 caps 02/26/24 06/06/24 Rx omeprazole 20 mg capsule,delayed 20 mg PO DAILY #90 caps 02/26/24 06/06/24 Rx release trazodone 50 mg tablet 50 mg PO QHS PRN sleep #90 tabs 03/18/24 05/27/24 Rx prednisone 5 mg tablet 5 mg PO DIRECTED #252 tabs 04/20/24 06/06/24 Rx Entyvio 300 mg intravenous See Rx Instructions .Route 05/03/24 05/27/24 Rx solution (vedolizumab) .COMPLEX #1 ea Allergies Allergy/AdvReac Type Severity Reaction Status Date / Time erythromycin base AdvReac Nausea Verified 06/06/24 07:46 Vital Signs Vital Signs - 24 hr 06/06/24 07:47 Temperature 98.1 F Pulse Rate 90 Respiratory Rate 18 Blood Pressure 120/85 Pulse Oximetry 99 Oxygen Delivery Room Air Exam Const: General: comfortable and no acute distress HENMT: Face/Nose/Sinus: Normal nares present Eyes: General: appearance normal, both eyes and all related structures Neck: Neck: no JVD Resp: Auscultation: clear to auscultation bilaterally Cardio: Rate: regular rate Rhythm: regular rhythm GI: Inspection: non-distended GI Palp: Yes Soft to palpation Skin: General skin exam: normal color Neuro: General: gait normal Speech: normal speech Extrem: General: normal to inspection Psych: Mental Status: mental status grossly normal Assessment and Plan Assessment and plan (1) GERD (gastroesophageal reflux disease): Qualifiers: Esophagitis presence: esophagitis presence not specified Qualified Code(s): K21.9 - Gastro-esophageal reflux disease without esophagitis Code(s): K21.9 - Gastro-esophageal reflux disease without esophagitis Status: Acute Assessment and Plan: egd with bx (2) Crohn's disease of both small and large intestine: Code(s): K50.80 - Crohn's disease of both small and large intestine without complications Status: Acute Assessment and Plan: colonoscopy doing much better with entyvio (3) Stricture of small intestine: Code(s): K56.699 - Other intestinal obstruction unspecified as to partial versus complete obstruction Status: Resolved
--- NOTE | 2024-06-06 08:44 | SUR.OPER ---
EGD ended at 0839, colon began at 0843.
[2024-06-06 09:01] VITALS: BP 108/53; PULSE 80; RESP 24; O2SAT 100
[2024-06-06 09:11] VITALS: BP 120/84; PULSE 69; RESP 20; O2SAT 100
[2024-06-06 09:21] VITALS: BP 118/78; PULSE 65; RESP 17; O2SAT 100
== END 2024-06-06 09:27 | disposition home or self-care (01) ==
PROVIDERS: PCP Family Medicine; Referring Provider Internal Medicine Gastroenterology; Visit Provider Internal Medicine Gastroenterology
PROC: 0DJ08ZZ Inspection of Upper Intestinal Tract, Via Natural or Artificial Opening Endoscopic (ICD-10-PCS; CPT 45378; principal; 2024-06-06 09:00)
DX: K50.80 Crohn's disease of both small and large intestine without complications (principal); K56.699 Other intestinal obstruction unspecified as to partial versus complete obstruction; K21.9 Gastro-esophageal reflux disease without esophagitis; K64.8 Other hemorrhoids; K57.30 Diverticulosis of large intestine without perforation or abscess without bleeding; E06.3 Autoimmune thyroiditis; F41.9 Anxiety disorder, unspecified; F51.04 Psychophysiologic insomnia; E88.818 Other insulin resistance; Z79.52 Long term (current) use of systemic steroids; Z98.890 Other specified postprocedural states; Z86.79 Personal history of other diseases of the circulatory system; Z87.19 Personal history of other diseases of the digestive system
CPT/HCPCS: 43239; 45380; 88305; J2003; J2704; J7120

== ENCOUNTER 2024-06-24 11:04 | Outpatient (CLI) | payer BC, SELFPAY ==
--- OUTSIDE RECORDS SUMMARY | 2024-06-24 11:07 | XMS_ITS | Clinical Summary ---
Author Organization [facility] Address [address] [place] [address] [place] [address] Phone Care Team Providers Care Manipulative Therapy Specialist Name Role Phone Unavailable Primary Care Provider [...] days. 3 mL 4 02/11/2024 12:13 PM FEATHER RENOVATOR 4 Active FLUoxetine (PROzac) 20 mg capsule Take 1 Capsule (20 mg) by mouth daily. 90 Capsule 02/26/2024 7:41 PM FEATHER RENOVATOR 5 Active omeprazole (PriLOSEC) 20 mg Capsule, Delayed Release(E.C.) Take 1 Capsule (20 mg) by mouth daily. 90 Capsule 02/26/2024 7:41 PM FEATHER RENOVATOR 5 Active tirzepatide (Mounjaro) 2.5 mg/0.5 mL Pen Injector Inject 0.5 mL (2.5 mg) by subcutaneous injection every 7 days. 2 mL 5 Active traZODone (DESYREL) 50 mg tablet Take 1 Tablet (50 mg) by mouth nightly as needed for sleep. 90 Tablet 1 03/31/2024 3:13 PM FEATHER RENOVATOR 5 Active predniSONE (DELTASONE) 5 mg tablet Take 8 tablets by mouth daily for 7 days, decreasing by 1 tablet every 7 days. (8 tablets, then 7, 6, 5, 4, 3, 2, 1) 252 Tablet 04/20/2024 7:25 PM FEATHER RENOVATOR 5 Active Encounters Date Type Department Care Team [...] 19+ 3-dose series) 04/1992 HPV/Cotest (21-29) 1994 CERVICAL CANCER SCREENING 09/19/2003 HPV/Cotest (30-65) 09/19/2003 PAP SMEAR 09/19/2003 BREAST CANCER SCREENING 2013 COLORECTAL SCREENING 2018 Colorectal Cancer Screening 2018 FIT-DNA Q 3 years 2018 FIT/FOBT Q 1 year 2018 Flex Sig/CT Colonography Q 5 years 2018 INFLUENZA VACCINE (#1) 2023 ZOSTER VACCINE (1 of 2) 09/19/2023 Insurance RX [facility]
--- OUTSIDE RECORDS SUMMARY | 2024-06-24 11:07 | XMS_ITS | Clinical Summary ---
Author Organization [facility] [employer] Address [address] [place] [address] Care Team Providers Care Co Chairman Name Role Phone Pawel Montoya MD Unavailable Source Comments [facility],non-owned Affiliates and Associated Physician Practices is amultiple site organization consisting of ambulatory clinics and hospital sitesin [place], [place], [place] and [place]. This disclosure is being madepursuant to the Care Everywhere program and may not contain all information available regarding this patient. 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 Not on file No [...] MAMMO BILAT SCREENING Routine 04/07/2011 2:02 PM RAT EXTERMINATOR Screening for breast cancer from Last 3 [...] PM CDT Narrative Resulting Agency Comment [facility] [address] [facility] [id number] Tommy Marr DO LAB - CHEMISTRY ORDERABLES Final Result [facility] ACCOUNT BILL [address] [place] [address] * MAMMO SCREENING DIGITAL IMAGE BILAT (04/07/2011 2:02 PM RAT EXTERMINATOR) Anatomical Region Laterality Modality Breast Bilateral Mammography 04/07/2011 2:24 PM RAT EXTERMINATOR Narrative 04/07/2011 2:53 PM RAT EXTERMINATOR DIGITAL BILATERAL SCREENING MAMMOGRAMS WITH CAD CORRELATION DATE: 04/07/2011 PERTINENT HISTORY: Routine screening. Baseline TECHNIQUE: Bilateral craniocaudad (CC) and mediolateral oblique (MLO) views. These images were interpreted with the aid of the iCAD Second Look. TECHNOLOGIST: Marielena Little RT(R)(M). TISSUE DENSITY: Dense, which lowers the sensitivity of mammography. FINDINGS: No discrete abnormality. ASSESSMENT: Negative, BIRADS 1. RECOMMENDATIONS: Routine follow-up per national guidelines. The above findings should be correlated with physical examination. A relatively nonspecific study should not preclude additional evaluation if suspicious findings are present clinically. An [employer] Certified Facility Procedure Note [...] if suspicious findings are present clinically. An [employer] Certified Facility Matthew Adrian DO MAMMO ORDERABLES Final Result from Last 3 Months or Most Recently Relevant to Health Maintenance Insurance [facility] SELF PAY NO INSURANCE Member Subscriber Plan / Payer (Ef fective for All Dates) Name:Kiersten Mix Member ID:Not on file Relation to Subscriber:Not on file Name:KIERSTEN MIX Subscriber ID:Not on file (Home) Address: [address] [place] [address] Payer ID:Not on file Group ID:Not on file Type:Self Pay Address: [place], [place] [facility] [facility] Care Teams Co Chairman Relationship Specialty Start Date End Date Pawel Montoya MD [address] [address] Obstetrics and Gynecology 10/19/13
--- OUTSIDE RECORDS SUMMARY | 2024-06-24 11:07 | XMS_ITS | Clinical Summary ---
Author Organization [facility] Address [address] [place] [address] Phone Care Team Providers Care Price Clerk Name Role Phone Joycelyn Stoutmacrina LangAmando Primary Care Provider [phone] Social History Tobacco Use Types Packs/Day Years Used Date Smoking Tobacco: Never Assessed Comments No Sex and Gender Information Value Date Recorded Sex Assigned at Not on file Legal Sex Female 3:42 PM INDUSTRY ANALYST Gender Identity Not on file Sexual Orientation [...] Procedure Name Priority Date/Time Associated Diagnosis Comments [facility] SCREENING BILATERAL DIGITAL W CAD W VENKAT Routine 04/10/2018 11:40 AM INDUSTRY ANALYST Encounter for screening mammogram for malignant neoplasm of breast from Last 3 Months or Most Recently Relevant to Health Maintenance Results * [facility] SCREENING BILATERAL DIGITAL W CAD W VENKAT (04/10/2018 11:40 AM INDUSTRY ANALYST) Anatomical Region Laterality Modality breast Bilateral Mammography 04/10/2018 11:1 9 AM INDUSTRY ANALYST Narrative 04/12/2018 12:56 PM INDUSTRY ANALYST - [facility] SCREENING BILATERAL DIGITAL W CAD W [...] Comparison is made to exams dated: 10/08/2015 [facility] and 04/07/2011 [facility]. BREAST TISSUE:The tissue [...] exam. Electronically signed by: Susy lopez/liat:04/12/2018 12:28:43 Clothing Room Supervisor: Esperanza QUINTEROS(Juan)(Jarrett), [facility] letter sent: Normal Exam Reading location: YOUNG BI-RADS: 1 Negative Procedure Note Susy Stratton MD - 04/12/2018 - [facility] SCREENING BILATERAL DIGITAL W CAD [...] Comparison is made to exams dated: 10/08/2015 [facility] and 04/07/2011 [facility]. BREAST TISSUE:The tissue [...] exam. Electronically signed by: Susy lopez/liat:04/12/2018 12:28:43 Clothing Room Supervisor: Esperanza QUINTEROS(R)(M), [facility] letter sent: Normal Exam Reading location: YOUNG BI-RADS: 1 Negative Pawel Montoya MD IMG MAMMO ORDERABLES Final Res ult from Last 3 Months or Most Recently Relevant to Health Maintenance Insurance [facility] Care Teams Price Clerk Relationship Specialty Start Date End Date Kieran Stout DO [address] [address] PCP - General Family Medicine 08/21/15
== END 2024-06-24 11:05 | disposition home or self-care (01) ==
PROVIDERS: PCP Family Medicine; Visit Provider Nurse Practitioner
DX: K50.919 Crohn's disease, unspecified, with unspecified complications (principal)
CPT/HCPCS: 83993

== ENCOUNTER 2024-06-30 08:32 | Outpatient (CLI) | payer BC, SELFPAY ==
--- NOTE | ~2024-06-30 | XR_ITS ---
EXAMINATION: XR small bowel follow through DATE: 06/30/2024 09:53 INDICATION: Other intestinal obstruction. Crohn's disease. TECHNIQUE: Guidance Consultant radiograph(s) of the abdomen was/were obtained. Oral contrast was administered, and sequential radiographs of the abdomen were obtained until oral contrast was noted to be in the proxi mal colon. Spot fluoroscopic images of the small bowel were obtained. Fluoroscopy exposure time was 2 .3 minutes. A total of 23 fluoroscopic images and 5 overhead radiographs were obtained. Total DAP was 51.202 mGycm^2. COMPARISON: Small bowel follow-through dated 07/01/[address] dated 05/08/2023 FINDINGS: Guidance Consultant image demonstrates a normal bowel gas pattern and a few phleboliths in the pelvis. Transit time from the stomach to proximal colon was approximately 30 minutes. There is irregular appearance to th e distal ileum in the pelvis which demonstrates several small strictures with intervening large diver ticula with outpouchings of contrast. A fistulous communication is seen extending between the distal ileum in the distal sigmoid colon resulting in premature filling of the rectum. On the 30 minute imag ing and fluoroscopic images prior to contrast opacification of the transverse or descending colon. Th ere is normal mucosal fold thickening in the jejunum and proximal ileum. IMPRESSION: 1. Irregular distal ileum with large diverticula arising between short segments of stricture which do not appear obstructing with normal small bowel transit time of 30 minutes and no dilated more proxim al small bowel to suggest significant obstruction. 2. 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 Reviewed, dictated and finalized at location A. IMPRESSION: 1. Irregular distal ileum with large diverticula arising between short segments of stricture which do not appear obstructing with normal small bowel transit t chalino of 30 minutes and no dilated more proximal small bowel to suggest significa nt obstruction. 2. 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
--- OUTSIDE RECORDS SUMMARY | 2024-06-30 08:39 | XMS_ITS | Clinical Summary ---
Author Organization [facility] [employer] Address [address] [place] [address] Care Team Providers Care Manager Mortgage Name Role Phone Pawel Montoya MD Unavailable Source Comments [facility],non-owned Affiliates and Associated Physician Practices is amultiple site organization consisting of ambulatory clinics and hospital sitesin [place], [place], [place] and [place]. This disclosure is being madepursuant to the Care Everywhere program and may not contain all information available regarding this patient. 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 Not on file [...] MAMMO BILAT SCREENING Routine 04/07/2011 2:02 PM MANAGING DIRECTOR Screening for breast cancer from Last 3 [...] PM CDT Narrative Resulting Agency Comment [facility] [address] [facility] [id number] Tommy Marr DO LAB - CHEMISTRY ORDERABLES Final Result [facility] ACCOUNT BILL [address] [place] [address] * MAMMO SCREENING DIGITAL IMAGE BILAT (04/07/2011 2:02 PM MANAGING DIRECTOR) Anatomical Region Laterality Modality Breast Bilateral Mammography 04/07/2011 2:24 PM MANAGING DIRECTOR Narrative 04/07/2011 2:53 PM MANAGING DIRECTOR DIGITAL BILATERAL SCREENING MAMMOGRAMS WITH CAD CORRELATION [...] if suspicious findings are present clinically. An [employer] Certified Facility Procedure Note [...] if suspicious findings are present clinically. An [employer] Certified Facility Matthew Adrian DO MAMMO ORDERABLES Final Result from Last 3 Months or Most Recently Relevant to Health Maintenance Insurance [facility] SELF PAY NO INSURANCE Member Subscriber Plan / Payer (Ef fective for All Dates) Name:Kiersten Mix Member ID:Not on file Relation to Subscriber:Not on file Name:KIERSTEN MIX Subscriber ID:Not on file (Home) Address: [address] [place] [address] Payer ID:Not on file Group ID:Not on file Type:Self Pay Address: [place], [place] ANTHEM ANTHEM Care Teams Manager Mortgage Relationship Specialty Start Date End Date Pawel Montoya MD [address] [address] Obstetrics and Gynecology 10/19/13
--- OUTSIDE RECORDS SUMMARY | 2024-06-30 08:39 | XMS_ITS | Clinical Summary ---
Author Organization [facility] Address [address] [place] [address] Phone Care Team Providers Care Ship Joiner Name Role Phone Kieran Stout Amando Primary Care Provider [phone] Social History Tobacco Use Types Packs/Day Years Used Date Smoking Tobacco: Never Assessed Comments No Sex and Gender Information Value Date Recorded Sex Assigned at Not on file Legal Sex Female 3:42 PM BIOMETRICS INSTRUCTOR Gender Identity Not on file Sexual Orientation [...] Procedure Name Priority Date/Time Associated Diagnosis Comments [facility] SCREENING BILATERAL DIGITAL W CAD W VENKAT Routine 04/10/2018 11:40 AM BIOMETRICS INSTRUCTOR Encounter for screening mammogram for malignant neoplasm of breast from Last 3 Months or Most Recently Relevant to Health Maintenance Results * [facility] SCREENING BILATERAL DIGITAL W CAD W VENKAT (04/10/2018 11:40 AM BIOMETRICS INSTRUCTOR) Anatomical Region Laterality Modality breast Bilateral Mammography 04/10/2018 11:1 9 AM BIOMETRICS INSTRUCTOR Narrative 04/12/2018 12:56 PM BIOMETRICS INSTRUCTOR - [facility] SCREENING BILATERAL DIGITAL W CAD W VENKAT [...] Comparison is made to exams dated: 10/08/2015 [facility] and 04/07/2011 [facility]. BREAST TISSUE:The tissue [...] exam. Electronically signed by: Susy lopez/liat:04/12/2018 12:28:43 Real Estate Clerk: Esperanza QUINTEROS(Juan)(Jarrett), [facility] letter sent: Normal Exam Reading location: YOUNG BI-RADS: 1 Negative Procedure Note Susy Stratton MD - 04/12/2018 - [facility] SCREENING BILATERAL DIGITAL W CAD [...] Comparison is made to exams dated: 10/08/2015 [facility] and 04/07/2011 [facility]. BREAST TISSUE:The tissue [...] exam. Electronically signed by: Susy lopez/liat:04/12/2018 12:28:43 Real Estate Clerk: Esperanza QUINTEROS(R)(M), [facility] letter sent: Normal Exam Reading location: YOUNG BI-RADS: 1 Negative Pawel Montoya MD IMG MAMMO ORDERABLES Final Res ult from Last 3 Months or Most Recently Relevant to Health Maintenance Insurance [facility] Care Teams Ship Joiner Relationship Specialty Start Date End Date Kieran Stout DO [address] [address] PCP - General Family Medicine 08/21/15
--- OUTSIDE RECORDS SUMMARY | 2024-06-30 08:39 | XMS_ITS | Clinical Summary ---
Author Organization [facility] Address [address] [place] [address] Phone Care Team Providers Care Image Consultant Name Role Phone Unavailable Primary Care Provider [...] days. 3 mL 4 02/11/2024 12:13 PM GRAVITY PROSPECTING OBSERVER HELPER 4 Active FLUoxetine (PROzac) 20 mg capsule Take 1 Capsule (20 mg) by mouth daily. 90 Capsule 02/26/2024 7:41 PM GRAVITY PROSPECTING OBSERVER HELPER 5 Active omeprazole (PriLOSEC) 20 mg Capsule, Delayed Release(E.C.) Take 1 Capsule (20 mg) by mouth daily. 90 Capsule 02/26/2024 7:41 PM GRAVITY PROSPECTING OBSERVER HELPER 5 Active tirzepatide (Mounjaro) 2.5 mg/0.5 mL Pen Injector Inject 0.5 mL (2.5 mg) by subcutaneous injection every 7 days. 2 mL 5 Active traZODone (DESYREL) 50 mg tablet Take 1 Tablet (50 mg) by mouth nightly as needed for sleep. 90 Tablet 1 03/31/2024 3:13 PM GRAVITY PROSPECTING OBSERVER HELPER 5 Active predniSONE (DELTASONE) 5 mg tablet Take 8 tablets by mouth daily for 7 days, decreasing by 1 tablet every 7 days. (8 tablets, then 7, 6, 5, 4, 3, 2, 1) 252 Tablet 04/20/2024 7:25 PM GRAVITY PROSPECTING OBSERVER HELPER 5 Active Encounters Date Type Department Care [...] (1 of 2) 09/19/2023 Insurance RX [facility]
== END 2024-06-30 08:33 | disposition home or self-care (01) ==
PROVIDERS: PCP Family Medicine; Visit Provider Surgery
DX: K57.90 Diverticulosis of intestine, part unspecified, without perforation or abscess without bleeding (principal); K63.2 Fistula of intestine; K56.699 Other intestinal obstruction unspecified as to partial versus complete obstruction; K50.013 Crohn's disease of small intestine with fistula
CPT/HCPCS: 74250

== ENCOUNTER 2024-12-01 07:02 | Outpatient (CLI) | payer BC, SELFPAY ==
--- OUTSIDE RECORDS SUMMARY | 2024-12-01 07:06 | XMS_ITS | Clinical Summary ---
Author Organization [facility] Address [address] [place] [address] Phone Care Team Providers Care Contract Negotiator Name Role Phone Kieran Stout Amando Primary Care Provider [phone]- [phone] Social History Tobacco Use Types Packs/Day Years Used Date Smoking Tobacco: Never Assessed Comments No Sex and Gender Information Value Date Recorded Sex Assigned at Not on file Legal Sex Female 3:42 PM SECURITY AUDITOR Gender Identity Not on file Sexual Orientation Not on file Plan of Treatment Health Maintenance Due Date Last Done Comments Hepatitis C Virus (HCV) Screening 1973 TdaP Immunization 1973 Hepatitis B Immunization (1 of 3 - 19+ 3-dose series) 1992 Pap Smear 1994 Cervical Cancer Screening (CCS) 09/19/2003 HPV/Cotest 09/19/2003 Cologuard 2018 Colonoscopy 2018 Colorectal Cancer Screening 2018 Immunochemical Fecal Occult Blood 2018 Pneumococcal Immunization (5 0+ years) (1 of 1 - PCV) 09/19/2023 Zoster Immunization (1 of 2) 09/19/2023 Influenza Immunization (#1) 2024 SARS-COV-2 Immunization ( - season) 2024 11/16/2020, 05/15/2020, 04/16/2020 Respiratory Syncytial Virus (RSV) Immunization (Adult) (1 - 1-dose 75+ series) 2048 Discussion re Starting/Frequency of Mammograms Discontinued 04/10/2018, 10/08/2015 Mammogram Discontinued 04/10/2018, 10/08/2015 Human Papillomavirus (HPV) Immunization Aged Out No longer eligible based on patient's age to complete this topic Meningococcal Immunization (ACWY) Aged Out No longer eligible based on patient's age to complete this topic Rotavirus Immunization Aged Out No lo nger eligible based on patient's age to complete this topic Procedures Procedure Name Priority Date/Time Associated Diagnosis Comments [facility] SCREENING BILATERAL DIGITAL W CAD W VENKAT Routine 04/10/2018 11:40 AM SECURITY AUDITOR Encounter for screening mammogram for malignant neoplasm of breast from Last 3 Months or Most Recently Relevant to Health Maintenance Results * [facility] SCREENING BILATERAL DIGITAL W CAD W VENKAT (04/10/2018 11:40 AM SECURITY AUDITOR) Anatomical Region Laterality Modality breast Bilateral Mammography 04/10/2018 11:1 9 AM SECURITY AUDITOR Narrative 04/12/2018 12:56 PM SECURITY AUDITOR - [facility] SCREENING BILATERAL DIGITAL W CAD W [...] is made to exams dated: 10/08/2015 [facility] and 04/07/2011 [facility]. BREAST TISSUE:The [...] Electronically signed by: Susy lopez/liat:04/12/2018 12:28:43 Manager Appointment: Esperanza QUINTEROS(Juan)(M), [facility] letter sent: Normal Exam Reading location: YOUNG BI-RADS: 1 Negative Procedure Note Susy Stratton MD - 04/12/2018 - [facility] SCREENING BILATERAL DIGITAL W CAD W [...] is made to exams dated: 10/08/2015 [facility] and 04/07/2011 [facility]. BREAST TISSUE:The [...] Electronically signed by: Susy lopez/liat:04/12/2018 12:28:43 Manager Appointment: Esperanza Mejias RT(R)(M), [facility] letter sent: Normal Exam Reading location: YOUNG BI-RADS: 1 Negative Pawel Montoya MD IMG MAMMO ORDERABLES Final Res ult from Last 3 Months or Most Recently Relevant to Health Maintenance Insurance [facility] Care Teams Contract Negotiator Relationship Specialty Start Date End Date Kieran Stout DO [address] [place] [address] PCP - General Family Medicine 08/21/15
--- OUTSIDE RECORDS SUMMARY | 2024-12-01 07:06 | XMS_ITS | Clinical Summary ---
Author Organization [facility] Address [address] [address] Phone Care Team Providers Care Bow Maker Gift Wrapping Name Role Phone Unavailable Primary Care Provider [...] days. 3 mL 4 02/11/2024 12:13 PM UNEMPLOYMENT SPECIALIST 4 Active FLUoxetine (PROzac) 20 mg capsule Take 1 Capsule (20 mg) by mouth daily. 90 Capsule 02/26/2024 7:41 PM UNEMPLOYMENT SPECIALIST 5 Active omeprazole (PriLOSEC) 20 mg Capsule, Delayed Release(E.C.) Take 1 Capsule (20 mg) by mouth daily. 90 Capsule 02/26/2024 7:41 PM UNEMPLOYMENT SPECIALIST 5 Active tirzepatide (Mounjaro) 2.5 mg/0.5 mL Pen Injector Inject 0.5 mL (2.5 mg) by subcutaneous injection every 7 days. 2 mL 5 Active predniSONE (DELTASONE) 5 mg tablet Take 8 tablets by mouth daily for 7 days, decreasing by 1 tablet every 7 days. (8 tablets, then 7, 6, 5, 4, 3, 2, 1) 252 Tablet 04/20/2024 7:25 PM UNEMPLOYMENT SPECIALIST 5 Active FLUoxetine (PROzac) 20 mg capsule Take 1 Capsule (20 mg) by mouth daily. 90 Capsule 08/24/2024 3:52 PM CDT Active Encounters Date Type Department Care Team Description 11/01/2024 External Device Data [facility] ABSTRACTION Provider, Abstract 09/20/2024 External Device Data [facility] ABSTRACTION Provider, Abstract 08/31/2024 External Device Data [facility] ABSTRACTION Provider, Abstract [...] Flex Sig/CT Colonography Q 5 years 2018 ZOSTER VACCINE (1 of 2) 09/19/2023 INFLUENZA VACCINE (#1) 2024 Insurance RX [facility] [employer]
--- OUTSIDE RECORDS SUMMARY | 2024-12-01 07:06 | XMS_ITS | Clinical Summary ---
Author Organization [facility] Address [address] [place] [address] Care Team Providers Care Wire Strander Name Role Phone Pawel Montoya MD Unavailable Source Comments [facility],non-owned Affiliates and Associated Physician Practices is amultiple site organization consisting of ambulatory clinics and hospital sitesin [place], [place], [place] and [place]. This disclosure is being madepursuant to the Care Everywhere program and may not contain all information available regarding this patient. 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 Not on file No [...] 2:19 PM CDT Height 160 cm (5' 3) 07/21/2017 2:19 PM CDT Body Mass Index [...] 09/19/2023 ZOSTER VACCINE (1 of 2) 09/19/2023 DEPRESSION SCREENING 02/17/2024 COVID-19 VACCINE (1 - 2023-2 5 season) 2024 INFLUENZA VACCINE (#1) 2024 HIB VACCINE Aged Out No longer [...] MAMMO BILAT SCREENING Routine 04/07/2011 2:02 PM PRE PLANNING ADVISOR Screening for breast cancer from Last 3 [...] PM CDT Narrative Resulting Agency Comment [facility] [address] [id number] Tommy Marr DO LAB - CHEMISTRY ORDERABLES Final Result [facility] ACCOUNT BILL [address] [place] [address] * MAMMO SCREENING DIGITAL IMAGE BILAT (04/07/2011 2:02 PM PRE PLANNING ADVISOR) Anatomical Region Laterality Modality Breast Bilateral Mammography 04/07/2011 2:24 PM PRE PLANNING ADVISOR Narrative 04/07/2011 2:53 PM PRE PLANNING ADVISOR DIGITAL BILATERAL SCREENING MAMMOGRAMS WITH CAD CORRELATION [...] if suspicious findings are present clinically. An [employer] [facility]ified [facility] Procedure Note [...] if suspicious findings are present clinically. An [employer] [facility] Matthew Adrian DO MAMMO ORDERABLES Final Result from Last 3 Months or Most Recently Relevant to Health Maintenance Insurance [facility] SELF PAY NO INSURANCE Member Subscriber Plan / Payer (Ef fective for All Dates) Name:Maria Del RosarioKate thornton Member ID:Not on file Relation to Subscriber:Not on file Name:MARIA DEL ROSARIOKATE THORNTON Subscriber ID:Not on file (Home) Address: [address] [place] [address] Payer ID:Not on file Group ID:Not on file Type:Self Pay Address: [place] [employer] Member Subscriber Plan / Payer (Ef fective 2023-Present) Name:Kate Mix Relation to Subscriber:Self Name:Kate Mix Payer ID:Not on file Group ID:Not on file Type:Commercial Address: [address] Care Teams Wire Strander Relationship Specialty Start Date End Date Pawel Montoya MD [address] [address] Obstetrics and Gynecology 10/19/13
[2024-12-01 09:13] LABS: Hematocrit 41.0 % (37.0-47.0); Hemoglobin 13.0 g/dL (12.0-15.0); Immature Granulocyte Percent A 0.4 % (0-0.5); Lymphocytes Absolute Auto 1.03 K/mm3 (0.9-3.2); Mean Corpuscular HGB Conc 31.7 g/dl (32-36); Mean Corpuscular Hemoglobin 28.6 pg (26-34); Mean Corpuscular Volume 90.1 fl (80-100); Nucleated Red Blood Cells Absolute Auto 0.000 K/mm3 (0.0-0.012); Nucleated Red Blood Cells Perc 0.0 % (0.0-0.2); Platelet Count Result 341 k/mm3 (150-375); Red Blood Count 4.55 M/mm3 (4.2-5.4); White Blood Count 5.5 K/mm3 (4.5-10.0)
[2024-12-01 09:40] LABS: Alanine Aminotransferase 29 U/L (6-35); Albumin Level 4.6 g/dL (3.5-5.1); Alkaline Phosphatase 70 U/L (38-126); Anion Gap 9 mmol/L (4-12); Aspartate Amino Transferase 28 U/L (14-36); Bilirubin,Total 0.4 mg/dL (0.2-1.3); Blood Urea Nitrogen 21 mg/dL (7-17); Calcium 9.5 mg/dL (8.4-10.2); Carbon Dioxide 29 mmol/L (22-30); Chloride 103 mmol/L (98-107); Cholesterol 193 mg/dL (0-200); Estimated Glomerular Filt Rate 60; Glucose 90 mg/dL (65-110); HDL Direct 53 mg/dL; Potassium 4.0 mmol/L (3.4-5.0); Sodium 141 mmol/L (137-145); Total Protein 7.6 g/dL (6.3-8.2); Triglycerides 65 mg/dL (<150)
[2024-12-01 09:57] LABS: Free T3 4.01 pg/mL (2.71-6.16); Free T4 Free Thyroxine 1.05 ng/dL (0.78-2.19)
[2024-12-01 10:15] LABS: Thyroid Stimulating Hormone 1.730 uIU/mL (0.465-4.680)
[2024-12-01 19:06] LABS: Iron 90 ug/dL (37-170)
[2024-12-01 19:18] LABS: Percent Iron Saturation 26 % (20-50)
[2024-12-01 19:51] LABS: Ferritin 30.20 ng/mL (11.1-264)
== END 2024-12-01 07:03 | disposition home or self-care (01) ==
LOC: ANHLAB 07:04
PROVIDERS: PCP Nurse Practitioner Family; Visit Provider Nurse Practitioner Family
DX: E06.3 Autoimmune thyroiditis (principal); I10 Essential (primary) hypertension; K50.80 Crohn's disease of both small and large intestine without complications; E78.5 Hyperlipidemia, unspecified
CPT/HCPCS: 36415; 80053; 80061; 82728; 83520; 83540; 83550; 84439; 84443; 84481; 85025; 86376

== ENCOUNTER 2025-02-14 13:36 | Outpatient (CLI) | payer BC, SELFPAY ==
--- OUTSIDE RECORDS SUMMARY | 2025-02-14 13:51 | XMS_ITS | Clinical Summary ---
Author Organization [facility] Address [address] [place] [address] Phone Care Team Providers Care Utility Tender Carding Name Role Phone Kieran Stout Amando Primary Care Provider +1- [phone] Social History Tobacco Use Types Packs/Day Years Used Date Smoking Tobacco: Never Assessed Comments No Sex and Gender Information Value Date Recorded Sex Assigned at Not on file Legal Sex Female 3:42 PM CROWN POUNCER Gender Identity Not on file Sexual Orientation [...] Discontinued 04/10/2018, 10/08/2015 Human Papillomavirus (HPV) Immunization (No Doses Required) Completed Meningococcal Immunization (ACWY) Aged Out No longer eligible based on patient's age to complete this topic Rotavirus Immunization Aged Out No lo nger eligible based on patient's age to complete this topic Procedures Procedure Name Priority Date/Time Associated Diagnosis Comments [facility] SCREENING BILATERAL DIGITAL W CAD W VENKAT Routine 04/10/2018 11:40 AM CROWN POUNCER Encounter for screening mammogram for malignant neoplasm of breast from Last 3 Months or Most Recently Relevant to Health Maintenance Results * [facility] SCREENING BILATERAL DIGITAL W CAD W VENKAT (04/10/2018 11:40 AM CROWN POUNCER) Anatomical Region Laterality Modality breast Bilateral Mammography 04/10/2018 11:1 9 AM CROWN POUNCER Narrative 04/12/2018 12:56 PM CROWN POUNCER - [facility] SCREENING BILATERAL DIGITAL W CAD W [...] Comparison is made to exams dated: 10/08/2015 [facility] and 04/07/2011 [facility]. BREAST TISSUE:The [...] exam. Electronically signed by: Susy lopez/liat:04/12/2018 12:28:43 Software Verification Engineer: Esperanza QUINTEROS(Juan)(M), [facility] letter sent: Normal Exam Reading location: YOUNG BI-RADS: 1 Negative Procedure Note Susy Stratton MD - 04/12/2018 - [facility] SCREENING BILATERAL DIGITAL W CAD [...] Comparison is made to exams dated: 10/08/2015 [facility] and 04/07/2011 [facility]. BREAST TISSUE:The [...] exam. Electronically signed by: Susy lopez/liat:04/12/2018 12:28:43 Software Verification Engineer: Esperanza VAZQUEZ)(Jarrett), [facility] letter sent: Normal Exam Reading location: YOUNG BI-RADS: 1 Negative Pawel Montoya MD IMG MAMMO ORDERABLES Final Res ult from Last 3 Months or Most Recently Relevant to Health Maintenance Insurance [facility] Care Teams Utility Tender Carding Relationship Specialty Start Date End Date Kieran Stout DO [address] [place] [address] PCP - General Family Medicine 08/21/15
--- OUTSIDE RECORDS SUMMARY | 2025-02-14 13:51 | XMS_ITS | Clinical Summary ---
Author Organization [facility] Address [address] [address] Phone Care Team Providers Care Sand Mixer Operator Name Role Phone Unavailable Primary Care Provider [...] days. 3 mL 4 02/11/2024 12:13 PM MAGNETIC TAPE WINDER 4 Active FLUoxetine (PROzac) 20 mg capsule Take 1 Capsule (20 mg) by mouth daily. 90 Capsule 02/26/2024 7:41 PM MAGNETIC TAPE WINDER 5 Active omeprazole (PriLOSEC) 20 mg Capsule, Delayed Release(E.C.) Take 1 Capsule (20 mg) by mouth daily. 90 Capsule 02/26/2024 7:41 PM MAGNETIC TAPE WINDER 5 Active tirzepatide (Mounjaro) 2.5 mg/0.5 mL Pen Injector Inject 0.5 mL (2.5 mg) by subcutaneous injection every 7 days. 2 mL 5 Active predniSONE (DELTASONE) 5 mg tablet Take 8 tablets by mouth daily for 7 days, decreasing by 1 tablet every 7 days. (8 tablets, then 7, 6, 5, 4, 3, 2, 1) 252 Tablet 04/20/2024 7:25 PM MAGNETIC TAPE WINDER 5 Active FLUoxetine (PROzac) 20 mg capsule Take 1 Capsule (20 mg) by mouth daily. 90 Capsule 08/24/2024 3:52 PM CDT Active Encounters Date Type Department Care Team Description 01/31/2025 External Device Data [facility] ABSTRACTION Provider, Abstract 12/06/2024 External Device Data [facility] ABSTRACTION Provider, Abstract [...]
[2025-02-16 22:07] LABS: Calprotectin, Fecal 33 ug/g (0-120)
== END 2025-02-14 13:37 | disposition home or self-care (01) ==
LOC: ANHLAB 13:38
PROVIDERS: PCP Nurse Practitioner Family; Visit Provider Nurse Practitioner
DX: K50.919 Crohn's disease, unspecified, with unspecified complications (principal)
CPT/HCPCS: 83993